=== PATIENT | male | born 1940 | race Caucasian/White ===

== ENCOUNTER 2017-06-03 09:38 | Inpatient (IN) | payer MEDICARE, OTHER ==
--- NOTE | 2017-06-03 09:49 | ER Document Report ---
ED Medical Screen (RME) - General Chief Complaint: Altered Mental Status Stated Complaint: POSSIBLE STROKE Time Seen by Provider: 06/03/17 09:44 Notes: According to the , patient acts as if he may be having another stroke this morning. He was fine when he went to bed. However, after awakening this morning, about 7 or 7:30 AM, noted that the patient was confused, shaking, and had trouble controlling his bowel movement. He is able to walk without difficulty and his speech is not slurred. Patient had a stroke about 5 or 6 years ago with very similar symptoms. Also, patient had a left carotid endarterectomy about 3 or 4 months ago. Patient has not been sick in any way recently. No vomiting or diarrhea. No chest pains. No shortness of breath. No fever or chills. Patient has a history of CABG X5, previous stroke, NIDDM, hypertension. Cholecystectomy. Left carotid endarterectomy. TRAVEL OUTSIDE OF THE [place] IN LAST 30 DAYS: No - Related Data Allergies/Adverse Reactions: No Known Allergies Allergy (Unverified 10/28/11 08:43) Past Medical History - Past Medical History Cardiac Medical History: Reports: Hx Heart Attack, Hx Hypercholesterolemia, Hx Hypertension Pulmonary Medical History: Denies: Hx Tuberculosis Endocrine Medical History: Reports: Hx Diabetes Mellitus Type 2, Hx Hypothyroidism Renal/ Medical History: Denies: Hx Peritoneal Dialysis Past Surgical History: Reports: Hx Cardiac Catheterization, Hx Cardiac Surgery, Hx Cholecystectomy, Hx Gastric Bypass Surgery. Denies: Hx Pacemaker - Immunizations Hx Diphtheria, Pertussis, Tetanus Vaccination: Yes Physical Exam - Vital signs Vitals: Temp Pulse Resp BP Pulse Ox 97.7 F 65 16 129/59 H 94 06/03/17 09:41 06/03/17 09:41 06/03/17 09:41 06/03/17 09:41 06/03/17 09:41 Course - Vital Signs Vital signs: Temp Pulse Resp BP Pulse Ox 97.7 F 65 16 129/59 H 94 06/03/17 09:41 06/03/17 09:41 06/03/17 09:41 06/03/17 09:41 06/03/17 09:41
[2017-06-03 10:32] LABS: ABSOLUTE EOSINOPHILS # (AUTO) 0.2 10^3/uL (0.0-0.6); ABSOLUTE LYMPHOCYTES (AUTO) 0.3 10^3/uL (0.5-4.7); ABSOLUTE MONOCYTES (AUTO) 0.3 10^3/uL (0.1-1.4); ABSOLUTE NEUT (AUTO) 2.5 10^3/uL (1.7-8.2); BASOPHILS % (AUTO) 0.7 % (0-2); EOSINOPHILS % (AUTO) 5.5 % (0-6); HEMATOCRIT 29.2 % (37.9-51.0); HEMOGLOBIN 9.6 g/dL (13.5-17.0); HGB HCT DIFFERENCE -0.4; LYMPHOCYTES % (AUTO) 9.7 % (13-45); MEAN CORPUSCULAR HEMOGLOBIN 31.6 pg (27.0-33.4); MEAN CORPUSCULAR HGB CONC 32.9 g/dL (32.0-36.0); MEAN CORPUSCULAR VOLUME 96 fl (80-97); MONOCYTES % (AUTO) 8.3 % (3-13); RED BLOOD COUNT 3.04 10^6/uL (4.35-5.55); RED CELL DISTRIBUTION WIDTH 15.7 % (11.5-14.0); SEGMENTED NEUTROPHILS % (AUTO) 75.8 % (42-78); WHITE BLOOD COUNT 3.2 10^3/uL (4.0-10.5)
--- NOTE | 2017-06-03 10:43 | RADIOLOGY REPORT (SQ) ---
EXAM DESCRIPTION: CT HEAD WITHOUT COMPLETED DATE/TIME: 06/03/2017 10:34 am REASON FOR STUDY: Confused, Hx same symptoms with previous stroke COMPARISON: 12/15/2011 TECHNIQUE: Axial images acquired through the brain without intravenous contrast. Images reviewed wi th bone, brain and subdural windows. Images stored on PACS. All CT scanners at this facility use dose modulation, iterative reconstruction, and/or weight based d osing when appropriate to reduce radiation dose to as low as reasonably achievable (ALARA). [facility]: Dose Right [facility]: CareDose [facility]: Dose Right [facility]: Teradose 4D [facility]: [employer] RADIATION DOSE: Up-to-date CT equipment and radiation dose reduction techniques were employed. CTDIv ol: 64.6 mGy. DLP: 1163 mGy-cm. mGy. LIMITATIONS: None. FINDINGS: VENTRICLES: Prominent. CEREBRUM: No masses. No hemorrhage. No midline shift. Old watershed infarcts left MCA distribution . Areas of low density in the white matter most likely due to chronic micro-vascular ischemic change . No evidence for acute infarction. CEREBELLUM: No masses. No hemorrhage. No alteration of density. No evidence for acute infarction. EXTRAAXIAL SPACES: Mild age-related involutional change. No fluid collections. No masses. ORBITS AND GLOBE: No intra- or extraconal masses. Normal contour of globe without masses. CALVARIUM: No fracture. PARANASAL SINUSES: No fluid or mucosal thickening. SOFT TISSUES: No mass or hematoma. OTHER: No other significant finding. IMPRESSION: Chronic ischemic changes. TECHNICAL DOCUMENTATION: JOB ID: [id number] Quality ID # [id number]: Final reports with documentation of one or more dose reduction techniques (e.g., Au tomated exposure control, adjustment of the mA and/or kV according to patient size, use of iterative reconstruction technique) 2010 [employer]- All Rights Reserved
[2017-06-03 10:46] LABS: ALANINE AMINOTRANSFERASE 30 U/L (21-72); ALKALINE PHOSPHATASE 107 U/L (38-126); ANION GAP 6 (5-19); ASPARTATE AMINO TRANSFERASE 25 U/L (17-59); BILIRUBIN,DIRECT 0.3 mg/dL (0.0-0.4); BILIRUBIN,TOTAL 0.7 mg/dL (0.2-1.3); BLOOD UREA NITROGEN 33 mg/dL (7-20); CALCIUM 8.6 mg/dL (8.4-10.2); CARBON DIOXIDE 21 mmol/L (22-30); CHLORIDE 112 mmol/L (98-107); CREATININE RESULT 1.49 mg/dL (0.52-1.25); GLUCOSE 114 mg/dL (75-110); POTASSIUM 5.9 mmol/L (3.6-5.0); SODIUM 139.4 mmol/L (137-145); TOTAL PROTEIN 6.2 g/dL (6.3-8.2)
--- NOTE | 2017-06-03 10:46 | ER Document Report ---
ED Neuro Symptoms/Deficit - General Mode of Arrival: Ambulatory Information source: Patient, Relative - TRAVEL OUTSIDE OF THE [place] IN LAST 30 DAYS: No - HPI Patient complains to provider of: Other - Confusion Associated symptoms: Other - See above <MARIN GILL - Last Filed: 06/03/17 19:35> <CLAIRE PARHAM - Last Filed: 06/03/17 19:36> - General Chief Complaint: Altered Mental Status Stated Complaint: confusion Time Seen by Provider: 06/03/17 09:44 Notes: Patient is a 76 year old male, with a past medical history including CVA, CABG, and cirrhosis, who presents to the emergency department with his for confusion onset this morning. Patient states that he feels fine and is not sure why he is here. Patient's reports that the patient woke up confused, did not know what time of day it was and had difficulty getting dressed. also states that patient had an uncontrolled bowel movement all over the bathroom which the patient does not remember, describes the stool as dark and tarry and the patient had a black bowel movement about 2 weeks ago as well. Per patient also developed a shake in his right arm and has been shuffling his feet for the past 3 days. denies patient vomiting, having a fever, or developing slurred speech. Patient is currently taking Naproxen, Ranexa, Aggrenox, and Fe. PCP: Dr. Epstein (MARIN GILL) - Related Data Allergies/Adverse Reactions: No Known Allergies Allergy (Unverified 10/28/11 08:43) Home Medications: Current Home Medications Aspirin/Dipyridamole [Aggrenox 25 mg-200 mg Capsule] 1 cap PO BID 06/03/17 [ History] Isosorbide Mononitrate [Isosorbide Mononitrate ER] 30 mg PO DAILY 06/03/17 [ History] Metformin HCl [Glucophage] 500 mg PO DAILY 06/03/17 [History] Naproxen 500 mg PO DAILY 06/03/17 [History] Pravastatin Sodium 40 mg PO QHS 06/03/17 [History] Ramipril [Altace 5 mg Capsule] 5 mg PO DAILY 06/03/17 [History] Ranolazine [Ranexa] 1,000 mg PO BID 06/03/17 [History] Spironolactone [Aldactone] 50 mg PO BID 06/03/17 [History] Past Medical History - General Information source: Patient, Relative - - Social History Smoking Status: Never Smoker Chew tobacco use (# tins/day): No Frequency of alcohol use: None Drug Abuse: None Family History: Reviewed & Not Pertinent Patient has suicidal ideation: No Patient has homicidal ideation: No - Past Medical History Cardiac Medical History: Reports: Hx Heart Attack, Hx Hypercholesterolemia, Hx Hypertension Endocrine Medical History: Reports: Hx Diabetes Mellitus Type 2, Hx Hypothyroidism GI Medical History: Reports: Hx Cirrhosis Past Surgical History: Reports: Hx Cardiac Catheterization, Hx Cardiac Surgery, Hx Cholecystectomy, Hx Gastric Bypass Surgery - Immunizations Hx Diphtheria, Pertussis, Tetanus Vaccination: Yes <MARIN GILL - Last Filed: 06/03/17 19:35> Review of Systems - Review of Systems Constitutional: denies: Fever EENT: No symptoms reported Cardiovascular: No symptoms reported Respiratory: No symptoms reported Gastrointestinal: See HPI, Black stools, Fecal incontinence. denies: Vomiting Genitourinary: No symptoms reported Male Genitourinary: No symptoms reported Musculoskeletal: No symptoms reported Skin: No symptoms reported Hematologic/Lymphatic: No symptoms reported Neurological/Psychological: See HPI, Confusion, Gait changes - shuffling, Tremor. denies: Speech impairment -: Yes All other systems reviewed and negative <MARIN GILL - Last Filed: 06/03/17 19:35> Physical Exam <MARIN GILL - Last Filed: 06/03/17 19:35> <CLAIRE PARHAM - Last Filed: 06/03/17 19:36> - Vital signs Vitals: Temp Pulse Resp BP Pulse Ox 97.7 F 65 16 129/59 H 94 06/03/17 09:41 06/03/17 09:41 06/03/17 09:41 06/03/17 09:41 06/03/17 09:41 - Notes Notes: GENERAL: Alert. No acute distress. HEAD: Normocephalic, atraumatic. EYES: Pupils equal, round, and reactive to light. Extraocular movements intact. Pterygium to lateral aspect of right eye that crosses into iris. ENT: Oral mucosa moist, tongue midline. NECK: Full range of motion. Supple. Trachea midline. LUNGS: Clear to auscultation bilaterally, no wheezes, rales, or rhonchi. No respiratory distress. HEART: 2 out of 6 holosystolic murmur. Regular rate and rhythm. No gallops, or rubs. ABDOMEN: Soft, non-tender. Non-distended. Bowel sounds present in all 4 quadrants. RECTAL: 1 external non thrombosed hemorrhoid. Minimal stool, melanotic, not grossly bloody. Good sphincter tone. EXTREMITIES: Moves all 4 extremities spontaneously. No edema, radial and dorsalis pedis pulses 2/4 bilaterally. No cyanosis. Enlarged bursa on right elbow, non tender, no erythema. NEUROLOGICAL: Initially answered month wrong but corrected response. Confused by simple requests but will obey other requests normally. Normal speech. Slight left upper eye lid droop that corrects with effort. Cranial nerves II through XII grossly intact. Biceps and patellar DTRs 2+ bilaterally. PSYCH: Normal affect, normal mood. No evidence of hallucinations. SKIN: Warm, dry, normal turgor. No rashes or lesions noted. (MARIN GILL) Course - Laboratory Result Diagrams: 06/03/17 17:18 06/03/17 17:18 - Consults Dr. Ramirez Time consulted: 11:50 - Agrees on plan to admit patient, told to call Dr. Gross Dr. Cooper Time consulted: 12:00 - Agrees to admit patient, requests I call Dr. Barajas for consult Dr. Barajas Time consulted: 12:08 - Paged Dr. Barajas for consult, did not anwer and left voicemail. <MARIN GILL - Last Filed: 06/03/17 19:35> - Laboratory Result Diagrams: 06/03/17 17:18 06/03/17 17:18 <CLAIRE PARHAM - Last Filed: 06/03/17 19:36> - Re-evaluation Re-evalutation: 06/03/17 12:23 CBC shows pancytopenia with white count of 3.2, hemoglobin 9.6, platelets of 38 , venous blood gas grossly unremarkable, chemistries show elevated potassium 5.9 which does not show any EKG changes from this. Treated with insulin, glucose, calcium gluconate, Lasix, hydration. There is acute renal failure with a BUN of 33 and a creatinine of 1.49, cardiac enzymes negative, lactic acid normal, ammonia only slightly elevated at 33.3, urinalysis shows no acute process, occult blood is positive, head CT does not show any acute process. 06/03/17 12:24 Protonix drip was started for acute GI bleed. Stool was melanotic and heme positive. Discussed with Dr. Ramirez who stated the admission will go to Dr. Gross, Dr. Gross accepts the admission to her service. Request that I consult Dr. Barajas, phone call was placed for Dr. Barajas. Awaiting a phone call back. 06/03/17 19:35 Dr. Gross aware that I did not yet hear back from Dr. Barajas. (CLAIRE PARHAM ) - Vital Signs Vital signs: Temp Pulse Resp BP Pulse Ox 97.6 F 57 L 16 167/52 H 100 06/03/17 15:48 06/03/17 15:48 06/03/17 15:48 06/03/17 15:48 06/03/17 15:48 - Laboratory Laboratory results interpreted by me: 06/03/17 06/03/17 06/03/17 10:15 10:15 10:15 WBC 3.2 L RBC 3.04 L Hgb 9.6 L Hct 29.2 L RDW 15.7 H Plt Count 38 L Lymphocytes % 9.7 L Absolute Lymphocytes 0.3 L PT 17.0 H APTT 41.4 H Potassium 5.9 H Chloride 112 H Carbon Dioxide 21 L BUN 33 H Creatinine 1.49 H Est GFR ( Amer) 55 L Est GFR (Non-Af Amer) 46 L Glucose 114 H Ammonia Total Protein 6.2 L Albumin 3.0 L Urine Protein 06/03/17 06/03/17 10:40 11:00 WBC RBC Hgb Hct RDW Plt Count Lymphocytes % Absolute Lymphocytes PT APTT Potassium Chloride Carbon Dioxide BUN Creatinine Est GFR ( Amer) Est GFR (Non-Af Amer) Glucose Ammonia 33.3 H Total Protein Albumin Urine Protein 30 H - EKG Interpretation by Me Additional EKG results interpreted by me: 06/03/17 12:23 EKG shows sinus rhythm at a rate of 63, normal axis, normal intervals, no ST segment elevations or depressions, there is T-wave flattening in aVL and lead II per my interpretation. (CLAIRE PARHAM) Discharge <MARIN GILL - Last Filed: 06/03/17 19:35> - Discharge Admitting Provider: Hospitalist - [facility] Admitted: [facility] <CLAIRE PARHAM - Last Filed: 06/03/17 19:36> - Discharge Clinical Impression: Acute upper GI bleed, Pancytopenia, Delirium, Cirrhosis of liver not due to alcohol Acute renal failure Qualifiers: Acute renal failure type: unspecified Qualified Code(s): N17.9 - Acute kidney failure, unspecified Scribe Attestation: 06/03/17 19:36 I personally performed the services described in the documentation, reviewed and edited the documentation which was dictated to the scribe in my presence, and it accurately records my words and actions. (CLAIRE PARHAM) Scribe Documentation - Scribe Written by Jourdan:: jourdan Read, 06/03/17, 1109 acting as scribe for :: Darcie <MARIN GILL - Last Filed: 06/03/17 19:35>
[2017-06-03 10:58] LABS: APPEARANCE,URINE CLEAR; BILIRUBIN,URINE NEGATIVE (NEGATIVE); GLUCOSE, URINE NEGATIVE (NEGATIVE); KETONES,URINE NEGATIVE (NEGATIVE); LEUKOCYTE ESTERASE,URINE NEGATIVE (NEGATIVE); NITRITE,URINE NEGATIVE (NEGATIVE); PROTEIN,URINE 30 mg/dL (NEGATIVE); UROBILINOGEN,URINE NEGATIVE mg/dL (<2.0)
[2017-06-03 11:18] LABS: VENOUS BLOOD BASE EXCESS -1.7 mmol/L; VENOUS BLOOD HCO3 24.3 mmol/L (20-32); VENOUS BLOOD PCO2 46.1 mmHg (35-63); VENOUS BLOOD PH 7.34 (7.30-7.42)
[2017-06-03 11:19] LABS: CREATINE KINASE MB 1.63 ng/mL (<4.55); TROPONIN I 0.014 ng/mL
[2017-06-03] MEDS ORDERED: CALCIUM GLUCONATE 1000 MG/10 ML INJ IV ONE (11:19)
[2017-06-03] MEDS ORDERED: DEXTROSE 50%-WATER 25 GM/50 ML DISP.SYRIN IV ONE (11:19)
[2017-06-03] MEDS ORDERED: INSULIN REG, HUMAN 100 UNIT/ML 3 ML VIAL (PYX) SUBCUT ONE ×2 (11:19→11:20)
[2017-06-03] MEDS ORDERED: NORMAL SALINE 1000 ML 1,000 ML IV ONE (11:19)
[2017-06-03] MEDS ORDERED: FUROSEMIDE INJ/PF 40 MG/4 ML SDV IV ONE (11:20)
[2017-06-03] MEDS ORDERED: PANTOPRAZOLE SODIUM 40 MG VIAL IV PRN ×2 (12:05→13:35)
[2017-06-03] MEDS ORDERED: PANTOPRAZOLE SODIUM 40 MG VIAL IV ONE (12:05)
--- NOTE | 2017-06-03 12:58 | EKG REPORT ---
SEVERITY:- ABNORMAL ECG - SINUS RHYTHM FIRST DEGREE AVB. : Confirmed by: Gal Vásquez MD 03-Jun-2017 12:57:24
[2017-06-03] MEDS ORDERED: 1/2 NORMAL SALINE 1,000 ML IV PRN (13:22)
[2017-06-03] MEDS ORDERED: ONDANSETRON HCL INJ/PF 4 MG/2 ML SDV IV PRN (13:22)
[2017-06-03] MEDS ORDERED: DEXTROSE 40% GEL 15 GM TUBE PO PRN ×4 (13:22→13:34)
[2017-06-03] MEDS ORDERED: GLUCAGON,HUMAN RECOMB 1 MG INJ SUBCUT PRN (13:22)
[2017-06-03] MEDS ORDERED: DEXTROSE 50%-WATER 25 GM/50 ML DISP.SYRIN IV PRN ×4 (13:22→13:34)
[2017-06-03] MEDS ORDERED: TEMAZEPAM 7.5 MG CAPSULE PO PRN (13:22)
[2017-06-03] MEDS ORDERED: GLUCAGON,HUMAN RECOMB 1 MG INJ IM PRN (13:34)
[2017-06-03] MEDS ORDERED: INSULIN REG, HUMAN 100 UNIT/ML 3 ML VIAL (PYX) SUBCUT PRN (13:34)
[2017-06-03 13:50] LABS: PARTIAL THROMBOPLASTIN TIME 41.4 SEC (23.5-35.8)
[2017-06-03] MEDS ORDERED: NORMAL SALINE 100 ML with PANTOPRAZOLE SODIUM 80 MG IV PRN ×2 (14:13)
--- NOTE | 2017-06-03 14:16 | RADIOLOGY REPORT (SQ) ---
EXAM DESCRIPTION: CHEST SINGLE VIEW COMPLETED DATE/TIME: 06/03/2017 1:59 pm REASON FOR STUDY: GI bleed COMPARISON: 10/28/2011 EXAM PARAMETERS: NUMBER OF VIEWS: One view. TECHNIQUE: Single frontal radiographic view of the chest acquired. RADIATION DOSE: NA LIMITATIONS: None. FINDINGS: LUNGS AND PLEURA: No opacities, masses or pneumothorax. No pleural effusion. MEDIASTINUM AND HILAR STRUCTURES: No masses. Contour normal. HEART AND VASCULAR STRUCTURES: No cardiomegaly. Old sternotomy. BONES: No acute findings. HARDWARE: None in the chest. OTHER: No other significant finding. IMPRESSION: NO ACUTE RADIOGRAPHIC FINDING IN THE CHEST. TECHNICAL DOCUMENTATION: JOB ID: [id number]
--- NOTE | 2017-06-03 14:36 | PDOC H&P ---
History of Present Illness Admission Date/PCP: 06/03/17 13:22 KHLOE COLE MD Patient complains of: The Brought her to ER secondary to confusion. She was concerned that he may have suffered a stroke. History of Present Illness: GABI GONG is a 76 year old male who has multiple comorbidities to include diabetes, a recent diagnosis of cirrhosis, pancytopenia, coronary artery disease and cerebrovascular disease. The patient was in his usual state of health until this morning. At approximately 03 100 the patient's woke up because she thought the light on in the bathroom. She got up to turn off the light. At approximately 730 this morning the patient's noted a bad smell. She went to the bathroom to check on her . He had defecated all over the floor. She said that the color of the stool was black and tarry. At that time her was very confused. He did not realize what had happened. He was lying in stool but when he was asked to take a shower he did not understand why. The then brought her to the emergency department because she was worried that he had a stroke. Apparently, the patient did have a stroke about 5-6 years ago and presented in a similar fashion. Patient was also having cold the buttoning his pants. Of note, the patient has been slightly ataxic. This started about 2 days ago. The also noted that her has had some shaking of his right forearm. Review of systems: The patient feels well. He states that he feels better than he has in quite some time. He has no shortness of breath. He has no chest pain. He has no abdominal pain. He reports no nausea or vomiting. He reports no recent constipation. He has not had any subjective fevers, chills or sweats. He has not had any skin rashes. He reports no new medications. He has not had any recent travel. Past Medical History Cardiac Medical History: Reports: Coronary Artery Disease, Myocardial Infarction , Hyperlipidema, Hypertension Pulmonary Medical History: Denies: Tuberculosis Neurological Medical History: Reports: Ischemic CVA Endocrine Medical History: Reports: Diabetes Mellitus Type 2, Hypothyroidism GI Medical History: Reports: Cirrhosis Hematology: Reports: Anemia Hematology History Note: Patient has a history of calvillo cytopenia and is followed by a local paper supervisor in [place]. Past Surgical History Past Surgical History: Reports: Cardiac Catheterization, Cholecystectomy, Gastric Bypass Surgery Denies: Pacemaker Social History Smoking Status: Never Smoker Frequency of Alcohol Use: None Hx Recreational Drug Use: No Hx Prescription Drug Abuse: No - Advance Directive Resuscitation Status: Do Not Resuscitate Family History Family History: Reviewed & Not Pertinent Parental Family History Reviewed: Yes - Mother: brain cancer; dementia in mother 's brother Children Family History Reviewed: NA Sibling(s) Family History Reviewed.: NA Medication/Allergy Home Medications: Ferrous Sulfate [Iron] 325 mg PO TID 10/28/11 Fluoxetine HCl [Prozac 20 Mg Capsule] 20 mg PO BID 10/28/11 Levothyroxine Sodium [Levoxyl] 125 mcg PO DAILY 10/28/11 Metformin HCl [Glucophage] 1,000 mg PO BID 10/28/11 Aspirin/Dipyridamole [Aggrenox 25 mg-200 mg Capsule] 1 each PO BID 06/03/17 Isosorbide Mononitrate [Isosorbide Mononitrate ER] 30 mg PO DAILY 06/03/17 Naproxen 500 mg PO DAILY 06/03/17 Pravastatin Sodium 40 mg PO DAILY 06/03/17 Ramipril [Altace 5 mg Capsule] 5 mg PO DAILY 06/03/17 Ranolazine [Ranexa] 1,000 mg PO BID 06/03/17 Spironolactone [Aldactone] 50 mg PO BID 06/03/17 Allergies/Adverse Reactions: No Known Allergies Allergy (Unverified 10/28/11 08:43) Physical Exam Vital Signs: Temp Pulse Resp BP Pulse Ox 97.7 F 65 19 161/84 H 100 06/03/17 09:41 06/03/17 09:41 06/03/17 13:01 06/03/17 13:00 06/03/17 13:00 Additional comments: Appears to be his stated age. In fact, patient appears to be fairly healthy for the age of 76. He has normal body habitus. His facial appearance is normal. His dentition is good. Cranial nerves II through XII are intact. The oropharynx demonstrates moist mucous membranes. Lips and gums are normal. The patient neck is supple. The trachea is midline. Thyroid is not palpable. There is no JVD. There is no cervical lymphadenopathy. The patient's lungs are clear to auscultation both anteriorly and posteriorly. No adventitious sounds are heard. Air excursion is good and symmetrical. The cardiac exam is regular. He does not have any murmurs, gallops or rubs. The apical impulse is not displaced. The abdomen is nondistended. The abdomen is nontender. Bowel sounds are present in the lower quadrants. There is no guarding or rebound noted. There are no hernias or masses noted. I did not appreciate hepatosplenomegaly although the abdomen is mildly obese. The patient lower extremities are warm to touch. The patient does not have any pitting edema. The patient does not have any acute skin lesions or rashes. The patient's neurological exam is as follows. He is slightly confused and unable to follow all commands without specific prompting. The patient's cranial nerves II through XII are intact. The patient's gait was not tested. Patient's strength is 4+/5 in the right upper and lower extremity and otherwise normal. Patient's lower extremity reflexes are 2+. The patient's sensory exam appears to be normal. The patient's affect is somewhat unusual. He appears to laugh inappropriately. Results Impressions: Head CT 06/03/17 09:46 IMPRESSION: Chronic ischemic changes. Assessment & Plan - Diagnosis (1) Hyperkalemia Is this a current diagnosis for this admission?: YesPlan: Patient received insulin with glucose in the emergency department. I will order a repeat potassium. (2) Hyperammonemia Is this a current diagnosis for this admission?: YesPlan: begin lactulose (3) Right sided weakness Is this a current diagnosis for this admission?: YesPlan: Certainly, the patient may have had a subtle stroke. I am going to order an MRI. I am going to order speech, occupational and physical therapy. The patient is not a candidate for antiplatelet or anticoagulation at this time. We will monitor his symptoms. His symptoms actually began 2-3 days prior to presentation. With his GI bleed he certainly would not be a candidate for thrombolytic therapy. And, the patient could have a subtle bleed secondary to his thrombocytopenia with current use of aggrenox. (4) Acute renal failure Qualifiers: Acute renal failure type: unspecified Qualified Code(s): N17.9 - Acute kidney failure, unspecified Is this a current diagnosis for this admission?: YesPlan: He will be receiving intravenous fluids. We will monitor electrolytes closely. Holding the patient's AGNIESZKA inhibitor and metformin. (5) Acute upper GI bleed Is this a current diagnosis for this admission?: YesPlan: Place a consultation with Dr. Barajas. We will continue Protonix drip. We will cycle hemoglobins every [address] the patient in a monitored bed. We will make sure the patient has 2 IV sites. (6) Cirrhosis of liver not due to alcohol Is this a current diagnosis for this admission?: YesPlan: Presumably, AMBROSIO. GI is following this patient. (7) Delirium Is this a current diagnosis for this admission?: YesPlan: Is likely multifactorial. I suspect this is due to the elevated ammonia from the patient's cirrhosis. Acute renal failure could be playing a role. In addition, the patient may have acute mental status changes from an acute CVA with pseudo-bulbar features. (8) Pancytopenia Is this a current diagnosis for this admission?: YesPlan: Patient is not a candidate for antiplatelet therapy at this time. He will be monitored for the need for packed red blood cell and platelet transfusion. (9) Cerebrovascular disease Is this a current diagnosis for this admission?: YesPlan: The above under right sided weakness. The patient recently had a left carotid endarterectomy by Dr. Stefan Babin in [place] - approximately 4 months ago. (10) Diabetes Is this a current diagnosis for this admission?: YesPlan: Patient's metformin is being held. He will be treated with sliding scale insulin. He is currently n.p.o. - Time Time Spent: 50 to 70 Minutes - Inpatient Certification Medical Necessity: Need For IV Fluids, Risk of Complication if Not Cared For in Hospital
--- NOTE | 2017-06-03 14:50 | Progress Note ---
Provider Note Provider Note: I did Confirm that the patient is a DNR. Should the patient be unable to make decisions for himself then his Giovanna Mayen will make his decisions. Her phone number is [phone].
[2017-06-03] MEDS ORDERED: ISOSORBIDE MONONITRATE 30 MG TAB.ER.24H PO ONE (15:30)
--- NOTE | 2017-06-03 16:19 | RADIOLOGY REPORT (SQ) ---
EXAM DESCRIPTION: CAROTID DOPPLER COMPLETED DATE/TIME: 06/03/2017 3:57 pm REASON FOR STUDY: R/O CVA COMPARISON: 11/24/2011 TECHNIQUE: Grayscale ultrasound, Doppler velocity and spectra, and color Doppler images acquired of the extra-cranial carotid and vertebral arteries. Images stored on PACS. LIMITATIONS: None. FINDINGS: RIGHT CAROTID CCA Velocities: Within normal limits. ICA Velocities Peak systolic 2.05 m/s. End diastolic 0.28 m/s. Proximal ICA/CCA peak systolic ratio 1.8. Heterogeneous plaque in the bulb and proximal ICA. LEFT CAROTID CCA Velocities: Within normal limits. ICA Velocities Peak systolic 1.07 m/s. End diastolic 0.17 m/s. Proximal ICA/CCA peak systolic ratio 1.6. Spectra normal. No significant plaque. VERTEBRAL ARTERIES: Antegrade flow. Elevated velocity with spectral broadening in the right vertebra l artery. SUBCLAVIAN ARTERIES: Not imaged. OTHER: No other significant finding. 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 No significant stenosis left ICA. Stenosis right vertebral artery. COMMENT: Quality ID #[id number]: Velocity criteria are extrapolated from the diameter data as defined by t he Society of Radiologists in Ultrasound Consensus Conference. Radiology 2003: 229; 340-346. TECHNICAL DOCUMENTATION: JOB ID: [id number] [employer]- All Rights Reserved
[2017-06-03 17:52] LABS: HEMOGLOBIN 10.1 g/dL (13.5-17.0); HGB HCT DIFFERENCE -0.7; MEAN CORPUSCULAR HEMOGLOBIN 31.3 pg (27.0-33.4); MEAN CORPUSCULAR HGB CONC 32.4 g/dL (32.0-36.0); MEAN CORPUSCULAR VOLUME 97 fl (80-97); RED BLOOD COUNT 3.21 10^6/uL (4.35-5.55); WHITE BLOOD COUNT 3.2 10^3/uL (4.0-10.5)
[2017-06-03] MEDS ORDERED: (PENDING PHARMACY ID) (Spironolactone [Aldactone] 50 MG) PO SCH (18:00)
[2017-06-03] MEDS ORDERED: (PENDING PHARMACY ID) (Ranolazine [Ranexa] 1,000 MG) PO SCH (18:00)
[2017-06-03 18:21] LABS: ANION GAP 8 (5-19); BLOOD UREA NITROGEN 33 mg/dL (7-20); CARBON DIOXIDE 20 mmol/L (22-30); CHLORIDE 114 mmol/L (98-107); CREATININE RESULT 1.54 mg/dL (0.52-1.25); GLUCOSE 83 mg/dL (75-110); POTASSIUM 5.6 mmol/L (3.6-5.0); SODIUM 141.5 mmol/L (137-145)
[2017-06-03] MEDS: RANOLAZINE 500 MG TAB.SR.12H PO SCH (18:21)
--- NOTE | 2017-06-03 20:11 | PDOC CONSULTATION ---
Consultation Consult Date: 06/03/17 History of Present Illness Admission Date/PCP: 06/03/17 13:22 KHLOE COLE MD History of Present Illness: This is a 76-year-old patient who was brought admitted to the emergency room with change in mental status. According to the he went to bed last night with no problems but he was seen in the bathroom during the night with stool all over the floor. He also appeared confused and did not realize what had happened. The brought him in thinking he may have had a stroke. According to his family his mental status has improved significantly while in the hospital. He has no previous history of confusion or encephalopathy. He was diagnosed with cirrhosis a few years ago. The also noticed his stool to be very dark and almost black during the night but according to the nurses the stool was dark brown in the hospital. His hemoglobin on admission was 9.6 and a repeat was 10.1. He has a chronic history of anemia with a hemoglobin of 9.2 in July 2016 and 9.8 in September 2016. He has chronic renal failure. He had an EGD and colonoscopy in August of last year that showed gastric erosions, sigmoid diverticulosis, and a few angiodysplasia in the right colon that were cauterized. He does not have esophageal varices Past Medical History Cardiac Medical History: Reports: Coronary Artery Disease, Myocardial Infarction , Hyperlipidema, Hypertension Pulmonary Medical History: Denies: Tuberculosis Neurological Medical History: Reports: Ischemic CVA Endocrine Medical History: Reports: Diabetes Mellitus Type 2, Hypothyroidism GI Medical History: Reports: Cirrhosis Psychiatric Medical History: Reports: Depression Hematology: Reports: Anemia Past Surgical History Past Surgical History: Reports: Cardiac Catheterization, Cholecystectomy, Gastric Bypass Surgery Denies: Pacemaker Social History Smoking Status: Never Smoker Last Time Smoked: 60 years ago Frequency of Alcohol Use: None Hx Recreational Drug Use: No Hx Prescription Drug Abuse: No - Advance Directive Resuscitation Status: Do Not Resuscitate Family History Family History: Reviewed & Not Pertinent Parental Family History Reviewed: No Children Family History Reviewed: NA Sibling(s) Family History Reviewed.: NA Medication/Allergy Home Medications: Ferrous Sulfate [Iron] 325 mg PO TID 10/28/11 Fluoxetine HCl [Prozac 20 Mg Capsule] 20 mg PO BID 10/28/11 Levothyroxine Sodium [Levoxyl] 125 mcg PO DAILY 10/28/11 Aspirin/Dipyridamole [Aggrenox 25 mg-200 mg Capsule] 1 cap PO BID 06/03/17 Isosorbide Mononitrate [Isosorbide Mononitrate ER] 30 mg PO DAILY 06/03/17 Metformin HCl [Glucophage] 500 mg PO DAILY 06/03/17 Naproxen 500 mg PO DAILY 06/03/17 Pravastatin Sodium 40 mg PO QHS 06/03/17 Ramipril [Altace 5 mg Capsule] 5 mg PO DAILY 06/03/17 Ranolazine [Ranexa] 1,000 mg PO BID 06/03/17 Spironolactone [Aldactone] 50 mg PO BID 06/03/17 Allergies/Adverse Reactions: No Known Allergies Allergy (Unverified 10/28/11 08:43) Review of Systems All systems: reviewed and no additional remarkable complaints except as stated Physical Exam Vital Signs: Temp Pulse Resp BP Pulse Ox 97.6 F 57 L 16 167/52 H 100 06/03/17 15:48 06/03/17 15:48 06/03/17 15:48 06/03/17 15:48 06/03/17 15:48 Intake & Output 06/02/17 06/03/17 06/04/17 06:59 06:59 06:59 Intake Total 481 Output Total 600 Balance -119 Weight 93.7 kg Exam: General: Patient is alert and looks well. He does not appear confused at the moment HEENT: There is no pallor or jaundice. PERRLA. Oropharynx normal Respiratory: No chest deformity. No respiratory distress. Chest wall palpitation was unremarkable. Breath sounds were normal Cardiovascular: Heart sounds 1 and 2 normal with no murmurs. Abdominal: Not distended. Soft and nontender. Liver and spleen not palpable. No ascites demonstrated. Bowel sounds active. Rectal examination was deferred. Extremities: No edema Neurological: Alert and oriented x4. Grossly nonfocal. Normal speech Skin: No significant rash Psychological: Normal affect Results Laboratory Results: 06/03/17 17:18 06/03/17 17:18 06/03/17 06/03/17 17:18 17:18 WBC 3.2 L RBC 3.21 L Hgb 10.1 L Hct 31.0 L MCV 97 MCH 31.3 MCHC 32.4 RDW 16.0 H Plt Count 37 L Sodium 141.5 Potassium 5.6 H Chloride 114 H Carbon Dioxide 20 L Anion Gap 8 BUN 33 H Creatinine 1.54 H Est GFR ( Amer) 53 L Est GFR (Non-Af Amer) 44 L Glucose 83 Calcium 9.0 Impressions: Carotid Doppler Study 06/03/17 00:00 IMPRESSION: Right: 50- 69% stenosis proximal ICA, closer to 69%. No significant stenosis left ICA. Stenosis right vertebral artery. Head CT 06/03/17 09:46 IMPRESSION: Chronic ischemic changes. Chest X-Ray 06/03/17 13:26 IMPRESSION: NO ACUTE RADIOGRAPHIC FINDING IN THE CHEST. Assessment & Plan - Diagnosis (1) Encephalopathy, hepatic Is this a current diagnosis for this admission?: YesPlan: He was admitted with a short episode of encephalopathy which is most likely related to his cirrhosis. He also had hyperkalemia on admission. I will start him on lactulose every 2 hours until he has diarrhea and then continue with enough lactulose to provide 2-3 loose bowel movements a day. (2) Splenomegaly Is this a current diagnosis for this admission?: Yes (3) Anemia in chronic renal disease Is this a current diagnosis for this admission?: YesPlan: He has chronic anemia but does not appear was done usual. His current hemoglobin is actually more than it was in July of last year. I do not believe he had any significant GI bleeding (4) Cirrhosis of liver not due to alcohol Is this a current diagnosis for this admission?: Yes (5) Pancytopenia Is this a current diagnosis for this admission?: YesPlan: This is likely sequestration from his splenomegaly (6) Melena Plan: According to his his stool was black at home but it was dark brown in the hospital. His hemoglobin is stable. He should continue with a PPI especially with his use of naproxen and Aggrenox. I will follow him in the office
[2017-06-03] MEDS ORDERED: LACTULOSE SYRUP 20 GM/30 ML UDCUP PR SCH (22:00)
--- NOTE | 2017-06-03 22:52 | RADIOLOGY REPORT (SQ) ---
EXAM DESCRIPTION: MRI HEAD WITHOUT COMPLETED DATE/TIME: 06/03/2017 10:31 pm REASON FOR STUDY: R/O CVA COMPARISON: CT done earlier the same day. , prior MRI dated 10/28/2011 TECHNIQUE: Multiplanar imaging includes non-contrasted T1, T2, FLAIR, and diffusion with ADC map seq uences. Images stored on PACS. LIMITATIONS: None. FINDINGS: ANATOMY: No anomalies. Normal vascular flow voids. Pituitary fossa normal. CSF SPACES: Atrophy induced prominence of ventricles and CSF spaces. CEREBRUM: High signal intensity lesions scattered throughout the white matter on FLAIR imaging with d istribution suggesting micro-vascular ischemic changes. No evidence of hemorrhage, mass, or extraaxi al fluid collection. There are old left-sided MCA distribution infarcts. POSTERIOR FOSSA: No signal alteration. No hemorrhage. No edema, masses or mass effect. Internal rojas tory canals, cerebello-pontine angles, mastoids normal. DIFFUSION IMAGING: Negative for acute or sub-acute infarction. ORBITS: No masses. Globes normal. PARANASAL SINUSES: No fluid levels. Mucosa normal. OTHER: No other significant finding. IMPRESSION: ATROPHY AND CHRONIC MICRO-VASCULAR ISCHEMIC CHANGES. OTHERWISE NORMAL MRI OF THE BRAIN W ITHOUT INTRAVENOUS GADOLINIUM CONTRAST. TECHNICAL DOCUMENTATION: JOB ID: [id number]- All Rights Reserved
[2017-06-03] MEDS: FLUOXETINE HCL 20 MG CAPSULE PO SCH (23:01)
[2017-06-03] MEDS: ATORVASTATIN CALCIUM 10 MG TABLET PO SCH (23:02)
[2017-06-03] MEDS: LACTULOSE SYRUP 20 GM/30 ML UDCUP PO SCH (23:02)
[2017-06-04] MEDS: LACTULOSE SYRUP 20 GM/30 ML UDCUP PO SCH ×12 (01:04→23:53)
[2017-06-04] MEDS: LEVOTHYROXINE SODIUM 0.1 MG TABLET PO SCH (08:45)
[2017-06-04] MEDS: LEVOTHYROXINE SODIUM 0.025 MG TABLET PO SCH (08:45)
[2017-06-04] MEDS: CYANOCOBALAMIN/FA/PYRIDOXINE TABLET PO SCH (09:53)
[2017-06-04] MEDS: FLUOXETINE HCL 20 MG CAPSULE PO SCH ×2 (09:55→22:00)
[2017-06-04] MEDS: ISOSORBIDE MONONITRATE 30 MG TAB.ER.24H PO SCH (09:56)
[2017-06-04] MEDS: RANOLAZINE 500 MG TAB.SR.12H PO SCH ×2 (09:56→17:42)
[2017-06-04] MEDS ORDERED: (PENDING PHARMACY ID) (Pravastatin Sodium [Pravastatin Sodium] 40 MG) PO SCH (10:00)
[2017-06-04] MEDS ORDERED: SPIRONOLACTONE 25 MG TABLET PO SCH (10:00)
[2017-06-04] MEDS ORDERED: LEVOTHYROXINE SODIUM 125 MCG PO SCH (10:00)
[2017-06-04 10:02] LABS: ANION GAP 8 (5-19); BLOOD UREA NITROGEN 31 mg/dL (7-20); CARBON DIOXIDE 20 mmol/L (22-30); CHLORIDE 112 mmol/L (98-107); GLUCOSE 150 mg/dL (75-110); POTASSIUM 5.2 mmol/L (3.6-5.0)
--- NOTE | 2017-06-04 16:25 | PDOC PROGRESS REPORT ---
Subjective Progress Note for:: 06/04/17 Subjective:: Patient was seen on morning rounds. He is resting on the side of the bed eating breakfast. He does not recall why he came to the hospital. He thought it was because he brought his here as a patient. He is aware of person and place , admits to not knowing the date or the time. He denies any shortness of breath , chest pain or dizziness. He denies any nausea, vomiting or abdominal pain. He denies any other complaints at present time. Physical Exam Vital Signs: Temp Pulse Resp BP Pulse Ox 98.6 F 66 16 144/48 H 100 06/04/17 11:58 06/04/17 11:58 06/04/17 11:58 06/04/17 11:58 06/04/17 11:58 Intake & Output 06/03/17 06/04/17 06/05/17 06:59 06:59 06:59 Intake Total 1575 360 Output Total 1875 300 Balance -300 60 Weight 93.7 kg General appearance: PRESENT: no acute distress, well-developed, well-nourished Head exam: PRESENT: atraumatic, normocephalic Eye exam: PRESENT: conjunctiva pink, EOMI, PERRLA. ABSENT: scleral icterus Ear exam: PRESENT: normal external ear exam Mouth exam: PRESENT: moist, tongue midline Neck exam: ABSENT: carotid bruit, JVD, lymphadenopathy, thyromegaly Respiratory exam: PRESENT: clear to auscultation isabel. ABSENT: rales, rhonchi, wheezes Cardiovascular exam: PRESENT: RRR. ABSENT: diastolic murmur, rubs, systolic murmur GI/Abdominal exam: PRESENT: normal bowel sounds, soft Rectal exam: PRESENT: deferred Extremities exam: PRESENT: full ROM. ABSENT: calf tenderness, clubbing, pedal edema Musculoskeletal exam: PRESENT: ambulatory, full ROM Neurological exam: PRESENT: alert, altered, awake, oriented to person, oriented to place, CN II-XII grossly intact. ABSENT: motor sensory deficit Psychiatric exam: PRESENT: appropriate affect, normal mood. ABSENT: homicidal ideation, suicidal ideation Skin exam: PRESENT: dry, intact, warm. ABSENT: cyanosis, rash Results Laboratory Results: 06/03/17 17:18 06/04/17 09:30 06/03/17 06/03/17 06/04/17 17:18 17:18 09:30 WBC 3.2 L RBC 3.21 L Hgb 10.1 L Hct 31.0 L MCV 97 MCH 31.3 MCHC 32.4 RDW 16.0 H Plt Count 37 L Sodium 141.5 140.0 Potassium 5.6 H 5.2 H Chloride 114 H 112 H Carbon Dioxide 20 L 20 L Anion Gap 8 8 BUN 33 H 31 H Creatinine 1.54 H 1.70 H Est GFR ( Amer) 53 L 48 L Est GFR (Non-Af Amer) 44 L 39 L Glucose 83 150 H Calcium 9.0 9.0 Impressions: Carotid Doppler Study 06/03/17 00:00 IMPRESSION: Right: 50- 69% stenosis proximal ICA, closer to 69%. No significant stenosis left ICA. Stenosis right vertebral artery. Head MRI 06/03/17 00:00 IMPRESSION: ATROPHY AND CHRONIC MICRO-VASCULAR ISCHEMIC CHANGES. OTHERWISE NORMAL MRI OF THE BRAIN WITHOUT INTRAVENOUS GADOLINIUM CONTRAST. Head CT 06/03/17 09:46 IMPRESSION: Chronic ischemic changes. Chest X-Ray 06/03/17 13:26 IMPRESSION: NO ACUTE RADIOGRAPHIC FINDING IN THE CHEST. Assessment & Plan - Diagnosis (1) Cirrhosis of liver not due to alcohol Is this a current diagnosis for this admission?: YesPlan: Patient started on lactulose. GI consult was done. No active bleeding has been noted (2) Encephalopathy, hepatic Is this a current diagnosis for this admission?: YesPlan: Improving with hydration and lactulose (3) Hyperammonemia Is this a current diagnosis for this admission?: YesPlan: Ammonia level found to be 33. He has been started on lactulose will monitor - Time Time Spent with patient: 25-34 minutes Critical Time spent with patient: 15-24 minutes Medications reviewed and adjusted accordingly: Yes
[2017-06-04] MEDS: LANSOPRAZOLE 30 MG TAB.RAP.DR PO SCH (17:41)
[2017-06-04] MEDS: ATORVASTATIN CALCIUM 10 MG TABLET PO SCH (22:00)
[2017-06-05] MEDS: LACTULOSE SYRUP 20 GM/30 ML UDCUP PO SCH ×3 (03:08→11:11)
[2017-06-05] MEDS: LANSOPRAZOLE 30 MG TAB.RAP.DR PO SCH (05:14)
[2017-06-05 05:36] LABS: ANION GAP 6 (5-19); BLOOD UREA NITROGEN 33 mg/dL (7-20); CALCIUM 8.9 mg/dL (8.4-10.2); CARBON DIOXIDE 22 mmol/L (22-30); CHLORIDE 111 mmol/L (98-107); GLUCOSE 89 mg/dL (75-110); POTASSIUM 5.6 mmol/L (3.6-5.0); SODIUM 138.5 mmol/L (137-145)
[2017-06-05] MEDS ORDERED: INSULIN REG, HUMAN 100 UNIT/ML 3 ML VIAL (PYX) IV ONE (08:12)
[2017-06-05] MEDS ORDERED: DEXTROSE 50%-WATER 25 GM/50 ML DISP.SYRIN IV ONE (08:13)
[2017-06-05] MEDS: LEVOTHYROXINE SODIUM 0.025 MG TABLET PO SCH (08:47)
[2017-06-05] MEDS: LEVOTHYROXINE SODIUM 0.1 MG TABLET PO SCH (08:47)
[2017-06-05] MEDS: CYANOCOBALAMIN/FA/PYRIDOXINE TABLET PO SCH (10:08)
[2017-06-05] MEDS: RANOLAZINE 500 MG TAB.SR.12H PO SCH (10:08)
[2017-06-05] MEDS: FLUOXETINE HCL 20 MG CAPSULE PO SCH (10:08)
[2017-06-05] MEDS: ISOSORBIDE MONONITRATE 30 MG TAB.ER.24H PO SCH (10:08)
[2017-06-05 11:41] VITALS: BP 147/51
--- NOTE | 2017-06-05 15:56 | PDOC DISCHARGE SUMMARY ---
General - Admit/Disc Date/PCP Admission Date/Primary Care Provider: 06/03/17 13:22 KHLOE COLE MD Discharge Date: 06/05/17 - Discharge Diagnosis (1) Encephalopathy, hepatic Is this a current diagnosis for this admission?: YesSummary: Resolved with lactulose po. Initial ammonia 35 today down to 23. Will continue lactulose at home q6h until 2-3 stools per day. Patient with history of AMBROSIO (2) Cirrhosis of liver not due to alcohol Is this a current diagnosis for this admission?: YesSummary: Continue aldactone and lactulose. Follow up with Dr Barajas (3) Hyperammonemia Is this a current diagnosis for this admission?: YesSummary: Improved with lactulose will continue (4) Acute renal failure Is this a current diagnosis for this admission?: YesSummary: Resolving towards baseline. Will hold AGNIESZKA for now (5) Diabetes Is this a current diagnosis for this admission?: YesSummary: Continue metfomin not acidotic any longer (6) Pancytopenia Is this a current diagnosis for this admission?: Yes (7) Hyperkalemia Is this a current diagnosis for this admission?: YesSummary: He was treated for one potassium of 5.6, repeat was 5.0. discussed dietary modifications - Additional Information Resuscitation Status: Do Not Resuscitate Discharge Diet: Regular Discharge Activity: Activity As Tolerated, Balance Activity w/Rest Home Medications: Ferrous Sulfate [Iron] 325 mg PO TID 10/28/11 Fluoxetine HCl [Prozac 20 mg Capsule] 20 mg PO BID 10/28/11 Levothyroxine Sodium [Levoxyl] 125 mcg PO DAILY 10/28/11 Aspirin/Dipyridamole [Aggrenox 25 mg-200 mg Capsule] 1 cap PO BID 06/03/17 Isosorbide Mononitrate [Isosorbide Mononitrate ER] 30 mg PO DAILY 06/03/17 Metformin HCl [Glucophage] 500 mg PO DAILY 06/03/17 Pravastatin Sodium 40 mg PO QHS 06/03/17 Ranolazine [Ranexa] 1,000 mg PO BID 06/03/17 Spironolactone [Aldactone] 50 mg PO BID 06/03/17 Cyanocobalamin/FA/Pyridoxine [Folbee Tablet] 1 tab PO DAILY #30 tablet 06/05/17 Lactulose [Cephulac Syrup 20 gm/30 ml Udcup] 20 gm PO Q6HP PRN #480 ml 06/05/17 Pantoprazole Sodium [Protonix] 40 mg PO DAILY #30 tablet. 06/05/17 History of Present Illness Patient complains of: Altered mental status History of Present Illness: GABI GONG is a 76 year old male who has multiple comorbidities to include diabetes, a recent diagnosis of cirrhosis, pancytopenia, coronary artery disease and cerebrovascular disease. The patient was in his usual state of health until this morning. At approximately 03 100 the patient's woke up because she thought the light on in the bathroom. She got up to turn off the light. At approximately 730 this morning the patient's noted a bad smell. She went to the bathroom to check on her . He had defecated all over the floor. She said that the color of the stool was black and tarry. At that time her was very confused. He did not realize what had happened. He was lying in stool but when he was asked to take a shower he did not understand why. The then brought her to the emergency department because she was worried that he had a stroke. Apparently, the patient did have a stroke about 5-6 years ago and presented in a similar fashion. Patient was also having cold the buttoning his pants. Of note, the patient has been slightly ataxic. This started about 2 days ago. The also noted that her has had some shaking of his right forearm. Hospital Course Hospital Course: Patient was admitted to [facility] on telemetry. His mental status continued to improve after admission. Dr. Barajas saw the patient in consult for gastroenterology due to possible melena. The patient has been scoped by Dr. Barajas a year ago. His hemoglobin during this admission was actually higher than at that time. Guaiac stools were negative. Patient was known to have nonalcoholic cirrhosis his ammonia level was found to be elevated at 33. He was started on oral lactulose therapy. He was also noted to have acute kidney injury with a creatinine of 1.8. His baseline appears to be less than 1.5. Nephrotoxic medications were held. Mentation continued to improve. Did have issues with hyperkalemia with a potassium of 5.6 as well. This required treatment with insulin and D50. Last potassium today is 5.0. Patient has been counseled he and his have also been counseled on lactulose therapy and Dietary modifications. They will follow up with Dr Barajas as an outpatient. Physical Exam Vital Signs: Temp Pulse Resp BP Pulse Ox 98.4 F 65 18 147/51 H 100 06/05/17 14:27 06/05/17 14:27 06/05/17 14:27 06/05/17 14:27 06/05/17 14:27 Intake & Output 06/04/17 06/05/17 06/06/17 06:59 06:59 06:59 Intake Total 1575 1370 360 Output Total 1875 300 Balance -300 1070 360 Weight 93.7 kg 93 kg General appearance: PRESENT: no acute distress, well-developed, well-nourished Head exam: PRESENT: atraumatic, normocephalic Eye exam: PRESENT: conjunctiva pink, EOMI, PERRLA. ABSENT: scleral icterus Ear exam: PRESENT: normal external ear exam Mouth exam: PRESENT: moist, tongue midline Neck exam: ABSENT: carotid bruit, JVD, lymphadenopathy, thyromegaly Respiratory exam: PRESENT: clear to auscultation isabel. ABSENT: rales, rhonchi, wheezes Cardiovascular exam: PRESENT: RRR. ABSENT: diastolic murmur, rubs, systolic murmur Pulses: PRESENT: normal dorsalis pedis pul Vascular exam: PRESENT: normal capillary refill GI/Abdominal exam: PRESENT: normal bowel sounds, soft. ABSENT: distended, guarding, mass, organolmegaly, rebound, tenderness Rectal exam: PRESENT: deferred Extremities exam: PRESENT: full ROM. ABSENT: calf tenderness, clubbing, pedal edema Neurological exam: PRESENT: alert, awake, oriented to person, oriented to place , oriented to time, oriented to situation, CN II-XII grossly intact. ABSENT: motor sensory deficit Skin exam: PRESENT: dry, intact, warm. ABSENT: cyanosis, rash Results Laboratory Results: 06/03/17 17:18 06/05/17 12:05 06/05/17 06/05/17 06/05/17 05:04 05:04 12:05 Sodium 138.5 Potassium 5.6 H 5.0 Chloride 111 H Carbon Dioxide 22 Anion Gap 6 BUN 33 H Creatinine 1.60 H Est GFR ( Amer) 51 L Est GFR (Non-Af Amer) 42 L Glucose 89 Calcium 8.9 Ammonia 23.0 Impressions: Carotid Doppler Study 06/03/17 00:00 IMPRESSION: Right: 50- 69% stenosis proximal ICA, closer to 69%. No significant stenosis left ICA. Stenosis right vertebral artery. Head MRI 06/03/17 00:00 IMPRESSION: ATROPHY AND CHRONIC MICRO-VASCULAR ISCHEMIC CHANGES. OTHERWISE NORMAL MRI OF THE BRAIN WITHOUT INTRAVENOUS GADOLINIUM CONTRAST. Head CT 06/03/17 09:46 IMPRESSION: Chronic ischemic changes. Chest X-Ray 06/03/17 13:26 IMPRESSION: NO ACUTE RADIOGRAPHIC FINDING IN THE CHEST. Qualifiers PATEINT BEING DISCHARGED WITH ANY OF THE FOLLOWING DIAGNOSIS?: No Plan Discharge Plan: Home with
== END 2017-06-05 15:09 | disposition home or self-care (01) | DRG 442 ==
LOC: ER 09:38 → UNDOADMIN 12:39 → EH 12:39 → 3W 14:27
PROVIDERS: ADMIT Internal Medicine Pulmonary Disease; ATTEND Internal Medicine Pulmonary Disease
DX: K72.90 Hepatic failure, unspecified without coma (principal); D61.818 Other pancytopenia; N17.9 Acute kidney failure, unspecified; E72.20 Disorder of urea cycle metabolism, unspecified; K92.2 Gastrointestinal hemorrhage, unspecified; K74.60 Unspecified cirrhosis of liver; Z66 Do not resuscitate; E11.22 Type 2 diabetes mellitus with diabetic chronic kidney disease; I12.9 Hypertensive chronic kidney disease with stage 1 through stage 4 chronic kidney disease, or unspecified chronic kidney disease; N18.9 Chronic kidney disease, unspecified; D63.1 Anemia in chronic kidney disease; E78.5 Hyperlipidemia, unspecified; E03.9 Hypothyroidism, unspecified; E87.5 Hyperkalemia; R41.0 Disorientation, unspecified; R16.1 Splenomegaly, not elsewhere classified; I25.2 Old myocardial infarction; Z79.84 Long term (current) use of oral hypoglycemic drugs; Z79.82 Long term (current) use of aspirin; Z79.51 Long term (current) use of inhaled steroids; Z79.899 Other long term (current) drug therapy; Z95.1 Presence of aortocoronary bypass graft; Z86.73 Personal history of transient ischemic attack (TIA), and cerebral infarction without residual deficits; Z98.84 Bariatric surgery status
CPT/HCPCS: 36415; 70450; 70551; 71010; 80048; 80053; 81001; 82140; 82272; 82550; 82553; 82803; 82962; 83605; 84132; 84484; 85025; 85027; 85610; 85730; 86850; 86900; 86901; 93005; 93010; 93880; 96361; 96374; 96375; 99285; G8978-GP; G8979-GP; G8987-GO; G8988-GO; J0610; J1815; J1940; J3490; J7030; S0164

== ENCOUNTER → 2017-07-21 | Outpatient (CLI) | payer MEDICARE, OTHER ==
--- NOTE | 2017-07-21 11:23 | RADIOLOGY REPORT (SQ) ---
EXAM DESCRIPTION: U/S ABDOMEN COMPLETE W/O DOP COMPLETED DATE/TIME: 07/21/2017 9:43 am REASON FOR STUDY: CIRRHOSIS, NON ALCOHOL/SPLENOMEGALY, NOT ELSEHWERE CLASSIFIED K74.69 OTHER CIRRHO SIS OF LIVER R16.1 SPLENOMEGALY, NOT ELSEWHERE CLASSIFIED COMPARISON: MRI abdomen 10/27/2016 Abdominal ultrasound 12/21/2008 CT abdomen pelvis 12/21/2008 TECHNIQUE: Dynamic and static grayscale images acquired of the abdomen and recorded on PACS. Additio nal selected color Doppler and spectral images recorded. LIMITATIONS: Upper abdominal bowel gas FINDINGS: PANCREAS: Midline pancreas unremarkable LIVER: Liver is small, with a nodular surface and diffuse increased echogenicity from cirrhosis. Thi s is similar compared to studies dating back to 2008. LIVER VASCULATURE: Antegrade flow. There is some echogenic material along the wall of the portal vei n near the portal vein -splenic vein confluence worrisome for partial thrombosis of the portal vein. GALLBLADDER: Post cholecystectomy ULTRASOUND-DETECTED GRAY'S SIGN: Not applicable INTRAHEPATIC DUCTS AND COMMON DUCT: CBD and intrahepatic ducts normal caliber. No filling defects. INFERIOR VENA CAVA: Normal flow. AORTA: No aneurysm. RIGHT KIDNEY: Normal size, 10.3 cm in length Normal echogenicity. No solid or suspicious masses. No hydronephrosis. No calcifications. LEFT KIDNEY: Normal size, 12 cm in length Normal echogenicity. No solid or suspicious masses. No hydronephrosis. No calcifications. SPLEEN: There is splenomegaly, spleen is 20 cm in craniocaudad length which is similar compared to MR I 10/27/2016 PERITONEAL AND PLEURAL SPACES: Moderate ascites is now present. This is increased compared to 2015 OTHER: No other significant finding. IMPRESSION: Cirrhosis with portal hypertension and splenomegaly Increasing intra-abdominal and pelvic ascites Echogenic material along the wall of the main portal vein near the confluence of the superior mesente guadalupe vein and portal vein. This is worrisome for partial thrombosis. TECHNICAL DOCUMENTATION: JOB ID: [id number]- All Rights Reserved
== END ==
LOC: RAD 08:45
PROVIDERS: ATTEND Internal Medicine Gastroenterology
DX: K74.69 Other cirrhosis of liver (principal); I85.00 Esophageal varices without bleeding; R16.1 Splenomegaly, not elsewhere classified
CPT/HCPCS: 76700

== ENCOUNTER → 2017-07-22 | Outpatient (CLI) | payer MEDICARE, OTHER ==
[2017-07-22 11:16] LABS: PROTHROMBIN TIME 16.8 SEC (11.4-15.4)
== END ==
LOC: OD 10:17
PROVIDERS: ATTEND Internal Medicine Gastroenterology
DX: K74.69 Other cirrhosis of liver (principal)
CPT/HCPCS: 36415; 85610

== ENCOUNTER → 2017-08-05 | Outpatient (CLI) | payer MEDICARE, OTHER ==
[2017-08-05 10:40] LABS: ANION GAP 9 (5-19); BLOOD UREA NITROGEN 35 mg/dL (7-20); CALCIUM 8.3 mg/dL (8.4-10.2); CARBON DIOXIDE 25 mmol/L (22-30); CHLORIDE 106 mmol/L (98-107); CREATININE RESULT 1.51 mg/dL (0.52-1.25); GLUCOSE 134 mg/dL (75-110); POTASSIUM 3.6 mmol/L (3.6-5.0); SODIUM 139.6 mmol/L (137-145)
== END ==
LOC: OD 09:02
PROVIDERS: ATTEND Internal Medicine Cardiovascular Disease
DX: I10 Essential (primary) hypertension (principal)
CPT/HCPCS: 36415; 80048

== ENCOUNTER → 2017-08-16 | Outpatient (CLI) | payer MEDICARE, OTHER ==
[2017-08-16 10:46] LABS: ABSOLUTE EOSINOPHILS # (AUTO) 0.2 10^3/uL (0.0-0.6); ABSOLUTE LYMPHOCYTES (AUTO) 0.4 10^3/uL (0.5-4.7); ABSOLUTE MONOCYTES (AUTO) 0.3 10^3/uL (0.1-1.4); ABSOLUTE NEUT (AUTO) 3.1 10^3/uL (1.7-8.2); BASOPHILS % (AUTO) 0.5 % (0-2); EOSINOPHILS % (AUTO) 4.6 % (0-6); HEMATOCRIT 29.1 % (37.9-51.0); HEMOGLOBIN 10.2 g/dL (13.5-17.0); HGB HCT DIFFERENCE 1.5; LYMPHOCYTES % (AUTO) 9.9 % (13-45); MEAN CORPUSCULAR HGB CONC 35.2 g/dL (32.0-36.0); MEAN CORPUSCULAR VOLUME 97 fl (80-97); MONOCYTES % (AUTO) 6.4 % (3-13); RED CELL DISTRIBUTION WIDTH 15.1 % (11.5-14.0); SEGMENTED NEUTROPHILS % (AUTO) 78.6 % (42-78)
[2017-08-16 10:54] LABS: APPEARANCE,URINE CLEAR; BILIRUBIN,URINE NEGATIVE (NEGATIVE); GLUCOSE, URINE NEGATIVE (NEGATIVE); KETONES,URINE NEGATIVE (NEGATIVE); LEUKOCYTE ESTERASE,URINE NEGATIVE (NEGATIVE); NITRITE,URINE NEGATIVE (NEGATIVE); PROTEIN,URINE 30 mg/dL (NEGATIVE); URINE SPECIFIC GRAVITY 1.017
[2017-08-16 11:15] LABS: ALANINE AMINOTRANSFERASE 31 U/L (21-72); ALKALINE PHOSPHATASE 137 U/L (38-126); ANION GAP 5 (5-19); ASPARTATE AMINO TRANSFERASE 28 U/L (17-59); BILIRUBIN,DIRECT 0.5 mg/dL (0.0-0.4); BILIRUBIN,TOTAL 1.1 mg/dL (0.2-1.3); BLOOD UREA NITROGEN 29 mg/dL (7-20); CALCIUM 8.9 mg/dL (8.4-10.2); CARBON DIOXIDE 27 mmol/L (22-30); CHLORIDE 108 mmol/L (98-107); CREATININE RESULT 1.71 mg/dL (0.52-1.25); GLUCOSE 83 mg/dL (75-110); MAGNESIUM 1.8 mg/dL (1.6-2.3); PHOSPHORUS 2.6 mg/dL (2.5-4.5); POTASSIUM 4.6 mmol/L (3.6-5.0); SODIUM 140.1 mmol/L (137-145); TOTAL PROTEIN 6.1 g/dL (6.3-8.2)
== END ==
LOC: OD 09:12
PROVIDERS: ATTEND Internal Medicine Nephrology
DX: E11.22 Type 2 diabetes mellitus with diabetic chronic kidney disease (principal); N18.3 Chronic kidney disease, stage 3 (moderate); R60.9 Edema, unspecified; E87.5 Hyperkalemia
CPT/HCPCS: 36415; 80053; 81001; 83735; 84100; 85025

== ENCOUNTER → 2017-08-20 | Outpatient (CLI) | payer MEDICARE, OTHER ==
[2017-08-20 09:12] LABS: ANION GAP 7 (5-19); BLOOD UREA NITROGEN 27 mg/dL (7-20); CALCIUM 8.9 mg/dL (8.4-10.2); CARBON DIOXIDE 27 mmol/L (22-30); CHLORIDE 108 mmol/L (98-107); GLUCOSE 96 mg/dL (75-110); POTASSIUM 4.1 mmol/L (3.6-5.0); SODIUM 142.3 mmol/L (137-145)
== END ==
LOC: OD 08:09
PROVIDERS: ATTEND Physician Assistant Surgical
DX: K74.69 Other cirrhosis of liver (principal)
CPT/HCPCS: 36415; 80048

== ENCOUNTER → 2017-09-17 | Outpatient (CLI) | payer MEDICARE, OTHER ==
[2017-09-17 11:59] LABS: HEMATOCRIT 28.9 % (37.9-51.0); HEMOGLOBIN 10.1 g/dL (13.5-17.0); HGB HCT DIFFERENCE 1.4; MEAN CORPUSCULAR HEMOGLOBIN 32.9 pg (27.0-33.4); MEAN CORPUSCULAR VOLUME 94 fl (80-97); RED BLOOD COUNT 3.08 10^6/uL (4.35-5.55); RED CELL DISTRIBUTION WIDTH 14.4 % (11.5-14.0); WHITE BLOOD COUNT 2.5 10^3/uL (4.0-10.5)
[2017-09-17 12:16] LABS: ALANINE AMINOTRANSFERASE 27 U/L (21-72); ALBUMIN 2.9 g/dL (3.5-5.0); ALKALINE PHOSPHATASE 106 U/L (38-126); ANION GAP 8 (5-19); ASPARTATE AMINO TRANSFERASE 24 U/L (17-59); BILIRUBIN,DIRECT 0.4 mg/dL (0.0-0.4); BLOOD UREA NITROGEN 28 mg/dL (7-20); CALCIUM 8.6 mg/dL (8.4-10.2); CARBON DIOXIDE 27 mmol/L (22-30); CHLORIDE 107 mmol/L (98-107); CREATININE RESULT 1.66 mg/dL (0.52-1.25); GLUCOSE 183 mg/dL (75-110); POTASSIUM 4.4 mmol/L (3.6-5.0); SODIUM 141.5 mmol/L (137-145); TOTAL PROTEIN 5.9 g/dL (6.3-8.2)
== END ==
LOC: OD 10:22
PROVIDERS: ATTEND Internal Medicine Nephrology
DX: E11.22 Type 2 diabetes mellitus with diabetic chronic kidney disease (principal); N18.3 Chronic kidney disease, stage 3 (moderate); R80.9 Proteinuria, unspecified; D64.9 Anemia, unspecified
CPT/HCPCS: 36415; 80053; 85027

== ENCOUNTER → 2017-11-05 | Outpatient (CLI) | payer MEDICARE, OTHER ==
[2017-11-05 08:28] LABS: ABSOLUTE EOSINOPHILS # (AUTO) 0.2 10^3/uL (0.0-0.6); ABSOLUTE LYMPHOCYTES (AUTO) 0.5 10^3/uL (0.5-4.7); ABSOLUTE MONOCYTES (AUTO) 0.3 10^3/uL (0.1-1.4); ABSOLUTE NEUT (AUTO) 2.3 10^3/uL (1.7-8.2); BASOPHILS % (AUTO) 0.9 % (0-2); EOSINOPHILS % (AUTO) 6.8 % (0-6); HEMATOCRIT 28.1 % (37.9-51.0); HEMOGLOBIN 9.6 g/dL (13.5-17.0); HGB HCT DIFFERENCE 0.7; LYMPHOCYTES % (AUTO) 14.5 % (13-45); MEAN CORPUSCULAR HEMOGLOBIN 32.6 pg (27.0-33.4); MEAN CORPUSCULAR HGB CONC 34.2 g/dL (32.0-36.0); MEAN CORPUSCULAR VOLUME 95 fl (80-97); MONOCYTES % (AUTO) 8.2 % (3-13); RED BLOOD COUNT 2.95 10^6/uL (4.35-5.55); RED CELL DISTRIBUTION WIDTH 16.1 % (11.5-14.0); SEGMENTED NEUTROPHILS % (AUTO) 69.6 % (42-78); WHITE BLOOD COUNT 3.3 10^3/uL (4.0-10.5)
[2017-11-05 08:49] LABS: ALANINE AMINOTRANSFERASE 26 U/L (21-72); ALKALINE PHOSPHATASE 100 U/L (38-126); ANION GAP 6 (5-19); ASPARTATE AMINO TRANSFERASE 23 U/L (17-59); BILIRUBIN,DIRECT 0.3 mg/dL (0.0-0.4); BILIRUBIN,TOTAL 1.1 mg/dL (0.2-1.3); BLOOD UREA NITROGEN 28 mg/dL (7-20); CALCIUM 8.8 mg/dL (8.4-10.2); CARBON DIOXIDE 27 mmol/L (22-30); CHLORIDE 109 mmol/L (98-107); CREATININE RESULT 1.66 mg/dL (0.52-1.25); GLUCOSE 87 mg/dL (75-110); MAGNESIUM 1.9 mg/dL (1.6-2.3); PHOSPHORUS 3.5 mg/dL (2.5-4.5); POTASSIUM 4.2 mmol/L (3.6-5.0); SODIUM 142.4 mmol/L (137-145); TOTAL PROTEIN 5.9 g/dL (6.3-8.2)
== END ==
LOC: OD 07:45
PROVIDERS: ATTEND Internal Medicine Nephrology
DX: N18.3 Chronic kidney disease, stage 3 (moderate) (principal); E11.9 Type 2 diabetes mellitus without complications; D64.9 Anemia, unspecified; E87.5 Hyperkalemia
CPT/HCPCS: 36415; 80053; 83735; 84100; 85025

== ENCOUNTER 2017-12-15 12:36 | Inpatient (IN) | payer MEDICARE, OTHER ==
--- NOTE | 2017-12-15 14:01 | ER Document Report ---
ED Medical Screen (RME) - General Chief Complaint: Altered Mental Status Stated Complaint: CONFUSION Time Seen by Provider: 12/15/17 13:50 Notes: This 76-year-old male patient with past history of probably mild hepatic encephalopathy. Yesterday was quite lethargic and confused. His symptoms did suggest elevated ammonia levels. Today he is wide awake, confused, and seems to be borderline manic psychotic today. No history given of previous bipolar or psychotic disorders. No recent injuries. Reports that his mental status has been going downhill for a while suggesting he is developing dementia, however his presentation today is a sudden dramatic change in mental status from his baseline. I have greeted and performed a rapid initial assessment of this patient. A comprehensive ED assessment and evaluation of the patient, analysis of test results and completion of the medical decision making process will be conducted by additional ED providers. TRAVEL OUTSIDE OF THE [place] IN LAST 30 DAYS: No - Related Data Allergies/Adverse Reactions: No Known Allergies Allergy (Verified 12/15/17 13:27) Past Medical History - Social History Chew tobacco use (# tins/day): No Frequency of alcohol use: None Drug Abuse: None - Past Medical History Cardiac Medical History: Reports: Hx Coronary Artery Disease, Hx Heart Attack, Hx Hypercholesterolemia, Hx Hypertension Pulmonary Medical History: Denies: Hx Tuberculosis Endocrine Medical History: Reports: Hx Diabetes Mellitus Type 2, Hx Hypothyroidism Renal/ Medical History: Denies: Hx Peritoneal Dialysis GI Medical History: Reports: Hx Cirrhosis Psychiatric Medical History: Reports: Hx Depression Past Surgical History: Reports: Hx Cardiac Catheterization, Hx Cardiac Surgery, Hx Cholecystectomy, Hx Gastric Bypass Surgery. Denies: Hx Pacemaker - Immunizations Hx Diphtheria, Pertussis, Tetanus Vaccination: Yes Physical Exam - Vital signs Vitals: Temp Pulse Resp BP Pulse Ox 98.2 F 65 17 118/60 100 12/15/17 12:41 12/15/17 12:41 12/15/17 12:41 12/15/17 12:41 12/15/17 12:41 Course - Vital Signs Vital signs: Temp Pulse Resp BP Pulse Ox 98.2 F 66 17 118/60 100 12/15/17 12:41 12/15/17 13:43 12/15/17 13:43 12/15/17 13:43 12/15/17 13:43
[2017-12-15 14:45] LABS: APPEARANCE,URINE CLEAR; BILIRUBIN,URINE NEGATIVE (NEGATIVE); COLOR,URINE YELLOW; GLUCOSE, URINE NEGATIVE (NEGATIVE); KETONES,URINE NEGATIVE (NEGATIVE); LEUKOCYTE ESTERASE,URINE NEGATIVE (NEGATIVE); NITRITE,URINE NEGATIVE (NEGATIVE); PROTEIN,URINE NEGATIVE (NEGATIVE); URINE SPECIFIC GRAVITY 1.018; UROBILINOGEN,URINE NEGATIVE mg/dL (<2.0)
[2017-12-15 14:48] LABS: ABSOLUTE EOSINOPHILS # (AUTO) 0.2 10^3/uL (0.0-0.6); ABSOLUTE LYMPHOCYTES (AUTO) 0.5 10^3/uL (0.5-4.7); ABSOLUTE MONOCYTES (AUTO) 0.3 10^3/uL (0.1-1.4); ABSOLUTE NEUT (AUTO) 3.4 10^3/uL (1.7-8.2); BASOPHILS % (AUTO) 0.9 % (0-2); EOSINOPHILS % (AUTO) 3.7 % (0-6); HEMATOCRIT 22.8 % (37.9-51.0); LYMPHOCYTES % (AUTO) 11.5 % (13-45); MEAN CORPUSCULAR HEMOGLOBIN 33.8 pg (27.0-33.4); MEAN CORPUSCULAR HGB CONC 33.8 g/dL (32.0-36.0); MEAN CORPUSCULAR VOLUME 100 fl (80-97); MONOCYTES % (AUTO) 7.3 % (3-13); RED BLOOD COUNT 2.28 10^6/uL (4.35-5.55); RED CELL DISTRIBUTION WIDTH 16.9 % (11.5-14.0); SEGMENTED NEUTROPHILS % (AUTO) 76.6 % (42-78); TOTAL CELLS COUNTED % (AUTO) 100 %; WHITE BLOOD COUNT 4.5 10^3/uL (4.0-10.5)
--- NOTE | 2017-12-15 14:54 | RADIOLOGY REPORT (SQ) ---
EXAM DESCRIPTION: CT HEAD WITHOUT COMPLETED DATE/TIME: 12/15/2017 2:42 pm REASON FOR STUDY: acute confusion COMPARISON: CT brain 12/15/2011, 06/03/2017 MRI brain 06/03/2017 TECHNIQUE: Axial images acquired through the brain without intravenous contrast. Images reviewed wi th bone, brain and subdural windows. Images stored on PACS. All CT scanners at this facility use dose modulation, iterative reconstruction, and/or weight based d osing when appropriate to reduce radiation dose to as low as reasonably achievable (ALARA). [facility]: Dose Right [facility]: CareDose [facility]: Dose Right [facility]: Teradose 4D [facility]: [employer] RADIATION DOSE: CT Rad equipment meets quality standard of care and radiation dose reduction techniq ues were employed. CTDIvol: 64.6 mGy. DLP: 1163 mGy-cm. mGy. LIMITATIONS: None. FINDINGS: VENTRICLES: Normal size and contour. CEREBRUM: No CT evidence of acute large territory ischemic change, acute intracranial hemorrhage, mas s effect, or midline shift. Old watershed ischemic change in the left anterior frontal cortex and sub cortical white matter, and left frontoparietal cortex and subcortical white matter. CEREBELLUM: No masses. No hemorrhage. No alteration of density. No evidence for acute infarction. EXTRAAXIAL SPACES: No fluid collections. No masses. ORBITS AND GLOBE: No intra- or extraconal masses. Normal contour of globe without masses. CALVARIUM: No fracture. PARANASAL SINUSES: No fluid or mucosal thickening. SOFT TISSUES: No mass or hematoma. OTHER: No other significant finding. IMPRESSION: No acute findings. 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 COMMENT: Quality ID # [id number]: Final reports with documentation of one or more dose reduction techniques (e.g., Automated exposure control, adjustment of the mA and/or kV according to patient size, use of iterative reconstruction technique) TECHNICAL DOCUMENTATION: JOB ID: [id number] [employer]- All Rights Reserved
[2017-12-15 15:04] LABS: URINE AMPHETAMINES SCREEN NEGATIVE; URINE BARBITURATES SCREEN NEGATIVE; URINE BENZODIAZEPINES SCREEN NEGATIVE; URINE COCAINE SCREEN NEGATIVE; URINE MARIJUANA (THC) SCREEN NEGATIVE; URINE METHADONE SCREEN NEGATIVE; URINE PHENCYCLIDINE SCREEN NEGATIVE
[2017-12-15 15:07] LABS: HEMOGLOBIN 7.7 g/dL (13.5-17.0)
[2017-12-15 15:08] LABS: PLATELET COUNT 68 10^3/uL (150-450)
[2017-12-15 15:11] LABS: ALANINE AMINOTRANSFERASE 26 U/L (21-72); ALBUMIN 2.9 g/dL (3.5-5.0); ALKALINE PHOSPHATASE 113 U/L (38-126); ANION GAP 8 (5-19); ASPARTATE AMINO TRANSFERASE 19 U/L (17-59); BILIRUBIN,DIRECT 0.3 mg/dL (0.0-0.4); BILIRUBIN,TOTAL 0.6 mg/dL (0.2-1.3); BLOOD UREA NITROGEN 34 mg/dL (7-20); CARBON DIOXIDE 23 mmol/L (22-30); CHLORIDE 112 mmol/L (98-107); CREATINE KINASE 71 U/L (55-170); GLUCOSE 164 mg/dL (75-110); MAGNESIUM 2.2 mg/dL (1.6-2.3); POTASSIUM 5.5 mmol/L (3.6-5.0); SODIUM 143.2 mmol/L (137-145); TOTAL PROTEIN 6.2 g/dL (6.3-8.2)
[2017-12-15 15:21] LABS: CREATINE KINASE MB 2.31 ng/mL (<4.55)
[2017-12-15 15:23] LABS: TROPONIN I 0.575 ng/mL
[2017-12-15 16:18] LABS: INTERNATIONAL RATION (INR) 1.31; PROTHROMBIN TIME 17.1 SEC (11.4-15.4)
--- NOTE | 2017-12-15 17:28 | ER Document Report ---
ED Dizziness/Weakness - General Chief Complaint: Altered Mental Status Stated Complaint: CONFUSION Time Seen by Provider: 12/15/17 13:50 Notes: 76-year-old male. History of renal failure as well as liver failure. Not on dialysis. Worsening confusion over the last several days. Seems to be a little bit better today. In the past patient has had elevated ammonia levels as well as elevated potassium. Denies any trauma. states that he does have some dementia. Has had this happen on several occasions. Was worse last week. Better today. Waxes and wanes. Nothing seems to make it better or worse. TRAVEL OUTSIDE OF THE [place] IN LAST 30 DAYS: No - HPI Patient complains to provider of: Altered mental status, Dizziness Onset: Last week Onset/Duration: Gradual Quality of pain: No pain Severity: Moderate Associated symptoms: Confused - Related Data Allergies/Adverse Reactions: No Known Allergies Allergy (Verified 12/15/17 13:27) Past Medical History - General Information source: Patient, Relative - Social History Smoking Status: Former Smoker Chew tobacco use (# tins/day): No Frequency of alcohol use: None Drug Abuse: None Lives with: Spouse/Significant other Family History: Reviewed & Not Pertinent Patient has suicidal ideation: No Patient has homicidal ideation: No - Past Medical History Cardiac Medical History: Reports: Hx Coronary Artery Disease, Hx Heart Attack, Hx Hypercholesterolemia, Hx Hypertension Pulmonary Medical History: Denies: Hx Tuberculosis Endocrine Medical History: Reports: Hx Diabetes Mellitus Type 2, Hx Hypothyroidism Renal/ Medical History: Denies: Hx Peritoneal Dialysis GI Medical History: Reports: Hx Cirrhosis Psychiatric Medical History: Reports: Hx Depression Past Surgical History: Reports: Hx Cardiac Catheterization, Hx Cardiac Surgery, Hx Cholecystectomy, Hx Gastric Bypass Surgery. Denies: Hx Pacemaker - Immunizations Hx Diphtheria, Pertussis, Tetanus Vaccination: Yes Review of Systems - Review of Systems Constitutional: Other - confused EENT: No symptoms reported Cardiovascular: No symptoms reported Respiratory: No symptoms reported Gastrointestinal: No symptoms reported Genitourinary: No symptoms reported Male Genitourinary: No symptoms reported Musculoskeletal: No symptoms reported Skin: No symptoms reported Hematologic/Lymphatic: No symptoms reported Neurological/Psychological: Confusion, Dementia Physical Exam - Vital signs Vitals: Temp Pulse Resp BP Pulse Ox 98.2 F 65 17 118/60 100 12/15/17 12:41 12/15/17 12:41 12/15/17 12:41 12/15/17 12:41 12/15/17 12:41 Interpretation: Normal - General General appearance: Appears well, Alert - HEENT Head: Normocephalic, Atraumatic Eyes: Normal Pupils: PERRL - Respiratory Respiratory status: No respiratory distress Chest status: Nontender Breath sounds: Normal Chest palpation: Normal - Cardiovascular Rhythm: Regular Heart sounds: Normal auscultation Murmur: No - Abdominal Inspection: Normal Distension: No distension Bowel sounds: Normal Tenderness: Nontender Organomegaly: No organomegaly - Back Back: Normal, Nontender - Extremities General upper extremity: Normal inspection, Nontender, Normal color, Normal ROM , Normal temperature General lower extremity: Normal inspection, Nontender, Normal color, Normal ROM , Normal temperature, Normal weight bearing. No: Ariadna's sign - Neurological Neuro grossly intact: Yes Cognition: Normal Orientation: Disoriented to place, Disoriented to events [place] Coma Scale Eye Opening: Spontaneous [place] Coma Scale Verbal: Oriented [place] Coma Scale Motor: Obeys Commands [place] Coma Scale Total: 15 Speech: Normal Motor strength normal: LUE, RUE, LLE, RLE Sensory: Normal Notes: No obvious asterixis - Psychological Associated symptoms: Normal affect, Normal mood - Skin Skin Temperature: Warm Skin Moisture: Dry Skin Color: Normal Course - Re-evaluation Re-evalutation: 12/15/17 17:26 Uncertain etiology of patient's confusion more than likely history of ammonia will be elevated. Will recheck that. 12/15/17 19:30 Patient with occult blood positive. Lower H&H. Likely GI bleed. Ammonia level still pending. Will consult with GI as well as hospitalist for admission at this time. Patient is stable. Vital signs stable. Has been type and cross peer 12/15/17 19:54 [place] with patient's GI doctor. Dr. Barajas will admit at this time. Consulted hospitalist. Patient stable at this time . 12/15/17 19:54 - Vital Signs Vital signs: Temp Pulse Resp BP Pulse Ox 98.2 F 66 17 116/40 L 100 12/15/17 12:41 12/15/17 13:43 12/15/17 18:01 12/15/17 18:01 12/15/17 13:43 - Laboratory Result Diagrams: 12/15/17 14:10 12/15/17 14:10 Laboratory results interpreted by me: 12/15/17 12/15/17 12/15/17 14:10 14:10 14:10 RBC 2.28 L Hgb 7.7 L Hct 22.8 L MCV 100 H MCH 33.8 H RDW 16.9 H Plt Count 68 L Lymphocytes % 11.5 L PT Potassium 5.5 H Chloride 112 H BUN 34 H Creatinine 2.12 H Est GFR ( Amer) 37 L Est GFR (Non-Af Amer) 30 L Glucose 164 H Total Protein 6.2 L Albumin 2.9 L TSH 5.15 H 12/15/17 14:10 RBC Hgb Hct MCV MCH RDW Plt Count Lymphocytes % PT 17.1 H Potassium Chloride BUN Creatinine Est GFR ( Amer) Est GFR (Non-Af Amer) Glucose Total Protein Albumin TSH Critical Care Note - Critical Care Note Total time excluding time spent on procedures (mins): 45 Comments: Gastrointestinal bleeding, consultation with medical specialists. Discharge - Discharge Clinical Impression: Intestinal bleeding, Confusion Disposition: ADMITTED INPATIENT Admitting Provider: Hospitalist - Dr. Jay Unit Admitted: IMCU Referrals: KHLOE COLE MD [Primary Care Provider] - Follow up as needed
[2017-12-15] MEDS ORDERED: NORMAL SALINE 1000 ML 1,000 ML IV ONE ×2 (19:30→20:00)
[2017-12-15] MEDS ORDERED: IPRATROPIUM/ALBUTEROL 0.5-2.5 MG/3 ML AMPUL NEB PRN (19:54)
[2017-12-15] MEDS ORDERED: NORMAL SALINE 250 ML IV PRN ×2 (19:54)
[2017-12-15] MEDS ORDERED: PANTOPRAZOLE SODIUM 40 MG VIAL IV PRN (20:01)
[2017-12-15] MEDS ORDERED: PANTOPRAZOLE SODIUM 40 MG VIAL IV ONE (20:01)
[2017-12-15 20:50] LABS: ABSOLUTE RETICS # 0.082 10^6/uL (0.028-0.122)
[2017-12-15] MEDS ORDERED: LACTULOSE SYRUP 20 GM/30 ML UDCUP PO ONE (21:00)
[2017-12-15] MEDS ORDERED: PHYTONADIONE INJ 10 MG/1 ML AMPULE SUBCUT ONE (21:00)
[2017-12-15] MEDS ORDERED: SODIUM POLYSTYRENE SULFONATE 15 GM/60 ML PO ONE (21:00)
[2017-12-15 21:01] LABS: IRON(TIBC) 10.2 ug/dL (49-181)
[2017-12-15] MEDS ORDERED: PANTOPRAZOLE SODIUM 80 MG in NORMAL SALINE 100 ML IV ONE (21:30)
[2017-12-15] MEDS ORDERED: DEXTROSE 50%-WATER 25 GM/50 ML DISP.SYRIN IV PRN ×2 (22:00)
[2017-12-15] MEDS ORDERED: GLUCAGON,HUMAN RECOMB 1 MG INJ SUBCUT PRN (22:00)
[2017-12-15] MEDS ORDERED: DEXTROSE 40% GEL 15 GM TUBE PO PRN ×2 (22:00)
[2017-12-15] MEDS: LACTULOSE SYRUP 20 GM/30 ML UDCUP PO SCH (22:50)
[2017-12-15] MEDS: HEPARIN SOD (PORCINE) 5,000 UNIT/ML 1 ML SYRINGE SUBCUT SCH (22:51)
--- NOTE | 2017-12-15 23:26 | EKG REPORT ---
SEVERITY:- ABNORMAL ECG - SINUS OR ECTOPIC ATRIAL RHYTHM FIRST DEGREE AV BLOCK NONSPECIFIC T ABNORMALITIES, LATERAL LEADS BORDERLINE PROLONGED QT INTERVAL : Confirmed by: Ervin Davis 15-Dec-2017 23:25:48
--- NOTE | 2017-12-16 01:18 | PDOC H&P ---
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 Patient presents with 48 hours of altered mental status brought to the emergency room for evaluation he is awake, alert oriented 1 and socially appropriate with unclear baseline as no historian is available. In the emergency room is found to have hyperkalemia, anemia, Hemoccult stool positive, normal ammonia level but pinpoint pupils. He is referred to the hospitalist for admission. Past Medical History Cardiac Medical History: Reports: Coronary Artery Disease, Myocardial Infarction , Hyperlipidema, Hypertension Pulmonary Medical History: Denies: Tuberculosis Endocrine Medical History: Reports: Diabetes Mellitus Type 2, Hypothyroidism Renal/ Medical History: Reports: Chronic Kidney Disease GI Medical History: Reports: Cirrhosis Psychiatric Medical History: Reports: Dementia, Depression Hematology: Reports: Anemia Past Surgical History Past Surgical History: Reports: Cardiac Catheterization, Cholecystectomy, Gastric Bypass Surgery Denies: Pacemaker Social History Information Source: [facility] Records Lives with: Spouse/Significant other Smoking Status: Former Smoker Frequency of Alcohol Use: None Hx Recreational Drug Use: No Hx Prescription Drug Abuse: No - Advance Directive Resuscitation Status: Do Not Resuscitate Family History Family History: DM, Hypertension Parental Family History Reviewed: Yes Children Family History Reviewed: Yes Sibling(s) Family History Reviewed.: Yes Medication/Allergy Home Medications: Cyanocobalamin (Vitamin B-12) [Vitamin B-12 1000 Mcg Tablet] 1,000 mcg PO DAILY 12/15/17 Epoetin Chris [Procrit] 2,000 unit IJ [id number] 12/15/17 Ferrous Sulfate [Iron] 325 mg PO TID 12/15/17 Fluoxetine HCl [Prozac 20 mg Capsule] 20 mg PO BID 12/15/17 Isosorbide Mononitrate [Isosorbide Mononitrate ER] 60 mg PO DAILY 12/15/17 Lactulose [Cephulac 20 gm/30 ml Syrup UD Cup] 20 gm PO DAILY 12/15/17 Levothyroxine Sodium [Synthroid] 137 mcg PO DAILY 01/17/18 Spironolactone [Aldactone 25 mg Tablet] 75 mg PO DAILY 12/15/17 Allergies/Adverse Reactions: No Known Allergies Allergy (Verified 12/15/17 13:27) Review of Systems ROS unobtainable: Due to mental status Constitutional: ABSENT: chills, fever(s), headache(s), weight gain, weight loss Eyes: ABSENT: visual disturbances Ears: ABSENT: hearing changes Cardiovascular: ABSENT: chest pain, dyspnea on exertion, edema, orthropnea, palpitations Respiratory: ABSENT: cough, hemoptysis Gastrointestinal: ABSENT: abdominal pain, constipation, diarrhea, hematemesis, hematochezia, nausea, vomiting Genitourinary: ABSENT: dysuria, hematuria Musculoskeletal: ABSENT: joint swelling Integumentary: ABSENT: rash, wounds Neurological: ABSENT: abnormal gait, abnormal speech, confusion, dizziness, focal weakness, syncope Psychiatric: ABSENT: anxiety, depression, homidical ideation, suicidal ideation Endocrine: ABSENT: cold intolerance, heat intolerance, polydipsia, polyuria Hematologic/Lymphatic: ABSENT: easy bleeding, easy bruising Physical Exam Vital Signs: Temp Pulse Resp BP Pulse Ox 98.4 F 71 15 123/44 L 100 12/16/17 00:35 12/16/17 00:35 12/16/17 00:35 12/16/17 00:35 12/16/17 00:35 Intake & Output 12/14/17 12/15/17 12/16/17 11:59 11:59 11:59 Intake Total 0 Balance 0 General appearance: PRESENT: no acute distress, well-developed, well-nourished Head exam: PRESENT: atraumatic, normocephalic Eye exam: PRESENT: conjunctiva pink, EOMI, PERRLA. ABSENT: scleral icterus Ear exam: PRESENT: normal external ear exam Mouth exam: PRESENT: moist, tongue midline Neck exam: ABSENT: carotid bruit, JVD, lymphadenopathy, thyromegaly Respiratory exam: PRESENT: clear to auscultation isabel. ABSENT: rales, rhonchi, wheezes Cardiovascular exam: PRESENT: RRR. ABSENT: diastolic murmur, rubs, systolic murmur Pulses: PRESENT: normal dorsalis pedis pul Vascular exam: PRESENT: normal capillary refill GI/Abdominal exam: PRESENT: normal bowel sounds, soft. ABSENT: distended, guarding, mass, organolmegaly, rebound, tenderness Rectal exam: PRESENT: deferred Extremities exam: PRESENT: full ROM. ABSENT: calf tenderness, clubbing, pedal edema Neurological exam: PRESENT: alert, awake, oriented to person, oriented to place , oriented to time, oriented to situation, CN II-XII grossly intact. ABSENT: motor sensory deficit Psychiatric exam: PRESENT: appropriate affect, normal mood. ABSENT: homicidal ideation, suicidal ideation Skin exam: PRESENT: dry, intact, warm. ABSENT: cyanosis, rash Results Laboratory Results: 12/15/17 12/15/17 20:23 20:23 Retic Count (auto) 4.00 H Absolute Retic 0.082 Iron 10.2 L TIBC 305 % Saturation 3 Ferritin 44.90 Vitamin B12 > 1000.0 H Folate 19.50 Impressions: Head CT 12/15/17 13:57 IMPRESSION: No acute findings. 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 Assessment & Plan - Diagnosis (1) Anemia Is this a current diagnosis for this admission?: Yes Plan: IMCU admission, appears microcytic, p.o. iron, serial CBC, transfusion of 2 units packed red blood cells. GI consult (2) Confusion Is this a current diagnosis for this admission?: Yes Plan: Given pinpoint pupils likely polypharmacy obtain UDS. Unremarkable ammonia level supportive care (3) Intestinal bleeding Is this a current diagnosis for this admission?: Yes Plan: No history of varices, IV Protonix and GI consult. Follow-up CBC (4) Acute renal failure Qualifiers: Acute renal failure type: unspecified Qualified Code(s): N17.9 - Acute kidney failure, unspecified Is this a current diagnosis for this admission?: Yes Plan: Avoid nephrotoxic meds and doses reevaluate chemistry (5) Cirrhosis of liver not due to alcohol Is this a current diagnosis for this admission?: Yes Plan: Mild coagulopathy vitamin K ordered (6) Hyperkalemia Is this a current diagnosis for this admission?: Yes Plan: Lactulose and Kayexalate ordered. Follow-up chemistry - Time Time Spent: 30 to 50 Minutes - Inpatient Certification Medical Necessity: Need Close Monitoring Due to Risk of Patient Decompensation
[2017-12-16] MEDS ORDERED: INFLUENZA ADLT QUAD (36MOS+) 2017-18 VAC 0.5 ML SYR IM PRN (02:18)
[2017-12-16] MEDS: LACTULOSE SYRUP 20 GM/30 ML UDCUP PO SCH ×6 (03:57→22:02)
[2017-12-16] MEDS: LEVOTHYROXINE SODIUM 0.112 MG TABLET PO SCH (05:27)
[2017-12-16] MEDS: LEVOTHYROXINE SODIUM 0.025 MG TABLET PO SCH (05:27)
[2017-12-16] MEDS: HEPARIN SOD (PORCINE) 5,000 UNIT/ML 1 ML SYRINGE SUBCUT SCH ×3 (05:28→22:03)
[2017-12-16 08:11] LABS: ABSOLUTE EOSINOPHILS # (AUTO) 0.1 10^3/uL (0.0-0.6); ABSOLUTE LYMPHOCYTES (AUTO) 0.5 10^3/uL (0.5-4.7); ABSOLUTE MONOCYTES (AUTO) 0.3 10^3/uL (0.1-1.4); ABSOLUTE NEUT (AUTO) 2.5 10^3/uL (1.7-8.2); BASOPHILS % (AUTO) 0.8 % (0-2); HEMATOCRIT 24.8 % (37.9-51.0); HEMOGLOBIN 8.4 g/dL (13.5-17.0); MEAN CORPUSCULAR HEMOGLOBIN 32.4 pg (27.0-33.4); MONOCYTES % (AUTO) 9.9 % (3-13); RED CELL DISTRIBUTION WIDTH 17.9 % (11.5-14.0); SEGMENTED NEUTROPHILS % (AUTO) 71.3 % (42-78); TOTAL CELLS COUNTED % (AUTO) 100 %; WHITE BLOOD COUNT 3.5 10^3/uL (4.0-10.5)
[2017-12-16 08:13] LABS: MEAN CORPUSCULAR VOLUME 95 fl (80-97); PLATELET COUNT 45 10^3/uL (150-450)
[2017-12-16 08:37] LABS: ALANINE AMINOTRANSFERASE 28 U/L (21-72); ALBUMIN 2.4 g/dL (3.5-5.0); ALKALINE PHOSPHATASE 94 U/L (38-126); ANION GAP 7 (5-19); ASPARTATE AMINO TRANSFERASE 19 U/L (17-59); BILIRUBIN,DIRECT 0.3 mg/dL (0.0-0.4); BILIRUBIN,TOTAL 1.7 mg/dL (0.2-1.3); BLOOD UREA NITROGEN 30 mg/dL (7-20); CALCIUM 8.2 mg/dL (8.4-10.2); CARBON DIOXIDE 21 mmol/L (22-30); CHLORIDE 116 mmol/L (98-107); GLUCOSE 92 mg/dL (75-110); POTASSIUM 4.6 mmol/L (3.6-5.0); SODIUM 143.5 mmol/L (137-145); TOTAL PROTEIN 5.5 g/dL (6.3-8.2)
[2017-12-16] MEDS: FERROUS SULFATE 325 MG TABLET PO SCH ×3 (09:20→17:12)
[2017-12-16] MEDS: NORMAL SALINE 100 ML with PANTOPRAZOLE SODIUM 80 MG IV PRN ×4 (09:20→19:40)
[2017-12-16] MEDS ORDERED: (PENDING PHARMACY ID) (Levothyroxine Sodium [Synthroid] 137 MCG) PO SCH (10:00)
[2017-12-16 10:46] LABS: ABSOLUTE EOSINOPHILS # (AUTO) 0.1 10^3/uL (0.0-0.6); ABSOLUTE LYMPHOCYTES (AUTO) 0.5 10^3/uL (0.5-4.7); ABSOLUTE MONOCYTES (AUTO) 0.4 10^3/uL (0.1-1.4); ABSOLUTE NEUT (AUTO) 2.8 10^3/uL (1.7-8.2); BASOPHILS % (AUTO) 0.9 % (0-2); EOSINOPHILS % (AUTO) 3.6 % (0-6); HEMATOCRIT 24.8 % (37.9-51.0); HEMOGLOBIN 8.6 g/dL (13.5-17.0); LYMPHOCYTES % (AUTO) 13.4 % (13-45); MEAN CORPUSCULAR HEMOGLOBIN 32.9 pg (27.0-33.4); MEAN CORPUSCULAR HGB CONC 34.8 g/dL (32.0-36.0); MEAN CORPUSCULAR VOLUME 95 fl (80-97); MONOCYTES % (AUTO) 9.3 % (3-13); RED BLOOD COUNT 2.62 10^6/uL (4.35-5.55); RED CELL DISTRIBUTION WIDTH 17.7 % (11.5-14.0); SEGMENTED NEUTROPHILS % (AUTO) 72.8 % (42-78); TOTAL CELLS COUNTED % (AUTO) 100 %; WHITE BLOOD COUNT 3.8 10^3/uL (4.0-10.5)
[2017-12-16] MEDS ORDERED: PEG 3350/NA SULF,BICARB,CL/KCL 4000 ML PO ONE (11:00)
[2017-12-16 11:08] LABS: PLATELET COUNT 50 10^3/uL (150-450)
[2017-12-16] MEDS ORDERED: NALOXONE HCL INJ/PF 0.4 MG/1 ML SDV ONE (17:33)
[2017-12-16] MEDS ORDERED: MIDAZOLAM 2 MG/2 ML INJ ONE (17:33)
[2017-12-16] MEDS ORDERED: FENTANYL CITRATE INJ/PF 100 MCG/2 ML AMPUL ONE (17:34)
[2017-12-16] MEDS ORDERED: GLUCAGON,HUMAN RECOMB 1 MG INJ ONE (17:34)
[2017-12-16] MEDS ORDERED: EPINEPHRINE INJ 1 MG/10 ML DISP.SYRIN ONE (17:34)
[2017-12-16] MEDS ORDERED: FLUMAZENIL INJ 0.5 MG/5 ML VIAL ONE (17:34)
--- NOTE | 2017-12-16 19:37 | PDOC CONSULTATION ---
Consultation Consult Date: 12/15/17 History of Present Illness Admission Date/PCP: 12/15/17 20:10 KHLOE COLE MD History of Present Illness: This is a 76-year-old patient who was admitted on 12/15/2016 with change in mental status and anemia. According to he became confused about 3 nights ago and it gradually got worse. He does get confused off and on chronically and has been diagnosed with dementia. He has only been taking lactulose once a day and has 1 bowel movement a day. His hemoglobin on admission was 7.7 with elevated MCH and MCV and a platelet count of 68. His reticulocyte count was elevated at 4. He has a chronic history of anemia with his hemoglobin running about 9 and he also has chronic renal disease. There is no bright red blood per rectum or melena. His stool is dark from his daily use of iron. Past Medical History Cardiac Medical History: Reports: Coronary Artery Disease, Myocardial Infarction , Hyperlipidema, Hypertension Pulmonary Medical History: Denies: Tuberculosis Neurological Medical History: Denies: Seizures Endocrine Medical History: Reports: Diabetes Mellitus Type 2, Hypothyroidism Renal/ Medical History: Reports: Chronic Kidney Disease GI Medical History: Reports: Cirrhosis Psychiatric Medical History: Reports: Dementia, Depression Hematology: Reports: Anemia Past Surgical History Past Surgical History: Reports: Cardiac Catheterization, Cholecystectomy, Gastric Bypass Surgery Denies: Pacemaker Social History Lives with: Spouse/Significant other Smoking Status: Former Smoker Frequency of Alcohol Use: None Hx Recreational Drug Use: No Hx Prescription Drug Abuse: No - Advance Directive Resuscitation Status: Do Not Resuscitate Family History Family History: DM, Hypertension Parental Family History Reviewed: No Children Family History Reviewed: NA Sibling(s) Family History Reviewed.: NA Medication/Allergy Home Medications: Cyanocobalamin (Vitamin B-12) [Vitamin B-12 1000 Mcg Tablet] 1,000 mcg PO DAILY 12/15/17 Epoetin Chris [Procrit] 2,000 unit IJ [id number] 12/15/17 Ferrous Sulfate [Iron] 325 mg PO TID 12/15/17 Fluoxetine HCl [Prozac 20 mg Capsule] 20 mg PO BID 12/15/17 Isosorbide Mononitrate [Isosorbide Mononitrate ER] 60 mg PO DAILY 12/15/17 Lactulose [Cephulac 20 gm/30 ml Syrup UD Cup] 20 gm PO DAILY 12/15/17 Levothyroxine Sodium [Synthroid] 137 mcg PO DAILY 12/15/17 Spironolactone [Aldactone 25 mg Tablet] 75 mg PO DAILY 12/15/17 Allergies/Adverse Reactions: No Known Allergies Allergy (Verified 12/15/17 13:27) Review of Systems Review of Systems: Difficult to obtain from patient. He tells me he has no complaints but he is not a reliable historian Physical Exam Vital Signs: Temp Pulse Resp BP Pulse Ox 97.6 F 63 17 114/42 L 99 12/16/17 15:58 12/16/17 19:20 12/16/17 19:20 12/16/17 19:20 12/16/17 19:20 Intake & Output 12/15/17 12/16/17 12/17/17 06:59 06:59 06:59 Intake Total 2700 820 Output Total 300 Balance 2400 820 Weight 92 kg Exam: General: Patient is alert and looks well. HEENT: He is pale but not jaundiced. PERRLA. Oropharynx normal Respiratory: No chest deformity. No respiratory distress. Chest wall palpitation was unremarkable. Breath sounds were normal Cardiovascular: Heart sounds 1 and 2 normal with no murmurs. Abdominal: Not distended. Soft and nontender. Liver and spleen not palpable. No ascites demonstrated. Bowel sounds active. Rectal examination was deferred. Extremities: No edema Neurological: Grossly nonfocal. Skin: No significant rash Results Laboratory Results: 12/16/17 09:51 12/16/17 07:50 12/15/17 12/15/17 12/16/17 20:23 20:23 07:50 WBC 3.5 L RBC 2.60 L Hgb 8.4 L Hct 24.8 L MCV 95 D MCH 32.4 MCHC 34.0 RDW 17.9 H Plt Count 45 L Seg Neutrophils % 71.3 Lymphocytes % 14.0 Monocytes % 9.9 Eosinophils % 4.0 Basophils % 0.8 Absolute Neutrophils 2.5 Absolute Lymphocytes 0.5 Absolute Monocytes 0.3 Absolute Eosinophils 0.1 Absolute Basophils 0.0 Retic Count (auto) 4.00 H Absolute Retic 0.082 Sodium Potassium Chloride Carbon Dioxide Anion Gap BUN Creatinine Est GFR ( Amer) Est GFR (Non-Af Amer) Glucose Calcium Iron 10.2 L TIBC 305 % Saturation 3 Ferritin 44.90 Total Bilirubin AST ALT Alkaline Phosphatase Total Protein Albumin Vitamin B12 > 1000.0 H Folate 19.50 12/16/17 12/16/17 07:50 09:51 WBC 3.8 L RBC 2.62 L Hgb 8.6 L Hct 24.8 L MCV 95 MCH 32.9 MCHC 34.8 RDW 17.7 H Plt Count 50 L Seg Neutrophils % 72.8 Lymphocytes % 13.4 Monocytes % 9.3 Eosinophils % 3.6 Basophils % 0.9 Absolute Neutrophils 2.8 Absolute Lymphocytes 0.5 Absolute Monocytes 0.4 Absolute Eosinophils 0.1 Absolute Basophils 0.0 Retic Count (auto) Absolute Retic Sodium 143.5 Potassium 4.6 Chloride 116 H Carbon Dioxide 21 L Anion Gap 7 BUN 30 H Creatinine 1.82 H Est GFR ( Amer) 44 L Est GFR (Non-Af Amer) 36 L Glucose 92 Calcium 8.2 L Iron TIBC % Saturation Ferritin Total Bilirubin 1.7 H AST 19 ALT 28 Alkaline Phosphatase 94 Total Protein 5.5 L Albumin 2.4 L Vitamin B12 Folate Impressions: Head CT 12/15/17 13:57 IMPRESSION: No acute findings. 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 Assessment & Plan - Diagnosis (1) Encephalopathy, hepatic Is this a current diagnosis for this admission?: Yes Plan: His primary illness is hepatic encephalopathy in the background of dementia. I started him on lactulose enough to give him diarrhea. According to the he does not like to take the lactulose at home. I will start him on rifaximin twice daily and a prescription will be sent to his pharmacy. He should still continue with the lactulose (2) Anemia in chronic renal disease Is this a current diagnosis for this admission?: Yes Plan: His anemia is related to his chronic illnesses including his liver disease and renal failure. His dark stool is from his use of iron. He had EGD and colonoscopy in August 2016 and an EGD in June 2017. (3) Cirrhosis of liver not due to alcohol Is this a current diagnosis for this admission?: Yes (4) Melena Is this a current diagnosis for this admission?: No Plan: According to his his stool is actually dark green which is likely from his use of iron and unlikely to be from GI bleed (5) Pancytopenia Is this a current diagnosis for this admission?: Yes
--- NOTE | 2017-12-16 19:43 | Operative Report ---
Operative Report DATE OF SURGERY: 12/16/17 Operative Report: Pre-op diagnosis: Anemia and heme-positive stool Post-op diagnosis: 1. Gastric body polyps and gastritis 2. Small esophageal varices(F1) with no bleeding 3. Sigmoid diverticulosis 4. Internal hemorrhoids Surgery: Upper endoscopy and Colonoscopy Medications: Versed 2mg, Fentanyl 100mcg IV push Tissue removed: None Procedure: After informed consent obtained from patient, patient's pharynx was sprayed with Hurricane and conscious sedation was achieved. The upper endoscope was then inserted into the esophagus under direct vision and advanced into the stomach and further into the duodenum. Detailed examination of the duodenum, stomach and the esophagus was then performed. A digital rectal examination was performed and this was unremarkable. The colonoscope was inserted into the rectum and advanced to the cecum. The appendiceal orifice and the terminal ileum were both identified. The mucosa was examined into details as the colonoscope was slowly pulled out of the patient. The endoscope was retroflexed in the rectum. Patient tolerated the procedure well. Findings Esophagus: 2 short columns of varices that flattened with insufflation Stomach: Three 5-6 mm polyps in the gastric body with mild erythema Duodenum: Normal Terminal ileum: Normal Cecum: Normal Ascending colon: Normal Transverse colon: Normal Descending colon: Normal Sigmoid colon: Few diverticuli Rectum: Normal except for internal hemorrhoids Plan: Continue PPI. Will hold off on beta-blockers due to his small varices OPERATION: .
[2017-12-16] MEDS: RIFAXIMIN 550 MG TABLET PO SCH (22:02)
[2017-12-17] MEDS: LACTULOSE SYRUP 20 GM/30 ML UDCUP PO SCH ×3 (04:43→09:44)
[2017-12-17] MEDS: HEPARIN SOD (PORCINE) 5,000 UNIT/ML 1 ML SYRINGE SUBCUT SCH (05:34)
[2017-12-17] MEDS: LEVOTHYROXINE SODIUM 0.112 MG TABLET PO SCH (06:13)
[2017-12-17] MEDS: LEVOTHYROXINE SODIUM 0.025 MG TABLET PO SCH (06:14)
[2017-12-17] MEDS ORDERED: LANSOPRAZOLE 30 MG TAB.RAP.DR PO SCH (08:00)
[2017-12-17] MEDS: RIFAXIMIN 550 MG TABLET PO SCH (09:43)
[2017-12-17] MEDS: FERROUS SULFATE 325 MG TABLET PO SCH (09:43)
[2017-12-17 11:30] LABS: ABSOLUTE EOSINOPHILS # (AUTO) 0.2 10^3/uL (0.0-0.6); ABSOLUTE LYMPHOCYTES (AUTO) 0.5 10^3/uL (0.5-4.7); ABSOLUTE MONOCYTES (AUTO) 0.5 10^3/uL (0.1-1.4); ABSOLUTE NEUT (AUTO) 2.9 10^3/uL (1.7-8.2); BASOPHILS % (AUTO) 0.7 % (0-2); HEMATOCRIT 26.3 % (37.9-51.0); HEMOGLOBIN 9.1 g/dL (13.5-17.0); LYMPHOCYTES % (AUTO) 12.4 % (13-45); MEAN CORPUSCULAR HGB CONC 34.6 g/dL (32.0-36.0); MEAN CORPUSCULAR VOLUME 95 fl (80-97); MONOCYTES % (AUTO) 11.9 % (3-13); RED BLOOD COUNT 2.76 10^6/uL (4.35-5.55); RED CELL DISTRIBUTION WIDTH 17.3 % (11.5-14.0); TOTAL CELLS COUNTED % (AUTO) 100 %; WHITE BLOOD COUNT 4.1 10^3/uL (4.0-10.5)
[2017-12-17 11:33] LABS: PLATELET COUNT 48 10^3/uL (150-450)
[2017-12-17 13:57] VITALS: BP 135/58
--- NOTE | 2017-12-20 15:55 | PDOC DISCHARGE SUMMARY ---
General - Admit/Disc Date/PCP Admission Date/Primary Care Provider: 12/15/17 20:10 KHLOE COLE MD Discharge Date: 12/17/17 - Additional Information Resuscitation Status: Do Not Resuscitate Discharge Diet: As Tolerated Discharge Activity: Activity As Tolerated Prescriptions: Pantoprazole Sodium [Protonix] 40 mg PO BID 30 Days #60 tablet.dr Vee Medications: Cyanocobalamin (Vitamin B-12) [Vitamin B-12 1000 mcg Tablet] 1,000 mcg PO DAILY 12/15/17 Epoetin Chris [Procrit] 2,000 unit IJ [id number] 12/15/17 Ferrous Sulfate [Iron] 325 mg PO TID 12/15/17 Fluoxetine HCl [Prozac 20 mg Capsule] 20 mg PO BID 12/15/17 Isosorbide Mononitrate [Isosorbide Mononitrate ER] 60 mg PO DAILY 12/15/17 Lactulose [Cephulac Syrup 20 gm/30 ml Udcup] 20 gm PO DAILY 12/15/17 Levothyroxine Sodium [Synthroid] 137 mcg PO DAILY 12/15/17 Pantoprazole Sodium [Protonix] 40 mg PO BID 30 Days #60 tablet. 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 Patient presents with 48 hours of altered mental status brought to the emergency room for evaluation he is awake, alert oriented 1 and socially appropriate with unclear baseline as no historian is available. In the emergency room is found to have hyperkalemia, anemia, Hemoccult stool positive, normal ammonia level but pinpoint pupils. He is referred to the hospitalist for admission. Hospital Course Hospital Course: Patient underwent endoscopy : Dr Barajas "Operative Report DATE OF SURGERY: 12/16/17 Operative Report: Pre-op diagnosis: Anemia and heme-positive stool Post-op diagnosis: 1. Gastric body polyps and gastritis 2. Small esophageal varices(F1) with no bleeding 3. Sigmoid diverticulosis 4. Internal hemorrhoids Surgery: Upper endoscopy and Colonoscopy Medications: Versed 2mg, Fentanyl 100mcg IV push Tissue removed: None Procedure: After informed consent obtained from patient, patient's pharynx was sprayed with Hurricane and conscious sedation was achieved. The upper endoscope was then inserted into the esophagus under direct vision and advanced into the stomach and further into the duodenum. Detailed examination of the duodenum, stomach and the esophagus was then performed. A digital rectal examination was performed and this was unremarkable. The colonoscope was inserted into the rectum and advanced to the cecum. The appendiceal orifice and the terminal ileum were both identified. The mucosa was examined into details as the colonoscope was slowly pulled out of the patient. The endoscope was retroflexed in the rectum. Patient tolerated the procedure well. Findings Esophagus: 2 short columns of varices that flattened with insufflation Stomach: Three 5-6 mm polyps in the gastric body with mild erythema Duodenum: Normal Terminal ileum: Normal Cecum: Normal Ascending colon: Normal Transverse colon: Normal Descending colon: Normal Sigmoid colon: Few diverticuli Rectum: Normal except for internal hemorrhoids Plan: Continue PPI. Will hold off on beta-blockers due to his small varices" 1- Altered mental status 12/15/17 12/15/17 12/16/17 20:02 20:23 09:51 Hgb 8.6 L Hct 24.8 L Iron 10.2 L Ammonia 34.5 H Vitamin B12 > 1000.0 H 12/17/17 11:04 Hgb 9.1 L Hct 26.3 L Iron Ammonia Vitamin B12 Patient was treated with lactulose and rifaximin ; his ammonia level was very mildly elevated at 34 his mental status improved He was discharged on lactulose 2- GI bleed Patient underwent endoscopy was found to have a very small gastric varices , no active upper GI bleed Patient was discharged on PPI his H&H remained stable And at discharge it is 9.1 and 26 3 anemia acute and chronic iron deficiency anemia Vitamin B12 level was normal Patient was advised to take iron supplements Physical Exam Vital Signs: Temp Pulse Resp BP Pulse Ox 98.5 F 67 14 135/58 H 97 12/17/17 13:52 12/17/17 13:52 12/17/17 13:52 12/17/17 13:52 12/17/17 13:52 General appearance: PRESENT: no acute distress, well-developed, well-nourished Head exam: PRESENT: atraumatic, normocephalic Eye exam: PRESENT: conjunctiva pink, EOMI, PERRLA. ABSENT: scleral icterus Ear exam: PRESENT: normal external ear exam Mouth exam: PRESENT: moist, tongue midline Neck exam: ABSENT: carotid bruit, JVD, lymphadenopathy, thyromegaly Respiratory exam: PRESENT: clear to auscultation isabel. ABSENT: rales, rhonchi, wheezes Cardiovascular exam: PRESENT: RRR. ABSENT: diastolic murmur, rubs, systolic murmur Pulses: PRESENT: normal dorsalis pedis pul Vascular exam: PRESENT: normal capillary refill GI/Abdominal exam: PRESENT: normal bowel sounds, soft. ABSENT: distended, guarding, mass, organolmegaly, rebound, tenderness Rectal exam: PRESENT: deferred Extremities exam: PRESENT: full ROM. ABSENT: calf tenderness, clubbing, pedal edema Neurological exam: PRESENT: alert, awake, CN II-XII grossly intact. ABSENT: motor sensory deficit Psychiatric exam: PRESENT: appropriate affect, normal mood. ABSENT: homicidal ideation, suicidal ideation Skin exam: PRESENT: cyanosis Results Laboratory Results: 12/17/17 11:04 12/16/17 07:50 Impressions: Head CT 12/15/17 13:57 IMPRESSION: No acute findings. 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 Plan Discharge Plan: Patient was discharged home to follow-up with his primary care physician within a week time Time Spent: Greater than 30 Minutes
== END 2017-12-17 14:34 | disposition home or self-care (01) | DRG 442 ==
LOC: ER 12:36 → EH 20:10 → 3N 22:32
PROVIDERS: ADMIT Internal Medicine; ATTEND Internal Medicine
PROC: 30233N1 Transfusion of Nonautologous Red Blood Cells into Peripheral Vein, Percutaneous Approach (ICD-10-PCS; principal; 2017-12-15)
PROC: 0DJD8ZZ Inspection of Lower Intestinal Tract, Via Natural or Artificial Opening Endoscopic (ICD-10-PCS; 2017-12-16)
PROC: 0DJ08ZZ Inspection of Upper Intestinal Tract, Via Natural or Artificial Opening Endoscopic (ICD-10-PCS; 2017-12-16 18:00)
DX: K72.90 Hepatic failure, unspecified without coma (principal); N17.9 Acute kidney failure, unspecified; K92.1 Melena; D61.818 Other pancytopenia; I85.00 Esophageal varices without bleeding; Z66 Do not resuscitate; E87.5 Hyperkalemia; R41.82 Altered mental status, unspecified; I25.10 Atherosclerotic heart disease of native coronary artery without angina pectoris; E11.22 Type 2 diabetes mellitus with diabetic chronic kidney disease; I12.9 Hypertensive chronic kidney disease with stage 1 through stage 4 chronic kidney disease, or unspecified chronic kidney disease; N18.3 Chronic kidney disease, stage 3 (moderate); E03.9 Hypothyroidism, unspecified; K74.69 Other cirrhosis of liver; D63.1 Anemia in chronic kidney disease; K31.7 Polyp of stomach and duodenum; K29.70 Gastritis, unspecified, without bleeding; K57.30 Diverticulosis of large intestine without perforation or abscess without bleeding; K64.8 Other hemorrhoids; F03.90 Unspecified dementia, unspecified severity, without behavioral disturbance, psychotic disturbance, mood disturbance, and anxiety
CPT/HCPCS: 36415; 36430; 43235; 45378; 70450; 80053; 80307; 81001; 82140; 82272; 82550; 82553; 82607; 82728; 82746; 82962; 83540; 83550; 83735; 84443; 84484; 85025; 85045; 85610; 86850; 86900; 86901; 86920; 93005; 93010; 99285; A9270-GY; J0171; J1610; J2250; J2310; J3010; J3430; J3490; J7030; J7050; P9016; S0164

== ENCOUNTER → 2018-01-07 | Outpatient (CLI) | payer MEDICARE, OTHER ==
[2018-01-07 08:53] LABS: HEMATOCRIT 24.1 % (37.9-51.0); HEMOGLOBIN 8.3 g/dL (13.5-17.0); MEAN CORPUSCULAR HEMOGLOBIN 33.2 pg (27.0-33.4); MEAN CORPUSCULAR HGB CONC 34.2 g/dL (32.0-36.0); MEAN CORPUSCULAR VOLUME 97 fl (80-97); RED BLOOD COUNT 2.49 10^6/uL (4.35-5.55); RED CELL DISTRIBUTION WIDTH 15.6 % (11.5-14.0); WHITE BLOOD COUNT 2.6 10^3/uL (4.0-10.5)
[2018-01-07 09:18] LABS: ALANINE AMINOTRANSFERASE 23 U/L (21-72); ALBUMIN 2.6 g/dL (3.5-5.0); ALKALINE PHOSPHATASE 105 U/L (38-126); ANION GAP 6 (5-19); ASPARTATE AMINO TRANSFERASE 19 U/L (17-59); BILIRUBIN,DIRECT 0.1 mg/dL (0.0-0.4); BILIRUBIN,TOTAL 0.5 mg/dL (0.2-1.3); BLOOD UREA NITROGEN 27 mg/dL (7-20); CALCIUM 8.1 mg/dL (8.4-10.2); CARBON DIOXIDE 26 mmol/L (22-30); CHLORIDE 110 mmol/L (98-107); GLUCOSE 119 mg/dL (75-110); POTASSIUM 4.1 mmol/L (3.6-5.0); SODIUM 141.5 mmol/L (137-145); TOTAL PROTEIN 5.4 g/dL (6.3-8.2)
[2018-01-07 09:46] LABS: PLATELET COUNT 36 10^3/uL (150-450)
== END ==
LOC: OD 08:00
PROVIDERS: ATTEND Internal Medicine Gastroenterology
DX: K74.69 Other cirrhosis of liver (principal)
CPT/HCPCS: 36415; 80048; 80076; 85027

== ENCOUNTER → 2018-03-14 | Outpatient (CLI) | payer MEDICARE, OTHER ==
[2018-03-14 08:48] LABS: HEMATOCRIT 30.8 % (37.9-51.0); HEMOGLOBIN 10.6 g/dL (13.5-17.0); MEAN CORPUSCULAR HEMOGLOBIN 32.3 pg (27.0-33.4); MEAN CORPUSCULAR HGB CONC 34.5 g/dL (32.0-36.0); MEAN CORPUSCULAR VOLUME 94 fl (80-97); RED BLOOD COUNT 3.29 10^6/uL (4.35-5.55); RED CELL DISTRIBUTION WIDTH 16.9 % (11.5-14.0); WHITE BLOOD COUNT 3.4 10^3/uL (4.0-10.5)
[2018-03-14 08:51] LABS: APPEARANCE,URINE CLEAR; BILIRUBIN,URINE NEGATIVE (NEGATIVE); COLOR,URINE YELLOW; GLUCOSE, URINE NEGATIVE (NEGATIVE); KETONES,URINE NEGATIVE (NEGATIVE); LEUKOCYTE ESTERASE,URINE NEGATIVE (NEGATIVE); NITRITE,URINE NEGATIVE (NEGATIVE); PROTEIN,URINE 30 mg/dL (NEGATIVE); URINE SPECIFIC GRAVITY 1.019
[2018-03-14 09:12] LABS: PLATELET COUNT 36 10^3/uL (150-450)
[2018-03-14 09:36] LABS: ANION GAP 6 (5-19); BLOOD UREA NITROGEN 35 mg/dL (7-20); CALCIUM 8.7 mg/dL (8.4-10.2); CARBON DIOXIDE 29 mmol/L (22-30); CHLORIDE 110 mmol/L (98-107); GLUCOSE 99 mg/dL (75-110); POTASSIUM 4.6 mmol/L (3.6-5.0); SODIUM 144.8 mmol/L (137-145)
== END ==
LOC: OD 07:51
PROVIDERS: ATTEND Internal Medicine Nephrology
DX: N18.3 Chronic kidney disease, stage 3 (moderate) (principal); E11.9 Type 2 diabetes mellitus without complications; E87.5 Hyperkalemia; D64.9 Anemia, unspecified
CPT/HCPCS: 36415; 80048; 81001; 85027

== ENCOUNTER → 2018-03-28 | Outpatient (CLI) | payer MEDICARE, OTHER ==
[2018-03-28 08:25] LABS: INTERNATIONAL RATION (INR) 1.28; PROTHROMBIN TIME 16.6 SEC (11.4-15.4)
[2018-03-28 08:36] LABS: ALANINE AMINOTRANSFERASE 29 U/L (21-72); ALBUMIN 3.1 g/dL (3.5-5.0); ALKALINE PHOSPHATASE 127 U/L (38-126); ASPARTATE AMINO TRANSFERASE 27 U/L (17-59); BILIRUBIN,DIRECT 0.6 mg/dL (0.0-0.4); BILIRUBIN,TOTAL 1.9 mg/dL (0.2-1.3); TOTAL PROTEIN 6.5 g/dL (6.3-8.2)
== END ==
LOC: OD 07:28
PROVIDERS: ATTEND Physician Assistant Surgical
DX: K74.69 Other cirrhosis of liver (principal)
CPT/HCPCS: 36415; 80076; 82105; 85610

== ENCOUNTER → 2018-04-18 | Outpatient (CLI) | payer MEDICARE, OTHER ==
[2018-04-18 18:57] LABS: PROTHROMBIN TIME 16.9 SEC (11.4-15.4)
[2018-04-18 19:04] LABS: HEMATOCRIT 24.4 % (37.9-51.0); HEMOGLOBIN 8.6 g/dL (13.5-17.0); MEAN CORPUSCULAR HEMOGLOBIN 33.2 pg (27.0-33.4); MEAN CORPUSCULAR HGB CONC 35.2 g/dL (32.0-36.0); MEAN CORPUSCULAR VOLUME 94 fl (80-97); RED BLOOD COUNT 2.59 10^6/uL (4.35-5.55); RED CELL DISTRIBUTION WIDTH 16.8 % (11.5-14.0); WHITE BLOOD COUNT 4.1 10^3/uL (4.0-10.5)
[2018-04-18 19:18] LABS: ALANINE AMINOTRANSFERASE 24 U/L (21-72); ALBUMIN 2.8 g/dL (3.5-5.0); ALKALINE PHOSPHATASE 145 U/L (38-126); ANION GAP 11 (5-19); ASPARTATE AMINO TRANSFERASE 25 U/L (17-59); BILIRUBIN,DIRECT 0.5 mg/dL (0.0-0.4); BILIRUBIN,TOTAL 0.9 mg/dL (0.2-1.3); BLOOD UREA NITROGEN 59 mg/dL (7-20); CALCIUM 8.7 mg/dL (8.4-10.2); CARBON DIOXIDE 25 mmol/L (22-30); CHLORIDE 108 mmol/L (98-107); GLUCOSE 114 mg/dL (75-110); POTASSIUM 5.1 mmol/L (3.6-5.0); SODIUM 143.9 mmol/L (137-145); TOTAL PROTEIN 5.7 g/dL (6.3-8.2)
[2018-04-18 19:25] LABS: PLATELET COUNT 45 10^3/uL (150-450)
== END ==
LOC: OD 18:10
PROVIDERS: ATTEND Internal Medicine Gastroenterology
DX: K92.0 Hematemesis (principal)
CPT/HCPCS: 36415; 80048; 80076; 85027; 85610; 86850; 86900; 86901

== ENCOUNTER 2018-04-19 12:26 | Inpatient (IN) | payer MEDICARE, OTHER ==
[2018-04-19] MEDS ORDERED: DIPHENHYDRAMINE HCL 50 MG/ML VIAL ONE (15:20)
[2018-04-19] MEDS ORDERED: FLUMAZENIL INJ 0.5 MG/5 ML VIAL ONE (15:21)
[2018-04-19] MEDS ORDERED: FENTANYL CITRATE INJ/PF 100 MCG/2 ML AMPUL ONE ×2 (15:21)
[2018-04-19] MEDS ORDERED: NALOXONE HCL INJ/PF 0.4 MG/1 ML SDV ONE (15:21)
[2018-04-19] MEDS ORDERED: GLUCAGON,HUMAN RECOMB 1 MG INJ ONE (15:22)
[2018-04-19] MEDS ORDERED: EPINEPHRINE INJ 1 MG/10 ML DISP.SYRIN ONE (15:22)
[2018-04-19] MEDS: MIDAZOLAM 2 MG/2 ML INJ ONE ×2 (16:44→16:52)
--- NOTE | 2018-04-19 17:42 | PDOC CONSULTATION ---
Consultation Consult Date: 04/19/18 History of Present Illness History of Present Illness: GABI GONG is a 77 year old male patient was admitted to the hospital after endoscopy for an acute GI bleed. He had an EGD today that showed oozing of blood from multiple areas in the antrum. This is likely from portal hypotensive gastropathy. He is being admitted for IV octreotide and monitoring of his hemoglobin. His hemoglobin was 10.6 on 03/14/2018 and 8.6 yesterday. His hemoglobin was between 8.3 and 9.1 between November and December of this year. I saw him in the office yesterday with his when he complained of 3 episodes of hematemesis a few days prior. He also had some melena and some redness in the stool 3 days ago. He has been having some dark stools in the last few days though he does take iron. He had normal vomiting for the last 2 days prior to seeing him at the office yesterday. He denies abdominal pain. Previous EGD in June of last year did not show only showed small esophageal varices. He has thrombocytopenia with a platelet count of 45 yesterday. Past Medical History Cardiac Medical History: Reports: Coronary Artery Disease, Myocardial Infarction , Hyperlipidema, Hypertension Pulmonary Medical History: Denies: Asthma, Bronchitis, Chronic Obstructive Pulmonary Disease (COPD), Pneumonia, Tuberculosis Neurological Medical History: Denies: Seizures Endocrine Medical History: Reports: Diabetes Mellitus Type 2, Hypothyroidism GI Medical History: Reports: Cirrhosis GI History Note: Cirrhosis, portal gastropathy, small esophageal varices, partial portal vein thrombosis, hepatic encephalopathy, pancreatic cyst, hypothyroidism, depression , splenomegaly, 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, hypertension, diabetes, ischemic stroke, chronic anemia and reflux Musculoskeltal Medical History: Denies: Arthritis Psychiatric Medical History: Reports: Dementia, Depression Hematology: Reports: Anemia Past Surgical History Past Surgical History: Multiple EGDs and colonoscopies, coronary artery bypass, cholecystectomy, Past Surgical History: Reports: Cardiac Catheterization, Cholecystectomy, Gastric Bypass Surgery Denies: Pacemaker Social History Smoking Status: Unknown if Ever Smoked Frequency of Alcohol Use: None Hx Recreational Drug Use: No Hx Prescription Drug Abuse: No Family History Family History: DM, Hypertension Parental Family History Reviewed: No Children Family History Reviewed: NA Sibling(s) Family History Reviewed.: NA Medication/Allergy Home Medications: Cyanocobalamin (Vitamin B-12) [Vitamin B-12 1000 mcg Tablet] 1,000 mcg PO QHS Epoetin Chris [Procrit] 10,000 unit IJ ASDIR PRN 12/15/17 Ferrous Sulfate [Iron] 325 mg PO QHS 12/15/17 Fluoxetine HCl [Prozac 20 mg Capsule] 20 mg PO QHS 12/15/17 Isosorbide Mononitrate [Isosorbide Mononitrate ER] 60 mg PO DAILY 12/15/17 Lactulose [Cephulac Syrup 20 gm/30 ml Udcup] 20 gm PO PRN PRN 12/15/17 Levothyroxine Sodium [Synthroid] 137 mcg PO QHS 12/15/17 Furosemide [Lasix 40 mg Tablet] 40 mg PO QAM 04/19/18 Pantoprazole Sodium [Protonix] 40 mg PO DAILY 04/19/18 Spironolactone 25 mg PO QHS 04/19/18 Spironolactone [Aldactone 25 mg Tablet] 50 mg PO DAILY 04/19/18 Allergies/Adverse Reactions: No Known Allergies Allergy (Verified 04/19/18 15:55) Review of Systems All systems: reviewed and no additional remarkable complaints except as stated Physical Exam Vital Signs: Temp Pulse Resp BP Pulse Ox 98.1 F 66 17 132/51 H 100 04/19/18 15:37 04/19/18 17:10 04/19/18 17:10 04/19/18 17:10 04/19/18 17:10 Intake & Output 04/18/18 04/19/18 04/20/18 06:59 06:59 06:59 Intake Total 500 Balance 500 Weight 90.72 kg Exam: General: Patient is alert and looks well. HEENT: There is some pallor but no jaundice. PERRLA. Oropharynx normal Respiratory: He has some kyphosis. No respiratory distress. Chest wall palpitation was unremarkable. Breath sounds were normal Cardiovascular: Heart sounds 1 and 2 normal with no murmurs. Abdominal: Not distended. Soft and nontender. Liver and spleen not palpable. No ascites demonstrated. Bowel sounds active. Rectal examination was deferred. Extremities: No edema Neurological: Alert and oriented x4. Skin: No significant rash Psychological: Normal affect Assessment & Plan - Diagnosis (1) Acute upper GI bleed Is this a current diagnosis for this admission?: Yes Plan: He is having active oozing of blood from his portal gastropathy and will be admitted for further treatment. He does not have evidence for gastric vascular ectasia. He will be started on octreotide given over the next 2-3 days. He will need to be started on nadolol once he is stable. His H&H will be followed. He may require platelet transfusion if active bleeding continues to be a problem. (2) Portal hypertensive gastropathy Is this a current diagnosis for this admission?: Yes (4) Thrombocytopenia Is this a current diagnosis for this admission?: Yes Plan: With hold off on platelet transfusion for now (5) Cirrhosis of liver Qualifiers: Hepatic cirrhosis type: unspecified hepatic cirrhosis Ascites presence: without ascites Qualified Code(s): K74.60 - Unspecified cirrhosis of liver Is this a current diagnosis for this admission?: Yes (6) Anemia Qualifiers: Anemia type: other cause Is this a current diagnosis for this admission?: Yes Plan: His anemia is multifactorial mostly related to his chronic diseases including renal failure. It is probably slightly worse now due to his GI bleed.
[2018-04-19] MEDS ORDERED: NORMAL SALINE 500 ML with OCTREOTIDE ACETATE 500 MCG IV PRN ×2 (17:57)
[2018-04-19] MEDS ORDERED: IPRATROPIUM/ALBUTEROL 0.5-2.5 MG/3 ML AMPUL NEB PRN (18:17)
--- NOTE | 2018-04-19 18:22 | Operative Report ---
Operative Report DATE OF SURGERY: 04/19/18 Operative Report: Pre-op diagnosis: Recent episodes of hematemesis with history of cirrhosis Post-op diagnosis: 1. Active oozing of blood from the gastric antrum 2. Portal hypertensive gastropathy with bleeding 3. Small, short esophageal varices with no evidence of recent bleeding Surgery: Esophagogastroduodenoscopy with radiofrequency ablation Medications: Versed 2mg Fentanyl 100mcg IV push Tissue removed: None Procedure: After informed consent obtained from patient, the throat was sprayed with Hurricane and conscious sedation was achieved. The upper endoscope was inserted into the esophagus under direct vision and advanced into the stomach. The duodenum was entered and examined to the second part. Endoscope was then slowly pulled out of the patient as the mucosa was examined into details. Patient tolerated procedure well. Findings Esophagus: There was a small short varix with no evidence for recent bleeding Antrum: There were 3-4 areas of slight oozing of blood with no ulceration or linear erythema to suggest vascular ectasia. Patient had mild edema and some mosaic pattern noted in the gastric antrum and body consistent with portal gastropathy. I attempted to cauterize 2 spots with the TTS ablation catheter but this caused more bleeding. No further ablation was performed Body: Normal Fundus: Normal Duodenum first part: Normal Duodenum second part: Normal Plan: He will be admitted for IV octreotide, monitoring of CBC, and nonselective beta- epifanio. He will be started on Cipro for SBP prophylaxis OPERATION: .
--- NOTE | 2018-04-19 18:39 | PDOC H&P ---
History of Present Illness Admission Date/PCP: 04/19/18 Dr. Clifton Peña Patient complains of: Hematemesis and melena History of Present Illness: 77 year old male with past medical history of: Idiopathic cirrhosis Dementia Depression CKD Hypothyroidism CAD Past history of Diabetes- now reversed CABG Hypertension Outpatient meds: Lasix 40 mg PO daily Fluoxetine 20 mg daily Spironolactone 75 mg PO daily Imdur 60 mg PO daily Ferrous sulfate 325 mg po daily Pantoprazole 40 mg PO daily Synthroid 137 mcg daily Procrit He developed melena and hematemesis 4 days ago and this was ongoing. the patient has had reduced appetite and weakness. He saw his inside b2b sales Dr. Barajas on Wednesday, and had an endoscopy done today. Dr. Barajas called me to say that he found no esophageal varices, but oozing portal gastropathy and recommended admission, Octreotide gtt and IV Protonix. The patient denies nausea or abdominal pain His Giovanna who is his healthcare POA is at the bedside. number . He wishes to be a DNR. Past Medical History Cardiac Medical History: Reports: Coronary Artery Disease, Myocardial Infarction , Hyperlipidema, Hypertension Endocrine Medical History: Reports: Diabetes Mellitus Type 2, Hypothyroidism GI Medical History: Reports: Cirrhosis Psychiatric Medical History: Reports: Dementia, Depression Hematology: Reports: Anemia Past Surgical History Past Surgical History: Reports: Cardiac Catheterization, Cholecystectomy, Gastric Bypass Surgery Social History Smoking Status: Never Smoker Frequency of Alcohol Use: None Hx Recreational Drug Use: No Hx Prescription Drug Abuse: No - Advance Directive Resuscitation Status: Do Not Resuscitate Family History Family History: DM, Hypertension Parental Family History Reviewed: Yes Children Family History Reviewed: Yes Sibling(s) Family History Reviewed.: Yes Medication/Allergy Home Medications: Cyanocobalamin (Vitamin B-12) [Vitamin B-12 1000 mcg Tablet] 1,000 mcg PO QHS Epoetin Chris [Procrit] 10,000 unit IJ ASDIR PRN 12/15/17 Ferrous Sulfate [Iron] 325 mg PO QHS 12/15/17 Fluoxetine HCl [Prozac 20 mg Capsule] 20 mg PO QHS 12/15/17 Isosorbide Mononitrate [Isosorbide Mononitrate ER] 60 mg PO DAILY 12/15/17 Lactulose [Cephulac Syrup 20 gm/30 ml Udcup] 20 gm PO PRN PRN 12/15/17 Levothyroxine Sodium [Synthroid] 137 mcg PO QHS 12/15/17 Furosemide [Lasix 40 mg Tablet] 40 mg PO QAM 04/19/18 Pantoprazole Sodium [Protonix] 40 mg PO DAILY 04/19/18 Spironolactone 25 mg PO QHS 04/19/18 Spironolactone [Aldactone 25 mg Tablet] 50 mg PO DAILY 04/19/18 Allergies/Adverse Reactions: No Known Allergies Allergy (Verified 04/19/18 15:55) Review of Systems Constitutional: PRESENT: fatigue. ABSENT: fever(s) Eyes: ABSENT: visual disturbances Ears: PRESENT: other - hard of hearing Nose, Mouth, and Throat: ABSENT: sore throat Cardiovascular: ABSENT: chest pain, edema Respiratory: ABSENT: dyspnea, hemoptysis Gastrointestinal: PRESENT: hematemesis, melena Genitourinary: ABSENT: dysuria Musculoskeletal: ABSENT: joint swelling Integumentary: ABSENT: rash Neurological: ABSENT: focal weakness Psychiatric: ABSENT: hallucinations Endocrine: ABSENT: polyphagia Allergic/Immunologic: ABSENT: seasonal rhinorrhea Physical Exam Vital Signs: Temp Pulse Resp BP Pulse Ox 98 F 68 12 136/57 H 100 04/19/18 17:42 04/19/18 17:42 04/19/18 17:42 04/19/18 17:42 04/19/18 17:42 Intake & Output 04/18/18 04/19/18 04/20/18 06:59 06:59 06:59 Intake Total 500 Balance 500 Weight 90.718 kg General appearance: PRESENT: no acute distress Head exam: PRESENT: normocephalic Eye exam: PRESENT: PERRLA. ABSENT: scleral icterus Ear exam: PRESENT: normal external ear exam Mouth exam: PRESENT: moist Throat exam: ABSENT: tonsillar exudate Neck exam: ABSENT: tracheal deviation Respiratory exam: PRESENT: symmetrical, unlabored. ABSENT: crackles Cardiovascular exam: PRESENT: RRR, systolic murmur GI/Abdominal exam: PRESENT: normal bowel sounds, soft. ABSENT: tenderness Rectal exam: PRESENT: deferred Musculoskeletal exam: PRESENT: normal inspection Neurological exam: PRESENT: alert, awake, oriented to person, oriented to place Psychiatric exam: PRESENT: appropriate affect Skin exam: ABSENT: jaundice, petechiae Assessment & Plan - Diagnosis (1) Acute upper GI bleed Is this a current diagnosis for this admission?: Yes Plan: Due to portal gastropathy. Clear liquid diet, monitor closely. Monitor hemoglobin. Dr. Barajsa will continue to follow the patient. Octreotide gtt. IV Protonix (2) Portal hypertensive gastropathy Is this a current diagnosis for this admission?: Yes Plan: As above (3) Hypertension Is this a current diagnosis for this admission?: Yes Plan: watch BP. Hold Imdur for now. (4) Hypothyroidism Is this a current diagnosis for this admission?: Yes Plan: Continue Synthroid (5) Cirrhosis of liver Qualifiers: Hepatic cirrhosis type: unspecified hepatic cirrhosis Ascites presence: without ascites Qualified Code(s): K74.60 - Unspecified cirrhosis of liver Is this a current diagnosis for this admission?: Yes Plan: Hold Lasix and Spirinolactone given GI bleed. (6) Hematemesis Is this a current diagnosis for this admission?: Yes Plan: above (7) CKD (chronic kidney disease) Is this a current diagnosis for this admission?: Yes Plan: Sees Dr. Farrell. Check renal function. (8) DVT prophylaxis Is this a current diagnosis for this admission?: Yes Plan: SCDs - Time Time Spent: Greater than 70 Minutes - Inpatient Certification Based on my medical assessment, after consideration of the patient's comorbidities, presenting symptoms, or acuity I expect that the services needed warrant INPATIENT care.: Yes I certify that my determination is in accordance with my understanding of Medicare's requirements for reasonable and necessary INPATIENT services [42 CFR 412.3e].: Yes Medical Necessity: Need For Continuous Telemetry Monitoring, Risk of Complication if Not Cared For in Hospital, Risk of Diagnosis Which Will Require Inpatient Eval/Care/Monitoring
[2018-04-19 18:47] LABS: HEMATOCRIT 22.1 % (37.9-51.0); MEAN CORPUSCULAR HEMOGLOBIN 32.7 pg (27.0-33.4); MEAN CORPUSCULAR HGB CONC 34.1 g/dL (32.0-36.0); MEAN CORPUSCULAR VOLUME 96 fl (80-97); RED BLOOD COUNT 2.31 10^6/uL (4.35-5.55); RED CELL DISTRIBUTION WIDTH 16.9 % (11.5-14.0)
[2018-04-19 18:51] LABS: HEMOGLOBIN 7.5 g/dL (13.5-17.0); WHITE BLOOD COUNT 2.6 10^3/uL (4.0-10.5)
[2018-04-19] MEDS ORDERED: OCTREOTIDE ACETATE INJ/PF 100 MCG/1 ML SDV IV ONE (19:00)
[2018-04-19] MEDS: LACTULOSE SYRUP 20 GM/30 ML UDCUP PO SCH ×2 (19:02→21:27)
[2018-04-19 19:04] LABS: ALANINE AMINOTRANSFERASE 26 U/L (21-72); ALBUMIN 2.6 g/dL (3.5-5.0); ALKALINE PHOSPHATASE 138 U/L (38-126); ANION GAP 7 (5-19); ASPARTATE AMINO TRANSFERASE 21 U/L (17-59); BILIRUBIN,DIRECT 0.4 mg/dL (0.0-0.4); BILIRUBIN,TOTAL 0.7 mg/dL (0.2-1.3); BLOOD UREA NITROGEN 55 mg/dL (7-20); CALCIUM 8.3 mg/dL (8.4-10.2); CARBON DIOXIDE 25 mmol/L (22-30); CHLORIDE 110 mmol/L (98-107); GLUCOSE 136 mg/dL (75-110); PHOSPHORUS 3.3 mg/dL (2.5-4.5); POTASSIUM 4.8 mmol/L (3.6-5.0); SODIUM 141.8 mmol/L (137-145); TOTAL PROTEIN 5.5 g/dL (6.3-8.2)
[2018-04-19 19:06] LABS: INTERNATIONAL RATION (INR) 1.36; PROTHROMBIN TIME 17.5 SEC (11.4-15.4)
[2018-04-19 19:08] LABS: PLATELET COUNT 30 10^3/uL (150-450)
--- NOTE | 2018-04-19 20:38 | EKG REPORT ---
SEVERITY:- ABNORMAL ECG - SINUS RHYTHM MULTIPLE VENTRICULAR PREMATURE COMPLEXES NONSPECIFIC T ABNORMALITIES, LATERAL LEADS : Confirmed by: Gal Vásquez MD 19-Apr-2018 20:38:24
[2018-04-19] MEDS: PANTOPRAZOLE SODIUM 40 MG VIAL IV SCH (21:25)
[2018-04-19] MEDS: FLUOXETINE HCL 20 MG CAPSULE PO SCH (21:27)
[2018-04-19] MEDS: CIPROFLOXACIN HCL 500 MG TABLET PO SCH (21:27)
[2018-04-19] MEDS: NORMAL SALINE 500 ML with OCTREOTIDE ACETATE 500 MCG IV PRN ×2 (21:53)
[2018-04-19] MEDS ORDERED: NADOLOL 40 MG TABLET PO SCH (22:00)
[2018-04-19 22:28] LABS: HEMATOCRIT 20.9 % (37.9-51.0); MEAN CORPUSCULAR HEMOGLOBIN 32.8 pg (27.0-33.4); MEAN CORPUSCULAR HGB CONC 34.5 g/dL (32.0-36.0); MEAN CORPUSCULAR VOLUME 95 fl (80-97); RED CELL DISTRIBUTION WIDTH 16.5 % (11.5-14.0); WHITE BLOOD COUNT 2.2 10^3/uL (4.0-10.5)
[2018-04-19 22:37] LABS: HEMOGLOBIN 7.2 g/dL (13.5-17.0); PLATELET COUNT 30 10^3/uL (150-450)
[2018-04-20] MEDS: LACTULOSE SYRUP 20 GM/30 ML UDCUP PO SCH ×7 (03:13→22:38)
[2018-04-20] MEDS: LEVOTHYROXINE SODIUM 0.112 MG TABLET PO SCH (05:46)
[2018-04-20] MEDS: LEVOTHYROXINE SODIUM 0.025 MG TABLET PO SCH (05:47)
[2018-04-20] MEDS ORDERED: (PENDING PHARMACY ID) (Levothyroxine Sodium [Synthroid] 137 MCG) PO SCH (07:00)
[2018-04-20 07:13] LABS: HEMATOCRIT 20.7 % (37.9-51.0); MEAN CORPUSCULAR HEMOGLOBIN 33.4 pg (27.0-33.4); MEAN CORPUSCULAR HGB CONC 35.4 g/dL (32.0-36.0); MEAN CORPUSCULAR VOLUME 94 fl (80-97); WHITE BLOOD COUNT 2.7 10^3/uL (4.0-10.5)
[2018-04-20 07:16] LABS: ANION GAP 6 (5-19); BLOOD UREA NITROGEN 55 mg/dL (7-20); CALCIUM 8.5 mg/dL (8.4-10.2); CARBON DIOXIDE 25 mmol/L (22-30); CHLORIDE 112 mmol/L (98-107); GLUCOSE 119 mg/dL (75-110); POTASSIUM 5.3 mmol/L (3.6-5.0)
[2018-04-20 08:14] LABS: PLATELET COUNT 31 10^3/uL (150-450)
[2018-04-20 08:21] LABS: HEMOGLOBIN 7.3 g/dL (13.5-17.0)
[2018-04-20] MEDS: PANTOPRAZOLE SODIUM 40 MG VIAL IV SCH ×2 (09:13→22:40)
[2018-04-20] MEDS: CIPROFLOXACIN HCL 500 MG TABLET PO SCH ×2 (09:13→22:40)
[2018-04-20 11:29] LABS: PATH REVIEW PATHOLOGIST REVIEWED
[2018-04-20 14:43] LABS: HEMATOCRIT 22.4 % (37.9-51.0); MEAN CORPUSCULAR HEMOGLOBIN 33.2 pg (27.0-33.4); MEAN CORPUSCULAR HGB CONC 34.7 g/dL (32.0-36.0); MEAN CORPUSCULAR VOLUME 96 fl (80-97); RED BLOOD COUNT 2.34 10^6/uL (4.35-5.55); RED CELL DISTRIBUTION WIDTH 16.4 % (11.5-14.0)
[2018-04-20 15:22] LABS: PLATELET COUNT 34 10^3/uL (150-450)
[2018-04-20 15:26] LABS: HEMOGLOBIN 7.8 g/dL (13.5-17.0)
--- NOTE | 2018-04-20 15:58 | PDOC PROGRESS REPORT ---
Subjective Progress Note for:: 04/20/18 Subjective:: Wants to eat, wants to go home. and son are present and appear very supportive and concerned. Reason For Visit: HEMATEMESIS (K92.0) Physical Exam Vital Signs: Temp Pulse Resp BP Pulse Ox 97.6 F 57 L 18 104/47 L 100 04/20/18 11:29 04/20/18 11:29 04/20/18 11:29 04/20/18 11:29 04/20/18 11:29 Intake & Output 04/19/18 04/20/18 04/21/18 05:59 05:59 05:59 Intake Total 910 100 Output Total 200 Balance 910 -100 Weight 197 lb 15.602 oz General appearance: PRESENT: no acute distress, hard of hearing Respiratory exam: PRESENT: clear to auscultation isabel Cardiovascular exam: PRESENT: RRR GI/Abdominal exam: PRESENT: soft. ABSENT: tenderness Extremities exam: ABSENT: pedal edema Neurological exam: PRESENT: alert, oriented to person, oriented to place Skin exam: PRESENT: warm Results Laboratory Results: 04/20/18 14:20 04/20/18 06:08 04/19/18 04/19/18 04/19/18 18:35 18:35 22:03 WBC 2.6 L D 2.2 L RBC 2.31 L 2.20 L Hgb 7.5 L 7.2 L Hct 22.1 L 20.9 L MCV 96 95 MCH 32.7 32.8 MCHC 34.1 34.5 RDW 16.9 H 16.5 H Plt Count 30 L* 30 L* Sodium 141.8 Potassium 4.8 Chloride 110 H Carbon Dioxide 25 Anion Gap 7 BUN 55 H Creatinine 2.32 H Est GFR ( Amer) 33 L Est GFR (Non-Af Amer) 27 L Glucose 136 H Calcium 8.3 L Phosphorus 3.3 Magnesium 2.1 Total Bilirubin 0.7 AST 21 ALT 26 Alkaline Phosphatase 138 H Total Protein 5.5 L Albumin 2.6 L 04/20/18 04/20/18 04/20/18 06:08 06:08 14:20 WBC 2.7 L 3.0 L RBC 2.20 L 2.34 L Hgb 7.3 L 7.8 L Hct 20.7 L 22.4 L MCV 94 96 MCH 33.4 33.2 MCHC 35.4 34.7 RDW 16.0 H 16.4 H Plt Count 31 L 34 L Sodium 143.0 Potassium 5.3 H Chloride 112 H Carbon Dioxide 25 Anion Gap 6 BUN 55 H Creatinine 2.17 H Est GFR ( Amer) 36 L Est GFR (Non-Af Amer) 30 L Glucose 119 H Calcium 8.5 Phosphorus Magnesium Total Bilirubin AST ALT Alkaline Phosphatase Total Protein Albumin 04/20/18 06:08 NT-Pro-B Natriuret Pep 3660 H Assessment & Plan - Diagnosis (1) Hematemesis Qualifiers: Nausea presence: with nausea Qualified Code(s): K92.0 - Hematemesis Is this a current diagnosis for this admission?: Yes Plan: Status post EGD with attempted ablation. Was started on octreotide and his hemoglobin has remained stable. GI has stopped his drip and started him on clear liquids. Continue to monitor closely (2) CKD (chronic kidney disease) Qualifiers: Chronic kidney disease stage: stage 3 (moderate) Qualified Code(s): N18.3 - Chronic kidney disease, stage 3 (moderate) Is this a current diagnosis for this admission?: Yes Plan: I will give him some gentle fluid overnight, and recheck in the morning. (3) Hypothyroidism Is this a current diagnosis for this admission?: Yes (4) Portal hypertensive gastropathy Is this a current diagnosis for this admission?: Yes (5) Thrombocytopenia Is this a current diagnosis for this admission?: Yes (6) Acute upper GI bleed Is this a current diagnosis for this admission?: Yes (7) Anemia Qualifiers: Anemia type: other cause Other causes of anemia: acute posthemorrhagic Qualified Code(s): D62 - Acute posthemorrhagic anemia Is this a current diagnosis for this admission?: Yes Plan: Acute on chronic. I will check an iron level. 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 Probably exacerbated by his recent GI bleed. I will check an ammonia in the morning. He is already on lactulose and having diarrhea.
[2018-04-20] MEDS: NORMAL SALINE 1000 ML 1,000 ML IV PRN (16:30)
[2018-04-20 17:42] LABS: ABSOLUTE RETICS # 0.087 10^6/uL (0.028-0.122); RETICULOCYTE COUNT (AUTO) 3.62 % (0.66-2.85)
[2018-04-20] MEDS: NORMAL SALINE 500 ML with OCTREOTIDE ACETATE 500 MCG IV PRN ×2 (18:18)
[2018-04-20] MEDS ORDERED: FUROSEMIDE INJ/PF 40 MG/4 ML SDV IV PRN (18:36)
[2018-04-20] MEDS ORDERED: HYDROCORTISONE 1% CREAM 28.35 GM TP PRN (19:30)
[2018-04-20] MEDS ORDERED: DIPHENHYDRAMINE HCL 50 MG/ML VIAL IV ONE (19:30)
[2018-04-20] MEDS: NADOLOL 40 MG TABLET PO SCH (22:41)
[2018-04-20] MEDS: FLUOXETINE HCL 20 MG CAPSULE PO SCH (22:41)
[2018-04-21] MEDS ORDERED: DIPHENHYDRAMINE HCL 50 MG/ML VIAL IV ONE (00:45)
[2018-04-21] MEDS ORDERED: FUROSEMIDE INJ/PF 40 MG/4 ML SDV IV PRN (01:08)
[2018-04-21] MEDS: LACTULOSE SYRUP 20 GM/30 ML UDCUP PO SCH ×5 (02:15→18:35)
[2018-04-21] MEDS: LEVOTHYROXINE SODIUM 0.025 MG TABLET PO SCH (05:32)
[2018-04-21] MEDS: LEVOTHYROXINE SODIUM 0.112 MG TABLET PO SCH (05:32)
[2018-04-21 07:17] LABS: ANION GAP 7 (5-19); BLOOD UREA NITROGEN 48 mg/dL (7-20); CALCIUM 8.6 mg/dL (8.4-10.2); CARBON DIOXIDE 24 mmol/L (22-30); CHLORIDE 112 mmol/L (98-107); GLUCOSE 93 mg/dL (75-110); IRON 174.6 ug/dL (49-181); SODIUM 142.6 mmol/L (137-145)
[2018-04-21 07:19] LABS: MEAN CORPUSCULAR HGB CONC 35.3 g/dL (32.0-36.0); MEAN CORPUSCULAR VOLUME 94 fl (80-97); RED CELL DISTRIBUTION WIDTH 16.7 % (11.5-14.0); WHITE BLOOD COUNT 4.3 10^3/uL (4.0-10.5)
[2018-04-21 08:29] LABS: HEMOGLOBIN 10.6 g/dL (13.5-17.0)
[2018-04-21 08:36] LABS: PLATELET COUNT 40 10^3/uL (150-450)
[2018-04-21] MEDS: PANTOPRAZOLE SODIUM 40 MG VIAL IV SCH (09:29)
[2018-04-21] MEDS: CIPROFLOXACIN HCL 500 MG TABLET PO SCH ×2 (09:29→22:27)
[2018-04-21] MEDS: NORMAL SALINE 1000 ML 1,000 ML IV PRN (10:41)
--- NOTE | 2018-04-21 14:00 | PDOC PROGRESS REPORT ---
Subjective Progress Note for:: 04/21/18 Subjective:: Slept the entire time I was in there. Long discussion with his . Diet is been advanced and has been tolerated thus far, octreotide still running No evidence of bleeding Reason For Visit: HEMATEMESIS (K92.0) Physical Exam Vital Signs: Temp Pulse Resp BP Pulse Ox 98.5 F 59 L 16 137/42 H 100 04/21/18 11:45 04/21/18 12:15 04/21/18 12:15 04/21/18 11:45 04/21/18 12:15 Intake & Output 04/20/18 04/21/18 04/22/18 05:59 05:59 05:59 Intake Total 910 2400 237 Output Total 525 Balance 910 1875 237 Weight 197 lb 15.602 oz 197 lb 8.547 oz General appearance: PRESENT: no acute distress Respiratory exam: PRESENT: clear to auscultation isabel Cardiovascular exam: PRESENT: RRR GI/Abdominal exam: PRESENT: soft Musculoskeletal exam: PRESENT: normal inspection Skin exam: PRESENT: dry, warm Results Laboratory Results: 04/21/18 06:40 04/21/18 06:40 04/20/18 04/20/18 04/20/18 14:20 14:20 19:07 WBC 3.0 L RBC 2.34 L Hgb 7.8 L Hct 22.4 L MCV 96 MCH 33.2 MCHC 34.7 RDW 16.4 H Plt Count 34 L Retic Count (auto) 3.62 H Absolute Retic 0.087 Sodium Potassium Chloride Carbon Dioxide Anion Gap BUN Creatinine Est GFR ( Amer) Est GFR (Non-Af Amer) Glucose Calcium Magnesium Iron Ammonia Blood Type O POSITIVE Antibody Screen NEGATIVE 04/21/18 04/21/18 04/21/18 06:40 06:40 06:40 WBC 4.3 RBC 3.20 L Hgb 10.6 L D Hct 30.0 L MCV 94 MCH 33.0 MCHC 35.3 RDW 16.7 H Plt Count 40 L Retic Count (auto) Absolute Retic Sodium 142.6 Potassium 5.0 Chloride 112 H Carbon Dioxide 24 Anion Gap 7 BUN 48 H Creatinine 2.07 H Est GFR ( Amer) 38 L Est GFR (Non-Af Amer) 31 L Glucose 93 Calcium 8.6 Magnesium 1.8 Iron 174.6 Ammonia 57.8 H Blood Type Antibody Screen 04/20/18 06:08 NT-Pro-B Natriuret Pep 3660 H Assessment & Plan - Diagnosis (1) Hematemesis Qualifiers: Nausea presence: with nausea Qualified Code(s): K92.0 - Hematemesis Is this a current diagnosis for this admission?: Yes Plan: Status post EGD with attempted ablation. Was started on octreotide and his hemoglobin has remained stable. He has been started on a regular diet and is tolerating so far. Continue to monitor closely (2) CKD (chronic kidney disease) Qualifiers: Chronic kidney disease stage: stage 3 (moderate) Qualified Code(s): N18.3 - Chronic kidney disease, stage 3 (moderate) Is this a current diagnosis for this admission?: Yes Plan: Baseline creatinine about 1.8. Continue gentle hydration. (3) Hypothyroidism Is this a current diagnosis for this admission?: Yes Plan: Continue home medications (4) Portal hypertensive gastropathy Is this a current diagnosis for this admission?: Yes Plan: Continue metal (5) Thrombocytopenia Is this a current diagnosis for this admission?: Yes Plan: A little below his baseline. Continue to monitor closely (6) Acute upper GI bleed Is this a current diagnosis for this admission?: Yes Plan: None since admission. (7) Anemia Qualifiers: Anemia type: other cause Other causes of anemia: acute posthemorrhagic Qualified Code(s): D62 - Acute posthemorrhagic anemia Is this a current diagnosis for this admission?: Yes Plan: Acute on chronic. Iron stores are adequate. Transfused 1 unit. 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 Probably exacerbated by his recent GI bleed. Ammonia is elevated. Continue to monitor. He is already on lactulose and having diarrhea.
[2018-04-21] MEDS: NORMAL SALINE 500 ML with OCTREOTIDE ACETATE 500 MCG IV PRN ×2 (15:23)
[2018-04-21] MEDS ORDERED: NORMAL SALINE 500 ML with OCTREOTIDE ACETATE 500 MCG IV PRN ×2 (17:25)
--- NOTE | 2018-04-21 19:09 | PDOC PROGRESS REPORT ---
Subjective Progress Note for:: 04/21/18 Subjective:: 77-year-old patient admitted on 04/19/2018 with GI bleeding from portal gastropathy. Has not had any more active bleeding since admission. His stools were yellow to brown yesterday and also today. His hemoglobin dropped from his usual 8-9 g to 7.2 for which I gave 2 units of blood on 04/20/2018. His hemoglobin was 10.6 this morning. His platelets remain low at 40. He does feel stronger. He was started on nadolol 20 mg on the day of admission but his heart rate went as low as 52. The nadolol dose was reduced to 10 mg with a heart rate between 53 and 56. He continues to receive octreotide at 25 mcg/hour Overall he is doing well. He has no complaints of abdominal pain. He is tolerating a diet. Reason For Visit: HEMATEMESIS (K92.0) Physical Exam Vital Signs: Temp Pulse Resp BP Pulse Ox 98.1 F 56 L 18 124/34 L 100 04/21/18 15:10 04/21/18 16:26 04/21/18 16:26 04/21/18 15:10 04/21/18 16:26 Intake & Output 04/20/18 04/21/18 04/22/18 06:59 06:59 06:59 Intake Total 910 2400 711 Output Total 525 Balance 910 1875 711 Weight 89.8 kg 89.6 kg Exam: General: Patient is alert and looks well. HEENT: There is some pallor but no jaundice. PERRLA. Oropharynx normal Respiratory: No chest deformity. No respiratory distress. Chest wall palpitation was unremarkable. Breath sounds were normal Cardiovascular: Heart sounds 1 and 2 normal with no murmurs. Abdominal: Not distended. Soft and nontender. Liver and spleen not palpable. No ascites demonstrated. Bowel sounds active. Rectal examination was deferred. Extremities: No edema Neurological: Alert and oriented x4. Grossly nonfocal. Normal speech Skin: No significant rash Psychological: Normal affect Results Laboratory Results: 04/21/18 06:40 04/21/18 06:40 04/20/18 04/21/18 04/21/18 19:07 06:40 06:40 WBC 4.3 RBC 3.20 L Hgb 10.6 L D Hct 30.0 L MCV 94 MCH 33.0 MCHC 35.3 RDW 16.7 H Plt Count 40 L Sodium 142.6 Potassium 5.0 Chloride 112 H Carbon Dioxide 24 Anion Gap 7 BUN 48 H Creatinine 2.07 H Est GFR ( Amer) 38 L Est GFR (Non-Af Amer) 31 L Glucose 93 Calcium 8.6 Magnesium 1.8 Iron 174.6 Ammonia Blood Type O POSITIVE Antibody Screen NEGATIVE 04/21/18 06:40 WBC RBC Hgb Hct MCV MCH MCHC RDW Plt Count Sodium Potassium Chloride Carbon Dioxide Anion Gap BUN Creatinine Est GFR ( Amer) Est GFR (Non-Af Amer) Glucose Calcium Magnesium Iron Ammonia 57.8 H Blood Type Antibody Screen 04/20/18 06:08 NT-Pro-B Natriuret Pep 3660 H Assessment & Plan - Diagnosis (1) Acute upper GI bleed Is this a current diagnosis for this admission?: Yes Plan: This has resolved. I reduce his octreotide to 10 mcg an hour and this will be discontinued by tomorrow morning. He can be discharged from the hospital in the morning from GI standpoint. He should continue with nadolol 10 mg daily and I will follow this up as outpatient (2) Portal hypertensive gastropathy Is this a current diagnosis for this admission?: Yes Plan: Continue nadolol (3) Hematemesis Qualifiers: Nausea presence: with nausea Qualified Code(s): K92.0 - Hematemesis Is this a current diagnosis for this admission?: Yes (4) Thrombocytopenia Is this a current diagnosis for this admission?: Yes (5) Cirrhosis of liver Qualifiers: Hepatic cirrhosis type: unspecified hepatic cirrhosis Ascites presence: without ascites Qualified Code(s): K74.60 - Unspecified cirrhosis of liver Is this a current diagnosis for this admission?: Yes (6) Anemia Qualifiers: Anemia type: other cause Other causes of anemia: acute posthemorrhagic Qualified Code(s): D62 - Acute posthemorrhagic anemia Is this a current diagnosis for this admission?: Yes Plan: His hemoglobin is increased to 10.6 with 2 units of blood transfusion. I will obtain iron studies, B12 and folate on his blood sample from the day of admission and replace as needed.
[2018-04-21 19:54] LABS: ABSOLUTE RETICS # 0.101 10^6/uL (0.028-0.122); RETICULOCYTE COUNT (AUTO) 3.19 % (0.66-2.85)
[2018-04-21 20:15] LABS: IRON(TIBC) 168.9 ug/dL (49-181)
[2018-04-21] MEDS: NADOLOL 40 MG TABLET PO SCH (22:26)
[2018-04-21] MEDS: FLUOXETINE HCL 20 MG CAPSULE PO SCH (22:27)
[2018-04-22 05:51] LABS: HEMATOCRIT 26.4 % (37.9-51.0); HEMOGLOBIN 9.4 g/dL (13.5-17.0); MEAN CORPUSCULAR HEMOGLOBIN 33.2 pg (27.0-33.4); MEAN CORPUSCULAR HGB CONC 35.6 g/dL (32.0-36.0); MEAN CORPUSCULAR VOLUME 93 fl (80-97); RED BLOOD COUNT 2.82 10^6/uL (4.35-5.55); RED CELL DISTRIBUTION WIDTH 16.7 % (11.5-14.0); WHITE BLOOD COUNT 3.8 10^3/uL (4.0-10.5)
[2018-04-22 06:01] LABS: BLOOD UREA NITROGEN 47 mg/dL (7-20); CALCIUM 8.2 mg/dL (8.4-10.2); GLUCOSE 96 mg/dL (75-110); POTASSIUM 5.8 mmol/L (3.6-5.0)
[2018-04-22 06:06] LABS: CARBON DIOXIDE 26 mmol/L (22-30); CHLORIDE 113 mmol/L (98-107); SODIUM 142.5 mmol/L (137-145)
[2018-04-22 06:12] LABS: ANION GAP 4 (5-19)
[2018-04-22 06:18] LABS: PLATELET COUNT 34 10^3/uL (150-450)
[2018-04-22] MEDS: LEVOTHYROXINE SODIUM 0.025 MG TABLET PO SCH (06:20)
[2018-04-22] MEDS: LEVOTHYROXINE SODIUM 0.112 MG TABLET PO SCH (06:20)
[2018-04-22] MEDS ORDERED: LANSOPRAZOLE 30 MG TAB.RAP.DR PO SCH (08:00)
[2018-04-22 08:42] VITALS: BP 118/76
[2018-04-22] MEDS: CIPROFLOXACIN HCL 500 MG TABLET PO SCH (09:17)
[2018-04-22] MEDS ORDERED: LACTULOSE SYRUP 20 GM/30 ML UDCUP PO SCH (10:00)
--- NOTE | 2018-04-22 16:23 | PDOC DISCHARGE SUMMARY ---
General - Admit/Disc Date/PCP Discharge Date: 04/22/18 - Discharge Diagnosis (1) Hematemesis Is this a current diagnosis for this admission?: Yes Summary: Due to portal gastropathy. An attempt was made to cauterize the lesions, which were diffuse. That was unsuccessful, so he was treated with octreotide and bowel rest. Hemoglobins have remained stable, octreotide is been stopped, and his diet is been advanced. He has had no further nausea, vomiting, hematemesis , or hematochezia. (2) CKD (chronic kidney disease) Is this a current diagnosis for this admission?: Yes Summary: Stable (3) Hypothyroidism Is this a current diagnosis for this admission?: Yes Summary: Stable (4) Portal hypertensive gastropathy Is this a current diagnosis for this admission?: Yes (5) Thrombocytopenia Is this a current diagnosis for this admission?: Yes Summary: Chronic, stable (6) Acute upper GI bleed Is this a current diagnosis for this admission?: Yes (7) Anemia Is this a current diagnosis for this admission?: Yes Summary: He was transfused with 2 units of packed cells, and his hemoglobin has remained relatively stable since then. His iron was 169 (normal). 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 I suspect this was exacerbated by his GI bleed. It appears to have improved. His feels that his current mental state is back to normal. - Additional Information Resuscitation Status: Do Not Resuscitate Discharge Diet: Regular Discharge Activity: Activity As Tolerated Prescriptions: Ciprofloxacin HCl [Cipro 500 mg Tablet] 500 mg PO Q12 #8 tablet Lactulose [Cephulac Syrup 20 gm/30 ml Udcup] 20 gm PO TID #900 ml Nadolol [Corgard] 10 mg PO QHS #30 tablet Home Medications: Cyanocobalamin (Vitamin B-12) [Vitamin B-12 1000 mcg Tablet] 1,000 mcg PO QHS Epoetin Chris [Procrit] 10,000 unit IJ ASDIR PRN 12/15/17 Ferrous Sulfate [Iron] 325 mg PO QHS 12/15/17 Fluoxetine HCl [Prozac 20 mg Capsule] 20 mg PO QHS 12/15/17 Levothyroxine Sodium [Synthroid] 137 mcg PO QHS 12/15/17 Furosemide [Lasix 40 mg Tablet] 40 mg PO QAM 04/19/18 Pantoprazole Sodium [Protonix] 40 mg PO DAILY 04/19/18 Ciprofloxacin HCl [Cipro 500 mg Tablet] 500 mg PO Q12 #8 tablet 04/22/18 Lactulose [Cephulac Syrup 20 gm/30 ml Udcup] 20 gm PO TID #900 ml 04/22/18 Nadolol [Corgard] 10 mg PO QHS #30 tablet 04/22/18 History of Present Illness Patient complains of: Hematemesis History of Present Illness: GABI GONG is a 77 year old male who developed melena and hematemesis 4 days ago and this was ongoing. the patient has had reduced appetite and weakness. He saw his yard labor supervisor Dr. Barajas on Wednesday, and had an endoscopy done today. Dr. Barajas called the hospitalist production broacher to say that he found no esophageal varices, but oozing portal gastropathy and recommended admission, Octreotide gtt and IV Protonix. The patient denies nausea or abdominal pain Hospital Course Hospital Course: He was treated with IV Protonix, octreotide drip, kept on bowel rest, and followed by gastroenterology throughout his stay. He received 2 units of packed cells, hemoglobin was followed closely and has remained relatively stable since. He was somewhat dehydrated on presentation and has been gently rehydrated. He became more confused, so we increased his lactulose, and have followed his ammonia. Mental status appears to have returned to baseline. Platelet count is quite low but has been stable. This is a chronic condition for him. His diet was advanced, and the octreotide drip was stopped. He is now tolerating a regular diet and is rather anxious to go home. Physical Exam Vital Signs: Temp Pulse Resp BP Pulse Ox 97.7 F 47 L 16 118/76 100 04/22/18 11:21 04/22/18 11:21 04/22/18 11:21 04/22/18 11:21 04/22/18 11:21 Intake & Output 04/21/18 04/22/18 04/23/18 05:59 05:59 05:59 Intake Total 2400 2131 Output Total 525 Balance 1875 2131 Weight 197 lb 8.547 oz 198 lb 6.656 oz General appearance: PRESENT: no acute distress, cooperative Respiratory exam: PRESENT: clear to auscultation isabel Cardiovascular exam: PRESENT: RRR GI/Abdominal exam: PRESENT: soft Extremities exam: ABSENT: +1 edema Musculoskeletal exam: PRESENT: normal inspection Neurological exam: PRESENT: alert Psychiatric exam: PRESENT: appropriate affect Skin exam: PRESENT: warm, other - Sallow Results Laboratory Results: 04/22/18 05:04 04/22/18 05:04 04/21/18 04/21/18 04/22/18 06:40 06:40 05:04 WBC 3.8 L RBC 2.82 L Hgb 9.4 L Hct 26.4 L MCV 93 MCH 33.2 MCHC 35.6 RDW 16.7 H Plt Count 34 L Retic Count (auto) 3.19 H Absolute Retic 0.101 Sodium Potassium Chloride Carbon Dioxide Anion Gap BUN Creatinine Est GFR ( Amer) Est GFR (Non-Af Amer) Glucose Calcium Iron 168.9 TIBC 253 % Saturation 67 Ferritin 115.00 Ammonia Vitamin B12 933.0 H Folate 11.20 04/22/18 04/22/18 05:04 05:04 WBC RBC Hgb Hct MCV MCH MCHC RDW Plt Count Retic Count (auto) Absolute Retic Sodium 142.5 Potassium 5.8 H Chloride 113 H Carbon Dioxide 26 Anion Gap 4 L BUN 47 H Creatinine 1.97 H Est GFR ( Amer) 40 L Est GFR (Non-Af Amer) 33 L Glucose 96 Calcium 8.2 L Iron TIBC % Saturation Ferritin Ammonia 44.1 H Vitamin B12 Folate 04/20/18 06:08 NT-Pro-B Natriuret Pep 3660 H Qualifiers - * PATIENT BEING DISCHARGED WITH ANY OF THE FOLLOWING DIAGNOSIS: No
[2018-04-26 14:38] LABS: FOLATE HEMOLYSATE 374.4 ng/mL (Not Estab.)
== END 2018-04-22 12:18 | disposition home health service (06) | DRG 377 ==
LOC: END 15:15 → EDSTATUS 16:00 → 5 17:35 → END 17:35 → 5 18:17 → 3S 22:39 → 5 22:39 → END 04-22 12:18 → 3S 04-22 12:18
PROVIDERS: ADMIT Internal Medicine; ATTEND Internal Medicine Gastroenterology
PROC: 3E0F73Z Introduction of Anti-inflammatory into Respiratory Tract, Via Natural or Artificial Opening (ICD-10-PCS; 2018-04-19)
PROC: 0W3P8ZZ Control Bleeding in Gastrointestinal Tract, Via Natural or Artificial Opening Endoscopic (ICD-10-PCS; principal; 2018-04-19 16:00)
PROC: 30233N1 Transfusion of Nonautologous Red Blood Cells into Peripheral Vein, Percutaneous Approach (ICD-10-PCS; 2018-04-20)
DX: K92.2 Gastrointestinal hemorrhage, unspecified (principal); I81 Portal vein thrombosis; K76.6 Portal hypertension; D62 Acute posthemorrhagic anemia; I12.9 Hypertensive chronic kidney disease with stage 1 through stage 4 chronic kidney disease, or unspecified chronic kidney disease; I25.2 Old myocardial infarction; Z66 Do not resuscitate; K72.90 Hepatic failure, unspecified without coma; D69.6 Thrombocytopenia, unspecified; I25.10 Atherosclerotic heart disease of native coronary artery without angina pectoris; E78.5 Hyperlipidemia, unspecified; E03.9 Hypothyroidism, unspecified; Z86.73 Personal history of transient ischemic attack (TIA), and cerebral infarction without residual deficits; Z79.899 Other long term (current) drug therapy; F32.9 Major depressive disorder, single episode, unspecified; F03.90 Unspecified dementia, unspecified severity, without behavioral disturbance, psychotic disturbance, mood disturbance, and anxiety; M40.209 Unspecified kyphosis, site unspecified; K74.69 Other cirrhosis of liver; R58 Hemorrhage, not elsewhere classified; N18.3 Chronic kidney disease, stage 3 (moderate); K92.1 Melena; K92.0 Hematemesis; Z95.1 Presence of aortocoronary bypass graft; Z90.49 Acquired absence of other specified parts of digestive tract; Z83.3 Family history of diabetes mellitus; Z82.49 Family history of ischemic heart disease and other diseases of the circulatory system
CPT/HCPCS: 36415; 36430; 43255; 80048; 80076; 82140; 82607; 82728; 82746; 82747; 83540; 83550; 83735; 83880; 84100; 85027; 85045; 85610; 86850; 86900; 86901; 86920; 93005; 93010; J0171; J1200; J1610; J1940; J2250; J2310; J2354; J3010; J3490; J7030; J7040; P9016; S0164

== ENCOUNTER → 2018-06-21 | Outpatient (CLI) | payer MEDICARE, OTHER ==
[2018-06-21 12:39] LABS: INTERNATIONAL RATION (INR) 1.22
[2018-06-21 12:41] LABS: HEMATOCRIT 32.1 % (37.9-51.0); HEMOGLOBIN 11.1 g/dL (13.5-17.0); MEAN CORPUSCULAR HEMOGLOBIN 32.5 pg (27.0-33.4); MEAN CORPUSCULAR HGB CONC 34.4 g/dL (32.0-36.0); MEAN CORPUSCULAR VOLUME 95 fl (80-97); RED CELL DISTRIBUTION WIDTH 15.2 % (11.5-14.0); WHITE BLOOD COUNT 4.5 10^3/uL (4.0-10.5)
[2018-06-21 12:59] LABS: ALANINE AMINOTRANSFERASE 22 U/L (21-72); ALBUMIN 3.1 g/dL (3.5-5.0); ALKALINE PHOSPHATASE 88 U/L (38-126); ANION GAP 11 (5-19); ASPARTATE AMINO TRANSFERASE 23 U/L (17-59); BILIRUBIN,DIRECT 0.3 mg/dL (0.0-0.4); BILIRUBIN,TOTAL 1.4 mg/dL (0.2-1.3); BLOOD UREA NITROGEN 41 mg/dL (7-20); CALCIUM 8.9 mg/dL (8.4-10.2); CARBON DIOXIDE 24 mmol/L (22-30); CHLORIDE 109 mmol/L (98-107); GLUCOSE 128 mg/dL (75-110); POTASSIUM 5.1 mmol/L (3.6-5.0); SODIUM 143.8 mmol/L (137-145); TOTAL PROTEIN 6.5 g/dL (6.3-8.2)
[2018-06-21 13:27] LABS: PLATELET COUNT 58 10^3/uL (150-450)
== END ==
LOC: OD 11:15
PROVIDERS: ATTEND Physician Assistant Surgical
DX: K74.69 Other cirrhosis of liver (principal); D69.6 Thrombocytopenia, unspecified
CPT/HCPCS: 36415; 80053; 85027; 85610

== ENCOUNTER → 2018-06-27 | Outpatient (CLI) | payer MEDICARE, OTHER | LOC: OD 09:19 | PROVIDERS: ATTEND Internal Medicine Nephrology | DX: E87.5 Hyperkalemia (principal) | CPT/HCPCS: 36415; 84132 ==

== ENCOUNTER → 2018-06-30 | Outpatient (CLI) | payer MEDICARE, OTHER | LOC: OD 10:59 | PROVIDERS: ATTEND Internal Medicine Nephrology | DX: E87.5 Hyperkalemia (principal) | CPT/HCPCS: 36415; 84132 ==

== ENCOUNTER → 2018-07-13 | Outpatient (CLI) | payer MEDICARE, OTHER ==
[2018-07-13 08:29] LABS: ABSOLUTE EOSINOPHILS # (AUTO) 0.2 10^3/uL (0.0-0.6); ABSOLUTE LYMPHOCYTES (AUTO) 0.3 10^3/uL (0.5-4.7); ABSOLUTE MONOCYTES (AUTO) 0.3 10^3/uL (0.1-1.4); ABSOLUTE NEUT (AUTO) 1.7 10^3/uL (1.7-8.2); BASOPHILS % (AUTO) 0.7 % (0-2); EOSINOPHILS % (AUTO) 6.6 % (0-6); HEMATOCRIT 25.8 % (37.9-51.0); HEMOGLOBIN 8.9 g/dL (13.5-17.0); LYMPHOCYTES % (AUTO) 13.8 % (13-45); MEAN CORPUSCULAR HEMOGLOBIN 32.4 pg (27.0-33.4); MEAN CORPUSCULAR HGB CONC 34.5 g/dL (32.0-36.0); MEAN CORPUSCULAR VOLUME 94 fl (80-97); MONOCYTES % (AUTO) 10.5 % (3-13); RED BLOOD COUNT 2.75 10^6/uL (4.35-5.55); RED CELL DISTRIBUTION WIDTH 14.8 % (11.5-14.0); SEGMENTED NEUTROPHILS % (AUTO) 68.4 % (42-78); TOTAL CELLS COUNTED % (AUTO) 100 %; WHITE BLOOD COUNT 2.5 10^3/uL (4.0-10.5)
[2018-07-13 08:42] LABS: ALANINE AMINOTRANSFERASE 27 U/L (21-72); ALBUMIN 2.7 g/dL (3.5-5.0); ALKALINE PHOSPHATASE 111 U/L (38-126); ANION GAP 7 (5-19); ASPARTATE AMINO TRANSFERASE 25 U/L (17-59); BILIRUBIN,DIRECT 0.3 mg/dL (0.0-0.4); BILIRUBIN,TOTAL 0.8 mg/dL (0.2-1.3); BLOOD UREA NITROGEN 30 mg/dL (7-20); CALCIUM 8.4 mg/dL (8.4-10.2); CARBON DIOXIDE 27 mmol/L (22-30); CHLORIDE 111 mmol/L (98-107); GLUCOSE 88 mg/dL (75-110); POTASSIUM 4.1 mmol/L (3.6-5.0); SODIUM 144.7 mmol/L (137-145); TOTAL PROTEIN 5.8 g/dL (6.3-8.2)
[2018-07-13 08:43] LABS: PHOSPHORUS 3.5 mg/dL (2.5-4.5)
[2018-07-13 08:56] LABS: PLATELET COUNT 34 10^3/uL (150-450)
== END ==
LOC: OD 07:41
PROVIDERS: ATTEND Internal Medicine Nephrology
DX: N18.3 Chronic kidney disease, stage 3 (moderate) (principal); E11.9 Type 2 diabetes mellitus without complications
CPT/HCPCS: 36415; 80053; 83970; 84100; 85025

== ENCOUNTER → 2018-09-02 | Outpatient (CLI) | payer MEDICARE, OTHER ==
[2018-09-02 09:56] LABS: INTERNATIONAL RATION (INR) 1.22; PROTHROMBIN TIME 16.1 SEC (11.4-15.4)
[2018-09-02 09:58] LABS: ABSOLUTE EOSINOPHILS # (AUTO) 0.2 10^3/uL (0.0-0.6); ABSOLUTE LYMPHOCYTES (AUTO) 0.4 10^3/uL (0.5-4.7); ABSOLUTE MONOCYTES (AUTO) 0.3 10^3/uL (0.1-1.4); ABSOLUTE NEUT (AUTO) 2.9 10^3/uL (1.7-8.2); EOSINOPHILS % (AUTO) 5.4 % (0-6); HEMOGLOBIN 8.6 g/dL (13.5-17.0); LYMPHOCYTES % (AUTO) 10.3 % (13-45); MEAN CORPUSCULAR HEMOGLOBIN 33.5 pg (27.0-33.4); MEAN CORPUSCULAR HGB CONC 34.3 g/dL (32.0-36.0); MEAN CORPUSCULAR VOLUME 98 fl (80-97); MONOCYTES % (AUTO) 8.4 % (3-13); RED BLOOD COUNT 2.56 10^6/uL (4.35-5.55); RED CELL DISTRIBUTION WIDTH 17.2 % (11.5-14.0); SEGMENTED NEUTROPHILS % (AUTO) 74.9 % (42-78); TOTAL CELLS COUNTED % (AUTO) 100 %; WHITE BLOOD COUNT 3.9 10^3/uL (4.0-10.5)
[2018-09-02 10:15] LABS: ALANINE AMINOTRANSFERASE 23 U/L (21-72); ALBUMIN 2.7 g/dL (3.5-5.0); ALKALINE PHOSPHATASE 115 U/L (38-126); ANION GAP 5 (5-19); ASPARTATE AMINO TRANSFERASE 27 U/L (17-59); BILIRUBIN,DIRECT 0.5 mg/dL (0.0-0.4); BILIRUBIN,TOTAL 0.9 mg/dL (0.2-1.3); BLOOD UREA NITROGEN 31 mg/dL (7-20); CALCIUM 8.5 mg/dL (8.4-10.2); CARBON DIOXIDE 24 mmol/L (22-30); CHLORIDE 112 mmol/L (98-107); GLUCOSE 97 mg/dL (75-110); POTASSIUM 4.5 mmol/L (3.6-5.0); SODIUM 141.2 mmol/L (137-145); TOTAL PROTEIN 5.9 g/dL (6.3-8.2)
[2018-09-02 10:21] LABS: BLOOD UREA NITROGEN 31 mg/dL (7-20); CALCIUM 8.5 mg/dL (8.4-10.2); CHLORIDE 112 mmol/L (98-107); GLUCOSE 97 mg/dL (75-110); POTASSIUM 4.5 mmol/L (3.6-5.0)
[2018-09-02 10:22] LABS: ANION GAP 5 (5-19); CARBON DIOXIDE 24 mmol/L (22-30); SODIUM 141.2 mmol/L (137-145)
[2018-09-02 10:27] LABS: PLATELET COUNT 47 10^3/uL (150-450)
[2018-09-02 10:29] LABS: HEMOGLOBIN 8.6 g/dL (13.5-17.0); MEAN CORPUSCULAR HEMOGLOBIN 33.5 pg (27.0-33.4); MEAN CORPUSCULAR HGB CONC 34.3 g/dL (32.0-36.0); MEAN CORPUSCULAR VOLUME 98 fl (80-97); PLATELET COUNT 47 10^3/uL (150-450); RED BLOOD COUNT 2.56 10^6/uL (4.35-5.55); RED CELL DISTRIBUTION WIDTH 17.2 % (11.5-14.0); WHITE BLOOD COUNT 3.9 10^3/uL (4.0-10.5)
== END ==
LOC: OD 09:08
PROVIDERS: ATTEND Internal Medicine Nephrology
DX: E11.22 Type 2 diabetes mellitus with diabetic chronic kidney disease (principal); N18.3 Chronic kidney disease, stage 3 (moderate); E87.5 Hyperkalemia; D64.9 Anemia, unspecified; K74.69 Other cirrhosis of liver; D63.8 Anemia in other chronic diseases classified elsewhere; D69.6 Thrombocytopenia, unspecified
CPT/HCPCS: 36415; 80048; 80076; 83735; 85025; 85027; 85610

== ENCOUNTER → 2018-10-04 | Outpatient (CLI) | payer MEDICARE, OTHER ==
[2018-10-04 08:26] LABS: HEMATOCRIT 27.1 % (37.9-51.0); HEMOGLOBIN 9.3 g/dL (13.5-17.0); MEAN CORPUSCULAR HEMOGLOBIN 32.4 pg (27.0-33.4); MEAN CORPUSCULAR HGB CONC 34.2 g/dL (32.0-36.0); MEAN CORPUSCULAR VOLUME 95 fl (80-97); RED BLOOD COUNT 2.86 10^6/uL (4.35-5.55); RED CELL DISTRIBUTION WIDTH 14.7 % (11.5-14.0); WHITE BLOOD COUNT 2.6 10^3/uL (4.0-10.5)
[2018-10-04 09:13] LABS: ANION GAP 8 (5-19); BLOOD UREA NITROGEN 22 mg/dL (7-20); CALCIUM 8.5 mg/dL (8.4-10.2); CARBON DIOXIDE 24 mmol/L (22-30); CHLORIDE 110 mmol/L (98-107); GLUCOSE 92 mg/dL (75-110); POTASSIUM 4.6 mmol/L (3.6-5.0); SODIUM 141.9 mmol/L (137-145)
[2018-10-04 09:29] LABS: PLATELET COUNT 43 10^3/uL (150-450)
== END ==
LOC: OD 07:32
PROVIDERS: ATTEND Internal Medicine Nephrology
DX: E11.22 Type 2 diabetes mellitus with diabetic chronic kidney disease (principal); N18.3 Chronic kidney disease, stage 3 (moderate)
CPT/HCPCS: 36415; 80048; 83735; 85027

== ENCOUNTER → 2019-01-06 | Outpatient (CLI) | payer MEDICARE, OTHER ==
[2019-01-06 08:01] LABS: HEMOGLOBIN 11.4 g/dL (13.5-17.0); MEAN CORPUSCULAR HEMOGLOBIN 32.2 pg (27.0-33.4); MEAN CORPUSCULAR HGB CONC 34.7 g/dL (32.0-36.0); MEAN CORPUSCULAR VOLUME 93 fl (80-97); RED BLOOD COUNT 3.56 10^6/uL (4.35-5.55); RED CELL DISTRIBUTION WIDTH 17.4 % (11.5-14.0); WHITE BLOOD COUNT 3.3 10^3/uL (4.0-10.5)
[2019-01-06 08:19] LABS: ALANINE AMINOTRANSFERASE 16 U/L (21-72); ALKALINE PHOSPHATASE 134 U/L (38-126); ANION GAP 7 (5-19); ASPARTATE AMINO TRANSFERASE 27 U/L (17-59); BILIRUBIN,DIRECT 0.4 mg/dL (0.0-0.4); BILIRUBIN,TOTAL 1.2 mg/dL (0.2-1.3); BLOOD UREA NITROGEN 32 mg/dL (7-20); CALCIUM 8.3 mg/dL (8.4-10.2); CARBON DIOXIDE 24 mmol/L (22-30); CHLORIDE 112 mmol/L (98-107); GLUCOSE 85 mg/dL (75-110); SODIUM 142.5 mmol/L (137-145); TOTAL PROTEIN 6.2 g/dL (6.3-8.2)
[2019-01-06 08:29] LABS: INTERNATIONAL RATION (INR) 1.24; PROTHROMBIN TIME 16.2 SEC (11.4-15.4)
[2019-01-06 08:30] LABS: PARTIAL THROMBOPLASTIN TIME 40.8 SEC (23.5-35.8)
[2019-01-06 08:33] LABS: APPEARANCE,URINE CLEAR; BILIRUBIN,URINE NEGATIVE (NEGATIVE); COLOR,URINE YELLOW; GLUCOSE, URINE NEGATIVE (NEGATIVE); KETONES,URINE NEGATIVE (NEGATIVE); LEUKOCYTE ESTERASE,URINE NEGATIVE (NEGATIVE); NITRITE,URINE NEGATIVE (NEGATIVE); PROTEIN,URINE 30 mg/dL (NEGATIVE); URINE SPECIFIC GRAVITY 1.017; UROBILINOGEN,URINE NEGATIVE mg/dL (<2.0)
[2019-01-06 08:39] LABS: PLATELET COUNT 41 10^3/uL (150-450)
[2019-01-06 08:40] LABS: HEMOGLOBIN 11.4 g/dL (13.5-17.0); MEAN CORPUSCULAR HEMOGLOBIN 32.2 pg (27.0-33.4); MEAN CORPUSCULAR HGB CONC 34.7 g/dL (32.0-36.0); MEAN CORPUSCULAR VOLUME 93 fl (80-97); RED BLOOD COUNT 3.56 10^6/uL (4.35-5.55); RED CELL DISTRIBUTION WIDTH 17.4 % (11.5-14.0); WHITE BLOOD COUNT 3.3 10^3/uL (4.0-10.5)
[2019-01-06 08:41] LABS: PLATELET COUNT 41 10^3/uL (150-450)
[2019-01-06 09:02] LABS: ANION GAP 7 (5-19); BLOOD UREA NITROGEN 32 mg/dL (7-20); CALCIUM 8.3 mg/dL (8.4-10.2); CARBON DIOXIDE 24 mmol/L (22-30); CHLORIDE 112 mmol/L (98-107); GLUCOSE 85 mg/dL (75-110); PHOSPHORUS 2.5 mg/dL (2.5-4.5); SODIUM 142.5 mmol/L (137-145)
== END ==
LOC: OD 07:23
PROVIDERS: ATTEND Physician Assistant Medical
DX: E11.22 Type 2 diabetes mellitus with diabetic chronic kidney disease (principal); N18.4 Chronic kidney disease, stage 4 (severe); D64.9 Anemia, unspecified; E87.5 Hyperkalemia; D69.6 Thrombocytopenia, unspecified; K74.69 Other cirrhosis of liver; D63.8 Anemia in other chronic diseases classified elsewhere; R60.0 Localized edema; R16.0 Hepatomegaly, not elsewhere classified
CPT/HCPCS: 36415; 80048; 80076; 81001; 83970; 84100; 85027; 85610; 85730

== ENCOUNTER → 2019-04-04 | Outpatient (CLI) | payer MEDICARE, OTHER ==
[2019-04-04 15:53] LABS: ABSOLUTE EOSINOPHILS # (AUTO) 0.2 10^3/uL (0.0-0.6); ABSOLUTE LYMPHOCYTES (AUTO) 0.5 10^3/uL (0.5-4.7); ABSOLUTE MONOCYTES (AUTO) 0.2 10^3/uL (0.1-1.4); ABSOLUTE NEUT (AUTO) 2.4 10^3/uL (1.7-8.2); EOSINOPHILS % (AUTO) 7.1 % (0-6); HEMATOCRIT 31.9 % (37.9-51.0); HEMOGLOBIN 10.9 g/dL (13.5-17.0); MEAN CORPUSCULAR HGB CONC 34.2 g/dL (32.0-36.0); MEAN CORPUSCULAR VOLUME 99 fl (80-97); MONOCYTES % (AUTO) 6.7 % (3-13); RED BLOOD COUNT 3.22 10^6/uL (4.35-5.55); SEGMENTED NEUTROPHILS % (AUTO) 71.2 % (42-78); TOTAL CELLS COUNTED % (AUTO) 100 %; WHITE BLOOD COUNT 3.4 10^3/uL (4.0-10.5)
[2019-04-04 15:54] LABS: INTERNATIONAL RATION (INR) 1.24; PROTHROMBIN TIME 16.2 SEC (11.4-15.4)
[2019-04-04 15:55] LABS: APPEARANCE,URINE CLEAR; BILIRUBIN,URINE NEGATIVE (NEGATIVE); COLOR,URINE STRAW; GLUCOSE, URINE NEGATIVE (NEGATIVE); KETONES,URINE NEGATIVE (NEGATIVE); LEUKOCYTE ESTERASE,URINE NEGATIVE (NEGATIVE); NITRITE,URINE NEGATIVE (NEGATIVE); PROTEIN,URINE NEGATIVE (NEGATIVE); URINE SPECIFIC GRAVITY 1.009; UROBILINOGEN,URINE NEGATIVE mg/dL (<2.0)
[2019-04-04 16:13] LABS: PLATELET COUNT 50 10^3/uL (150-450)
[2019-04-04 16:15] LABS: HEMATOCRIT 31.9 % (37.9-51.0); HEMOGLOBIN 10.9 g/dL (13.5-17.0); MEAN CORPUSCULAR HGB CONC 34.2 g/dL (32.0-36.0); MEAN CORPUSCULAR VOLUME 99 fl (80-97); PLATELET COUNT 50 10^3/uL (150-450); RED BLOOD COUNT 3.22 10^6/uL (4.35-5.55); WHITE BLOOD COUNT 3.4 10^3/uL (4.0-10.5)
[2019-04-04 16:19] LABS: ALANINE AMINOTRANSFERASE 22 U/L (21-72); ALBUMIN 3.1 g/dL (3.5-5.0); ALKALINE PHOSPHATASE 133 U/L (38-126); ANION GAP 6 (5-19); ASPARTATE AMINO TRANSFERASE 28 U/L (17-59); BILIRUBIN,DIRECT 0.4 mg/dL (0.0-0.4); BILIRUBIN,TOTAL 1.1 mg/dL (0.2-1.3); BLOOD UREA NITROGEN 30 mg/dL (7-20); CALCIUM 8.7 mg/dL (8.4-10.2); CARBON DIOXIDE 27 mmol/L (22-30); CHLORIDE 108 mmol/L (98-107); GLUCOSE 86 mg/dL (75-110); POTASSIUM 4.8 mmol/L (3.6-5.0); SODIUM 141.3 mmol/L (137-145); TOTAL PROTEIN 6.3 g/dL (6.3-8.2)
[2019-04-04 16:22] LABS: UR PRO/CREAT RATIO RESULT 0.2 mg/mg (0.0-0.2); URINE CREATININE 40.8 mg/dL (22-328); URINE PROTEIN 9.9 mg/dL (<12)
[2019-04-04 16:43] LABS: ALANINE AMINOTRANSFERASE 22 U/L (21-72); ALBUMIN 3.1 g/dL (3.5-5.0); ALKALINE PHOSPHATASE 133 U/L (38-126); ANION GAP 6 (5-19); ASPARTATE AMINO TRANSFERASE 28 U/L (17-59); BILIRUBIN,DIRECT 0.4 mg/dL (0.0-0.4); BILIRUBIN,TOTAL 1.1 mg/dL (0.2-1.3); BLOOD UREA NITROGEN 30 mg/dL (7-20); CALCIUM 8.7 mg/dL (8.4-10.2); CARBON DIOXIDE 27 mmol/L (22-30); CHLORIDE 108 mmol/L (98-107); GLUCOSE 86 mg/dL (75-110); POTASSIUM 4.8 mmol/L (3.6-5.0); SODIUM 141.3 mmol/L (137-145); TOTAL PROTEIN 6.3 g/dL (6.3-8.2)
== END ==
LOC: OD 14:33
PROVIDERS: ATTEND Internal Medicine Nephrology
DX: N18.3 Chronic kidney disease, stage 3 (moderate) (principal); D64.9 Anemia, unspecified; R80.9 Proteinuria, unspecified; K74.69 Other cirrhosis of liver
CPT/HCPCS: 36415; 80048; 80053; 80076; 81001; 82105; 82570; 84156; 85025; 85027; 85610

== ENCOUNTER → 2019-08-07 | Outpatient (CLI) | payer MEDICARE, OTHER ==
[2019-08-07 08:24] LABS: ABSOLUTE EOSINOPHILS # (AUTO) 0.3 10^3/uL (0.0-0.6); ABSOLUTE LYMPHOCYTES (AUTO) 0.5 10^3/uL (0.5-4.7); ABSOLUTE MONOCYTES (AUTO) 0.3 10^3/uL (0.1-1.4); ABSOLUTE NEUT (AUTO) 2.3 10^3/uL (1.7-8.2); BASOPHILS % (AUTO) 0.9 % (0-2); EOSINOPHILS % (AUTO) 8.9 % (0-6); HEMATOCRIT 30.8 % (37.9-51.0); HEMOGLOBIN 10.8 g/dL (13.5-17.0); MEAN CORPUSCULAR HGB CONC 34.9 g/dL (32.0-36.0); MEAN CORPUSCULAR VOLUME 92 fl (80-97); MONOCYTES % (AUTO) 9.3 % (3-13); RED BLOOD COUNT 3.36 10^6/uL (4.35-5.55); RED CELL DISTRIBUTION WIDTH 17.7 % (11.5-14.0); SEGMENTED NEUTROPHILS % (AUTO) 67.9 % (42-78); TOTAL CELLS COUNTED % (AUTO) 100 %; WHITE BLOOD COUNT 3.5 10^3/uL (4.0-10.5)
[2019-08-07 08:33] LABS: APPEARANCE,URINE CLEAR; BILIRUBIN,URINE NEGATIVE (NEGATIVE); GLUCOSE, URINE NEGATIVE (NEGATIVE); KETONES,URINE NEGATIVE (NEGATIVE); LEUKOCYTE ESTERASE,URINE NEGATIVE (NEGATIVE); NITRITE,URINE NEGATIVE (NEGATIVE); PROTEIN,URINE 100 mg/dL (NEGATIVE); URINE SPECIFIC GRAVITY 1.017; UROBILINOGEN,URINE NEGATIVE mg/dL (<2.0)
[2019-08-07 08:34] LABS: COLOR,URINE DARK YELLOW
[2019-08-07 08:51] LABS: ALBUMIN 2.8 g/dL (3.5-5.0); ALKALINE PHOSPHATASE 126 U/L (38-126); ASPARTATE AMINO TRANSFERASE 28 U/L (17-59); BILIRUBIN,DIRECT 0.5 mg/dL (0.0-0.4); BILIRUBIN,TOTAL 1.6 mg/dL (0.2-1.3); BLOOD UREA NITROGEN 29 mg/dL (7-20); CALCIUM 8.7 mg/dL (8.4-10.2); GLUCOSE 97 mg/dL (75-110); POTASSIUM 4.6 mmol/L (3.6-5.0); TOTAL PROTEIN 6.1 g/dL (6.3-8.2)
[2019-08-07 08:55] LABS: PLATELET COUNT 41 10^3/uL (150-450)
[2019-08-07 08:57] LABS: ANION GAP 5 (5-19); CARBON DIOXIDE 30 mmol/L (22-30); CHLORIDE 108 mmol/L (98-107)
== END ==
LOC: OD 07:14
PROVIDERS: ATTEND Internal Medicine Nephrology
DX: E11.22 Type 2 diabetes mellitus with diabetic chronic kidney disease (principal); N18.3 Chronic kidney disease, stage 3 (moderate); E87.5 Hyperkalemia; D64.9 Anemia, unspecified
CPT/HCPCS: 36415; 80053; 81001; 85025

== ENCOUNTER → 2019-10-30 | Outpatient (CLI) | payer MEDICARE, OTHER ==
--- NOTE | 2019-10-30 10:57 | RADIOLOGY REPORT (SQ) ---
EXAM DESCRIPTION: U/S ABDOMEN LIMITED W/O DOP COMPLETED DATE/TIME: 10/30/2019 9:51 am REASON FOR STUDY: K74.69 OTHER CIRRHOSIS OF LIVER K74.69 OTHER CIRRHOSIS OF LIVER COMPARISON: 07/21/2017 TECHNIQUE: Dynamic and static grayscale images acquired of the abdomen and recorded on PACS. Additio nal selected color Doppler and spectral images recorded. LIMITATIONS: Some structures not well visualized. FINDINGS: PANCREAS: Not well visualized. LIVER: Cirrhotic hepatic morphology. No intrahepatic ductal dilation. No discrete lesions identifie d. LIVER VASCULATURE: Normal directional flow of the main portal vein with pulsatile waveform. Patent h epatic veins. GALLBLADDER: Surgically absent. ULTRASOUND-DETECTED GRAY'S SIGN: Not applicable. INTRAHEPATIC DUCTS AND COMMON DUCT: CBD and intrahepatic ducts normal caliber. No filling defects. INFERIOR VENA CAVA: Normal flow. AORTA: No aneurysm. RIGHT KIDNEY: Normal size measuring 10.8 cm. Normal echogenicity. No solid or suspicious masses. No hydronephrosis. No calcifications. PERITONEAL AND RIGHT PLEURAL SPACE: Moderate volume ascites. OTHER: No other significant findings. IMPRESSION: Cirrhotic hepatic morphology with moderate volume ascites. TECHNICAL DOCUMENTATION: JOB ID: [id number] [employer]- All Rights Reserved Reading location - IP/workstation name: [email or web address]
== END ==
LOC: RAD 08:56
PROVIDERS: ATTEND Internal Medicine Gastroenterology
DX: K74.69 Other cirrhosis of liver (principal)
CPT/HCPCS: 76705

== ENCOUNTER 2019-11-01 21:54 | Inpatient (IN) | payer MEDICARE, OTHER ==
[2019-11-01 22:22] LABS: INTERNATIONAL RATION (INR) 1.39; PROTHROMBIN TIME 17.2 SEC (11.4-15.4)
[2019-11-01 22:23] LABS: PARTIAL THROMBOPLASTIN TIME 37.4 SEC (23.5-35.8)
--- NOTE | 2019-11-01 22:25 | RADIOLOGY REPORT (SQ) ---
CT HEAD WITHOUT IV CONTRAST EXAM DATE: 11/01/2019 10:03 PM REAL ESTATE APPRAISER HISTORY: Stroke-like symptoms. COMPARISON: 12/15/2017 TECHNIQUE: CT scan of the brain without IV contrast. This exam was performed according to our departmental dose-optimization program, which includes automated exposure control, adjustment of the mA and/or kV according to patient size and/or use of iterative reconstruction technique. FINDINGS: There are old areas of encephalomalacia in the left frontal and parietal lobes. No evidence of acute infarction, intracranial hemorrhage, extra-axial fluid collection, or midline shift. No air-fluid levels are seen in the paranasal sinuses to suggest acute sinusitis. No depressed skull fracture. IMPRESSION: No acute intracranial findings are seen. Please note that MRI is more sensitive for the evaluation of early infarction, and may be performed if there is high clinical concern.
[2019-11-01 22:26] LABS: ABSOLUTE EOSINOPHILS # (AUTO) 0.1 10^3/uL (0.0-0.6); ABSOLUTE LYMPHOCYTES (AUTO) 0.5 10^3/uL (0.5-4.7); ABSOLUTE MONOCYTES (AUTO) 0.5 10^3/uL (0.1-1.4); BASOPHILS % (AUTO) 0.3 % (0-2); HEMOGLOBIN 12.3 g/dL (13.5-17.0); LYMPHOCYTES % (AUTO) 7.2 % (13-45); MEAN CORPUSCULAR HGB CONC 35.1 g/dL (32.0-36.0); MEAN CORPUSCULAR VOLUME 97 fl (80-97); MONOCYTES % (AUTO) 6.6 % (3-13); RED BLOOD COUNT 3.61 10^6/uL (4.35-5.55); RED CELL DISTRIBUTION WIDTH 16.3 % (11.5-14.0); SEGMENTED NEUTROPHILS % (AUTO) 83.9 % (42-78); TOTAL CELLS COUNTED % (AUTO) 100 %; WHITE BLOOD COUNT 7.2 10^3/uL (4.0-10.5)
[2019-11-01 22:33] LABS: ALBUMIN 2.8 g/dL (3.5-5.0); ALKALINE PHOSPHATASE 183 U/L (38-126); ANION GAP 6 (5-19); ASPARTATE AMINO TRANSFERASE 34 U/L (17-59); BILIRUBIN,DIRECT 0.6 mg/dL (0.0-0.4); BILIRUBIN,TOTAL 1.8 mg/dL (0.2-1.3); BLOOD UREA NITROGEN 33 mg/dL (7-20); CALCIUM 8.5 mg/dL (8.4-10.2); CARBON DIOXIDE 27 mmol/L (22-30); CHLORIDE 106 mmol/L (98-107); CREATINE KINASE 48 U/L (55-170); GLUCOSE 131 mg/dL (75-110); POTASSIUM 4.4 mmol/L (3.6-5.0); TOTAL PROTEIN 6.6 g/dL (6.3-8.2)
[2019-11-01 22:41] LABS: PLATELET COUNT 68 10^3/uL (150-450)
[2019-11-01 23:00] LABS: CREATINE KINASE MB 1.22 ng/mL (<4.55); TROPONIN I 0.018 ng/mL
[2019-11-01] MEDS ORDERED: LACTULOSE SYRUP 20 GM/30 ML UDCUP PO ONE (23:56)
--- NOTE | 2019-11-02 | RADIOLOGY REPORT (SQ) ---
XR CHEST 1 VIEW EXAM DATE: 11/01/2019 10:03 PM MACHINE SHOP WORKER HISTORY: Stroke. COMPARISON: 06/03/2017 FINDINGS: The cardiomediastinal silhouette is enlarged with prior median sternotomy noted. There is mild pulmonary vascular congestion. There is a small left pleural effusion with adjacent airspace disease. No pneumothorax is seen. No acute bony findings are seen. IMPRESSION: Small left pleural effusion with adjacent airspace disease. Mild pulmonary edema.
--- NOTE | 2019-11-02 00:05 | EKG REPORT ---
SEVERITY:- ABNORMAL ECG - SINUS RHYTHM VENTRICULAR BIGEMINY ABERRANT COMPLEX FIRST DEGREE AV BLOCK NONSPECIFIC T ABNORMALITIES, LATERAL LEADS BORDERLINE PROLONGED QT INTERVAL : Confirmed by: Faith Ramos MD 02-Nov-2019 00:05:11
--- NOTE | 2019-11-02 00:09 | ER Document Report ---
ED General - General Chief Complaint: S/S of Possible Stroke Stated Complaint: POSSIBLE STROKE Time Seen by Provider: 11/01/19 22:05 Primary Care Provider: KHLOE COLE MD [Primary Care Provider] - Follow up as needed Mode of Arrival: Medic Information source: Patient, Relative Cannot obtain history due to: Dementia TRAVEL OUTSIDE OF THE [place] IN LAST 30 DAYS: No - HPI Patient complains to provider of: altered mental status Onset: Other - Today Onset/Duration: Gradual Quality of pain: No pain Associated symptoms: Other - confused, trouble moving left side Exacerbated by: Denies Relieved by: Denies Similar symptoms previously: No Recently seen / treated by doctor: No - Related Data Allergies/Adverse Reactions: No Known Allergies Allergy (Verified 04/19/18 15:55) Home Medications: See medication list Past Medical History - Social History Smoking Status: Former Smoker Frequency of alcohol use: None Family History: DM, Hypertension Patient has suicidal ideation: No Patient has homicidal ideation: No - Past Medical History Cardiac Medical History: Reports: Hx Coronary Artery Disease, Hx Heart Attack, Hx Hypercholesterolemia, Hx Hypertension Pulmonary Medical History: Denies: Hx Asthma, Hx Bronchitis, Hx COPD, Hx Pneumonia, Hx Tuberculosis Neurological Medical History: Reports: Hx Cerebrovascular Accident. Denies: Hx Seizures Endocrine Medical History: Reports: Hx Diabetes Mellitus Type 2, Hx Hypothyroidism Renal/ Medical History: Denies: Hx Peritoneal Dialysis GI Medical History: Reports: Hx Cirrhosis Musculoskeletal Medical History: Denies Hx Arthritis Psychiatric Medical History: Reports: Hx Dementia, Hx Depression Past Surgical History: Reports: Hx Cardiac Catheterization, Hx Cardiac Surgery, Hx Cholecystectomy, Hx Gastric Bypass Surgery. Denies: Hx Pacemaker - Immunizations Hx Diphtheria, Pertussis, Tetanus Vaccination: No Review of Systems - Review of Systems Constitutional: Other - altered mental status EENT: No symptoms reported Cardiovascular: No symptoms reported Respiratory: No symptoms reported Gastrointestinal: Nausea, Vomiting Genitourinary: No symptoms reported Male Genitourinary: No symptoms reported Musculoskeletal: No symptoms reported Skin: No symptoms reported Hematologic/Lymphatic: No symptoms reported Neurological/Psychological: Confusion Physical Exam - Vital signs Vitals: Temp Pulse Resp BP Pulse Ox 98.0 F 69 24 H 153/59 H 96 11/01/19 22:05 11/01/19 22:05 11/01/19 22:05 11/01/19 22:05 11/01/19 22:05 - Notes Notes: GENERAL: Well-appearing, well-nourished and in no acute distress, not well groomed HEAD: Atraumatic, normocephalic. EYES: Pupils equal round and reactive to light, extraocular movements intact, sclera anicteric, conjunctiva are normal. ENT: TMs normal, nares patent, oropharynx clear without exudates. Moist mucous membranes. NECK: Normal range of motion, supple without lymphadenopathy or JVD. LUNGS: Breath sounds clear to auscultation bilaterally and equal. No wheezes rales or rhonchi. HEART: Regular rate and rhythm, audible mechanical valve, no rubs or gallops. ABDOMEN: Soft, nontender, normoactive bowel sounds. No guarding, no rebound. No masses appreciated. EXTREMITIES: Normal range of motion, no pitting or edema. No clubbing or cyanosis. NEUROLOGICAL: Patient is moving all extremities but he is not moving his left side as much. Patient is unable to follow complex commands. Difficult to assess patient's mental status. Patient is very hard of hearing. PSYCH: Normal mood, normal affect. SKIN: Warm, Dry, normal turgor, no rashes or lesions noted. Course - Re-evaluation Re-evalutation: 11/02/19 00:20 The patient arrived as a possible stroke code since he was not speaking and not moving his left side much. The patient was unable to provide a history in the ER but his came shortly after his arrival and she said he has been getting worse in the last 12 hours but he was much worse when she got back from Synagogue at 8pm. The patient arrived in the ER around 10pm which was according to the was right around the 3 hour chandler for last known normal. The patient started moving his left arm while in the ER during my examination. The patient's also said the patient has not been using his lactulose as normal and his ammonia level came back in the 140s. The patient also has XUAN. Patient admitted for further care. - Vital Signs Vital signs: Temp Pulse Resp BP Pulse Ox 98.0 F 69 24 H 153/59 H 96 11/01/19 22:07 11/01/19 22:05 11/01/19 22:07 11/01/19 22:07 11/01/19 22:07 - Laboratory Result Diagrams: 11/01/19 21:40 11/01/19 21:40 Laboratory results interpreted by me: 11/01/19 11/01/19 11/01/19 21:40 21:40 21:40 RBC 3.61 L Hgb 12.3 L Hct 35.0 L MCH 34.0 H RDW 16.3 H Plt Count 68 L Lymph % (Auto) 7.2 L Seg Neutrophils % 83.9 H PT 17.2 H APTT 37.4 H BUN 33 H Creatinine 2.20 H Est GFR ( Amer) 35 L Est GFR (MDRD) Non-Af 29 L Glucose 131 H Total Bilirubin 1.8 H Direct Bilirubin 0.6 H Alkaline Phosphatase 183 H Ammonia Creatine Kinase 48 L Albumin 2.8 L 11/01/19 23:06 RBC Hgb Hct MCH RDW Plt Count Lymph % (Auto) Seg Neutrophils % PT APTT BUN Creatinine Est GFR ( Amer) Est GFR (MDRD) Non-Af Glucose Total Bilirubin Direct Bilirubin Alkaline Phosphatase Ammonia 146.6 H Creatine Kinase Albumin Critical Care Note - Critical Care Note Total time excluding time spent on procedures (mins): 35 Discharge - Discharge Clinical Impression: Metabolic encephalopathy Acute kidney failure Qualifiers: Acute renal failure type: unspecified Qualified Code(s): N17.9 - Acute kidney failure, unspecified Condition: Fair Disposition: ADMITTED INPATIENT Admitting Provider: Pierre (Hospitalist) Unit Admitted: Telemetry Referrals: KHLOE COLE MD [Primary Care Provider] - Follow up as needed
[2019-11-02] MEDS ORDERED: MAG HYDROX/AL HYDROX/SIMETH SUSP 30 ML UDCUP PO PRN (00:19)
[2019-11-02] MEDS ORDERED: IPRATROPIUM/ALBUTEROL 0.5-2.5 MG/3 ML AMPUL NEB PRN (00:19)
[2019-11-02] MEDS: NORMAL SALINE 1000 ML 1,000 ML IV PRN ×2 (03:17→09:44)
--- NOTE | 2019-11-02 05:14 | PDOC H&P ---
History of Present Illness Admission Date/PCP: 11/02/19 00:31 KHLOE COLE MD Patient complains of: Altered mental status History of Present Illness: GABI GONG is a 78 year old male with past medical history of Ramirez, thrombocytopenia, dementia, CKD 3, coronary artery disease, hypertension and deafness. He presents with a gradual onset of confusion and difficulty moving brought to the emergency room for evaluation where he is found to have an ammonia level greater than 100. admits he has missed some lactulose dosing and a reduction in bowel movements. In the emergency room he has a nonfocal work-up, started on lactulose and referred to the hospitalist for admission. Past Medical History Cardiac Medical History: Reports: Coronary Artery Disease, Myocardial Infarction, Hyperlipidema, Hypertension Pulmonary Medical History: Denies: Asthma, Bronchitis, Chronic Obstructive Pulmonary Disease (COPD), Pneumonia, Tuberculosis Neurological Medical History: Denies: Seizures Endocrine Medical History: Reports: Diabetes Mellitus Type 2, Hypothyroidism GI Medical History: Reports: Cirrhosis Musculoskeltal Medical History: Denies: Arthritis Psychiatric Medical History: Reports: Dementia, Depression Hematology: Reports: Anemia Past Surgical History Past Surgical History: Reports: Cardiac Catheterization, Cholecystectomy, Gastric Bypass Surgery Denies: Pacemaker Social History Information Source: Relative, [facility] Records Lives with: Spouse/Significant other Smoking Status: Former Smoker Electronic Cigarette use?: No Frequency of Alcohol Use: None Hx Recreational Drug Use: No Hx Prescription Drug Abuse: No - Advance Directive Resuscitation Status: Full Code Family History Family History: DM, Hypertension Parental Family History Reviewed: Yes Children Family History Reviewed: Yes Sibling(s) Family History Reviewed.: Yes Medication/Allergy Home Medications: Cyanocobalamin (Vitamin B-12) [Vitamin B-12 1000 mcg Tablet] 1,000 mcg PO QHS 12/15/17 Epoetin Chris [Procrit] 10,000 unit IJ ASDIR PRN 12/15/17 Ferrous Sulfate [Iron] 325 mg PO QHS 12/15/17 Fluoxetine HCl [Prozac 20 mg Capsule] 20 mg PO QHS 12/15/17 Levothyroxine Sodium [Synthroid] 137 mcg PO QHS 12/15/17 Furosemide [Lasix 40 mg Tablet] 40 mg PO QAM 04/19/18 Pantoprazole Sodium [Protonix] 40 mg PO DAILY 04/19/18 Ciprofloxacin HCl [Cipro 500 mg Tablet] 500 mg PO Q12 #8 tablet 04/22/18 Lactulose [Cephulac Syrup 20 gm/30 ml Udcup] 20 gm PO TID #900 ml 04/22/18 Nadolol [Corgard] 10 mg PO QHS #30 tablet 04/22/18 Allergies/Adverse Reactions: No Known Allergies Allergy (Verified 04/19/18 15:55) Review of Systems ROS unobtainable: Due to mental status Physical Exam Vital Signs: Temp Pulse Resp BP Pulse Ox 97.7 F 69 17 132/56 H 98 11/02/19 02:00 11/01/19 22:05 11/02/19 02:00 11/02/19 02:00 11/02/19 02:00 Intake & Output 10/31/19 11/01/19 11/02/19 11:59 11:59 11:59 Weight 96.5 kg General appearance: PRESENT: no acute distress, cooperative, mild distress, well-developed Head exam: PRESENT: atraumatic, normocephalic Eye exam: PRESENT: conjunctiva pink, EOMI, PERRLA, scleral icterus Ear exam: PRESENT: normal external ear exam Mouth exam: PRESENT: moist, tongue midline Neck exam: ABSENT: carotid bruit, JVD, lymphadenopathy, thyromegaly Respiratory exam: PRESENT: clear to auscultation isabel, crackles, prolonged expiratory phas. ABSENT: rales, rhonchi, wheezes Cardiovascular exam: PRESENT: RRR. ABSENT: diastolic murmur, rubs, systolic murmur Pulses: PRESENT: normal dorsalis pedis pul Vascular exam: PRESENT: normal capillary refill GI/Abdominal exam: PRESENT: distended, hyperactive bowel sounds, normal bowel sounds, soft. ABSENT: guarding, mass, organolmegaly, rebound, tenderness Rectal exam: PRESENT: deferred Extremities exam: PRESENT: full ROM. ABSENT: calf tenderness, clubbing, pedal edema Neurological exam: PRESENT: altered, awake, CN II-XII grossly intact Psychiatric exam: PRESENT: appropriate affect, normal mood. ABSENT: homicidal ideation, suicidal ideation Skin exam: PRESENT: dry, intact, warm. ABSENT: cyanosis, rash Results Laboratory Results: 11/01/19 21:40 11/01/19 21:40 11/01/19 11/01/19 11/01/19 21:40 21:40 21:40 WBC 7.2 RBC 3.61 L Hgb 12.3 L Hct 35.0 L MCV 97 MCH 34.0 H MCHC 35.1 RDW 16.3 H Plt Count 68 L Seg Neutrophils % 83.9 H Sodium 139.2 Potassium 4.4 Chloride 106 Carbon Dioxide 27 Anion Gap 6 BUN 33 H Creatinine 2.20 H Est GFR ( Amer) 35 L Glucose 131 H Calcium 8.5 Total Bilirubin 1.8 H AST 34 Alkaline Phosphatase 183 H Ammonia Total Protein 6.6 Albumin 2.8 L TSH 9.06 H 11/01/19 23:06 WBC RBC Hgb Hct MCV MCH MCHC RDW Plt Count Seg Neutrophils % Sodium Potassium Chloride Carbon Dioxide Anion Gap BUN Creatinine Est GFR ( Amer) Glucose Calcium Total Bilirubin AST Alkaline Phosphatase Ammonia 146.6 H Total Protein Albumin TSH 11/01/19 11/01/19 21:40 21:40 Creatine Kinase 48 L CK-MB (CK-2) 1.22 Troponin I 0.018 Impressions: Chest X-Ray 11/01/19 22:03 IMPRESSION: Small left pleural effusion with adjacent airspace disease. Mild pulmonary edema. Head CT 11/01/19 22:03 IMPRESSION: No acute intracranial findings are seen. Please note that MRI is more sensitive for the evaluation of early infarction, and may be performed if there is high clinical concern. Assessment and Plan - Diagnosis (1) Hepatic encephalopathy Is this a current diagnosis for this admission?: Yes Plan: Lactulose and education, consider antibiotics (2) Anemia Qualifiers: Anemia type: other cause Other causes of anemia: acute posthemorrhagic Qualified Code(s): D62 - Acute posthemorrhagic anemia Is this a current diagnosis for this admission?: Yes Plan: Secondary to chronic disease, follow-up CBC (3) CKD (chronic kidney disease) Qualifiers: Chronic kidney disease stage: stage 3 (moderate) Qualified Code(s): N18.3 - Chronic kidney disease, stage 3 (moderate) Is this a current diagnosis for this admission?: Yes Plan: Avoid nephrotoxic meds and doses follow-up chemistry (4) Cirrhosis of liver Qualifiers: Hepatic cirrhosis type: unspecified hepatic cirrhosis Ascites presence: without ascites Qualified Code(s): K74.60 - Unspecified cirrhosis of liver Is this a current diagnosis for this admission?: Yes Plan: Ramirez, supportive care, follow-up LFTs (5) Thrombocytopenia Is this a current diagnosis for this admission?: Yes Plan: Secondary to hepatic cirrhosis, follow-up CBC - Time Time Spent with patient: 25-34 minutes - Inpatient Certification Medical Necessity: Need Close Monitoring Due to Risk of Patient Decompensation
[2019-11-02] MEDS: LACTULOSE SYRUP 20 GM/30 ML UDCUP PO SCH ×3 (09:41→17:21)
[2019-11-02 10:00] LABS: FREE T3 1.97 pg/mL (2.77-5.27); FREE T4 (FREE THYROXINE) 1.62 ng/dL (0.78-2.19)
[2019-11-02 15:03] LABS: URINE AMPHETAMINES SCREEN NEGATIVE; URINE BARBITURATES SCREEN NEGATIVE; URINE BENZODIAZEPINES SCREEN NEGATIVE; URINE COCAINE SCREEN NEGATIVE; URINE MARIJUANA (THC) SCREEN NEGATIVE; URINE METHADONE SCREEN NEGATIVE; URINE PHENCYCLIDINE SCREEN NEGATIVE
[2019-11-02 15:07] LABS: APPEARANCE,URINE CLEAR; BILIRUBIN,URINE NEGATIVE (NEGATIVE); COLOR,URINE YELLOW; GLUCOSE, URINE NEGATIVE (NEGATIVE); KETONES,URINE NEGATIVE (NEGATIVE); LEUKOCYTE ESTERASE,URINE NEGATIVE (NEGATIVE); NITRITE,URINE NEGATIVE (NEGATIVE); PROTEIN,URINE 100 mg/dL (NEGATIVE); URINE SPECIFIC GRAVITY 1.016
[2019-11-02] MEDS: HEPARIN SOD (PORCINE) 5,000 UNIT/ML 1 ML VIAL SUBCUT SCH (17:19)
[2019-11-02] MEDS ORDERED: (PENDING PHARMACY ID) (Bumetanide [Bumex 0.5 Mg Tablet] 0.5 MG) PO SCH (18:45)
[2019-11-02] MEDS: CEFTRIAXONE 1 GM/D5W RTU 1 GM/50 ML RTUPB IV SCH (21:16)
[2019-11-02] MEDS: BUMETANIDE 1 MG TABLET PO SCH (21:17)
[2019-11-02] MEDS: NADOLOL 40 MG TABLET PO SCH (21:25)
[2019-11-03] MEDS: LEVOTHYROXINE SODIUM 0.112 MG TABLET PO SCH (05:51)
[2019-11-03] MEDS: LEVOTHYROXINE SODIUM 0.025 MG TABLET PO SCH (05:51)
[2019-11-03] MEDS ORDERED: (PENDING PHARMACY ID) (Levothyroxine Sodium [Synthroid] 137 MCG) PO SCH (06:00)
[2019-11-03] MEDS: HEPARIN SOD (PORCINE) 5,000 UNIT/ML 1 ML VIAL SUBCUT SCH ×4 (06:36→21:30)
[2019-11-03 06:51] LABS: ABSOLUTE EOSINOPHILS # (AUTO) 0.1 10^3/uL (0.0-0.6); ABSOLUTE LYMPHOCYTES (AUTO) 0.3 10^3/uL (0.5-4.7); ABSOLUTE MONOCYTES (AUTO) 0.3 10^3/uL (0.1-1.4); BASOPHILS % (AUTO) 0.6 % (0-2); EOSINOPHILS % (AUTO) 3.3 % (0-6); HEMATOCRIT 29.9 % (37.9-51.0); HEMOGLOBIN 10.6 g/dL (13.5-17.0); LYMPHOCYTES % (AUTO) 8.8 % (13-45); MEAN CORPUSCULAR HEMOGLOBIN 33.9 pg (27.0-33.4); MEAN CORPUSCULAR HGB CONC 35.4 g/dL (32.0-36.0); MEAN CORPUSCULAR VOLUME 96 fl (80-97); MONOCYTES % (AUTO) 7.6 % (3-13); RED BLOOD COUNT 3.12 10^6/uL (4.35-5.55); RED CELL DISTRIBUTION WIDTH 15.5 % (11.5-14.0); SEGMENTED NEUTROPHILS % (AUTO) 79.7 % (42-78); TOTAL CELLS COUNTED % (AUTO) 100 %; WHITE BLOOD COUNT 3.8 10^3/uL (4.0-10.5)
[2019-11-03 07:13] LABS: PLATELET COUNT 37 10^3/uL (150-450)
[2019-11-03 07:14] LABS: ALBUMIN 2.4 g/dL (3.5-5.0); ALKALINE PHOSPHATASE 122 U/L (38-126); ASPARTATE AMINO TRANSFERASE 26 U/L (17-59); BILIRUBIN,DIRECT 0.6 mg/dL (0.0-0.4); BILIRUBIN,TOTAL 1.7 mg/dL (0.2-1.3); BLOOD UREA NITROGEN 34 mg/dL (7-20); CALCIUM 8.5 mg/dL (8.4-10.2); CARBON DIOXIDE 26 mmol/L (22-30); GLUCOSE 84 mg/dL (75-110); POTASSIUM 4.2 mmol/L (3.6-5.0); TOTAL PROTEIN 5.7 g/dL (6.3-8.2)
[2019-11-03 07:19] LABS: ANION GAP 5 (5-19); CHLORIDE 111 mmol/L (98-107)
[2019-11-03] MEDS ORDERED: NORMAL SALINE 250 ML IV PRN ×2 (08:10)
[2019-11-03] MEDS: LACTULOSE SYRUP 20 GM/30 ML UDCUP PO SCH ×3 (10:26→18:02)
[2019-11-03] MEDS: BUMETANIDE 1 MG TABLET PO SCH (10:26)
[2019-11-03] MEDS: FLUOXETINE HCL 20 MG CAPSULE PO SCH (10:26)
--- NOTE | 2019-11-03 14:49 | PDOC PROGRESS REPORT ---
Subjective Progress Note for:: 11/03/19 Subjective:: This is a 69-year-old male with a past medical history of AMBROSIO, hepatic cirrhosis, chronic thrombocytopenia, portal hypertension and gastropathy, history of GI bleed, dementia, CKD 3, coronary artery disease, hypertension and deafness who was brought in due to increasing confusion at home. He was admitted for likely hepatic encephalopathy. No acute event overnight. He had 2 bowel movements yesterday. This morning, he is more coherent and conversant. He was supposed to go for paracentesis today however his platelets drop from 68 to 37. He will be getting a platelet transfusion prior to paracentesis. Reason For Visit: AMS HEPATIC, ENCEPHALOPATHY Physical Exam Vital Signs: Temp Pulse Resp BP Pulse Ox 98.9 F 68 14 154/54 H 96 11/03/19 11:03 11/03/19 11:47 11/03/19 11:47 11/03/19 11:03 11/03/19 11:47 Intake & Output 11/02/19 11/03/19 11/04/19 06:59 06:59 06:59 Intake Total 2596 635 Output Total 100 Balance 2496 635 Weight 199 lb 1.239 oz 195 lb 1.745 oz General appearance: PRESENT: no acute distress, well-developed, well-nourished Head exam: PRESENT: atraumatic, normocephalic Eye exam: PRESENT: conjunctiva pink, EOMI, PERRLA. ABSENT: scleral icterus Ear exam: PRESENT: normal external ear exam Mouth exam: PRESENT: moist, tongue midline Neck exam: ABSENT: carotid bruit, JVD, lymphadenopathy, thyromegaly Respiratory exam: PRESENT: clear to auscultation isabel. ABSENT: rales, rhonchi, wheezes Cardiovascular exam: PRESENT: RRR. ABSENT: diastolic murmur, rubs, systolic murmur Pulses: PRESENT: normal dorsalis pedis pul GI/Abdominal exam: PRESENT: ascites. ABSENT: tenderness Rectal exam: PRESENT: deferred Neurological exam: PRESENT: alert, awake, oriented to person, CN II-XII grossly intact. ABSENT: motor sensory deficit Results Laboratory Results: 11/03/19 06:27 11/03/19 06:27 11/02/19 11/02/19 11/03/19 04:47 14:21 06:27 WBC 3.8 L RBC 3.12 L Hgb 10.6 L Hct 29.9 L MCV 96 MCH 33.9 H MCHC 35.4 RDW 15.5 H Plt Count 37 L Seg Neutrophils % 79.7 H Sodium Potassium Chloride Carbon Dioxide Anion Gap BUN Creatinine Est GFR ( Amer) Glucose Calcium Magnesium 2.2 Total Bilirubin AST Alkaline Phosphatase Ammonia Total Protein Albumin Urine Color YELLOW Urine Appearance CLEAR Urine pH 5.0 Ur Specific [place] 1.016 Urine Protein 100 H Urine Glucose (UA) NEGATIVE Urine Ketones NEGATIVE Urine Blood LARGE H Urine Nitrite NEGATIVE Ur Leukocyte Esterase NEGATIVE Urine WBC (Auto) 1 Urine RBC (Auto) 17 Blood Type 11/03/19 11/03/19 11/03/19 06:27 06:27 09:06 WBC RBC Hgb Hct MCV MCH MCHC RDW Plt Count Seg Neutrophils % Sodium 141.7 Potassium 4.2 Chloride 111 H Carbon Dioxide 26 Anion Gap 5 BUN 34 H Creatinine 2.06 H Est GFR ( Amer) 38 L Glucose 84 Calcium 8.5 Magnesium Total Bilirubin 1.7 H AST 26 Alkaline Phosphatase 122 Ammonia 43.2 H Total Protein 5.7 L Albumin 2.4 L Urine Color Urine Appearance Urine pH Ur Specific [place] Urine Protein Urine Glucose (UA) Urine Ketones Urine Blood Urine Nitrite Ur Leukocyte Esterase Urine WBC (Auto) Urine RBC (Auto) Blood Type O POSITIVE 11/01/19 11/01/19 21:40 21:40 Creatine Kinase 48 L CK-MB (CK-2) 1.22 Troponin I 0.018 Impressions: Chest X-Ray 11/01/19 22:03 IMPRESSION: Small left pleural effusion with adjacent airspace disease. Mild pulmonary edema. Head CT 11/01/19 22:03 IMPRESSION: No acute intracranial findings are seen. Please note that MRI is more sensitive for the evaluation of early infarction, and may be performed if there is high clinical concern. Assessment and Plan - Diagnosis (1) Hepatic encephalopathy Is this a current diagnosis for this admission?: Yes Plan: Improving. Continue lactulose. (2) Pulmonary edema Is this a current diagnosis for this admission?: Yes Plan: Likely related to fluid overload from end-stage liver disease and chronic renal failure. Bumex resumed yesterday. Revise diuretic regimen to lasix and spiroloctone. (3) Cirrhosis of liver Qualifiers: Hepatic cirrhosis type: unspecified hepatic cirrhosis Ascites presence: without ascites Qualified Code(s): K74.60 - Unspecified cirrhosis of liver Is this a current diagnosis for this admission?: Yes Plan: Likely from AMBROSIO. Child Ceja Class C (1-3 yr expectancy). MELD score of 19 (6% 3 month mortality). (4) Thrombocytopenia Is this a current diagnosis for this admission?: Yes Plan: He has chronic thrombocytopenia. Secondary to chronic liver disease. Will be given a platelet transfusion prior to paracentesis. (5) Hypertension Qualifiers: Hypertension type: unspecified Qualified Code(s): I10 - Essential (primary) hypertension Is this a current diagnosis for this admission?: Yes - Time Time Spent with patient: 25-34 minutes
[2019-11-03 16:25] LABS: FLUID APPEARANCE CLOUDY; FLUID COLOR STRAW; FLUID SOURCE ABDOMEN; FLUID TYPE PERITONEAL
[2019-11-03 16:26] LABS: FLUID VISCOSITY LIQUID
[2019-11-03 16:35] LABS: HEMATOCRIT 30.1 % (37.9-51.0); HEMOGLOBIN 10.6 g/dL (13.5-17.0); MEAN CORPUSCULAR HEMOGLOBIN 34.1 pg (27.0-33.4); MEAN CORPUSCULAR HGB CONC 35.2 g/dL (32.0-36.0); MEAN CORPUSCULAR VOLUME 97 fl (80-97); RED BLOOD COUNT 3.11 10^6/uL (4.35-5.55); RED CELL DISTRIBUTION WIDTH 15.6 % (11.5-14.0); WHITE BLOOD COUNT 5.3 10^3/uL (4.0-10.5)
--- NOTE | 2019-11-03 16:42 | RADIOLOGY REPORT (SQ) ---
EXAM DESCRIPTION: CHEST SINGLE VIEW COMPLETED DATE/TIME: 11/03/2019 3:31 pm REASON FOR STUDY: post paracentesis COMPARISON: 11/01/2019 EXAM PARAMETERS: NUMBER OF VIEWS: One view. TECHNIQUE: Single frontal radiographic view of the chest acquired. RADIATION DOSE: NA LIMITATIONS: None. FINDINGS: LUNGS AND PLEURA: Persistent interstitial opacities with more focal left basilar opacity a nd small left effusion. No pneumothorax. MEDIASTINUM AND HILAR STRUCTURES: No masses. Contour normal. HEART AND VASCULAR STRUCTURES: Enlarged, stable. Sternotomy wires. BONES: No acute findings. HARDWARE: None in the chest. OTHER: No other significant finding. IMPRESSION: Enlarged cardiac silhouette with likely interstitial edema. Stable small left effusion and basilar opacities likely atelectasis. TECHNICAL DOCUMENTATION: JOB ID: [id number] [employer]- All Rights Reserved Reading location - IP/workstation name: [email or web address]
--- NOTE | 2019-11-03 16:50 | RADIOLOGY REPORT (SQ) ---
EXAM DESCRIPTION: U/S ABD PARACENTESIS COMPLETED DATE/TIME: 11/03/2019 2:48 pm REASON FOR STUDY: ascites, distention COMPARISON None. LIMITATIONS: None. PROCEDURE: After obtaining informed consent, the patient was brought to the ultrasound suite. The p rocedure was performed with the patient on a gurney. Ultrasound was used to identify a prominent poc ket of ascites in the right lower quadrant. An appropriate access site was selected. The patient wa s prepped and draped in usual sterile fashion. The access site was anesthetized with 8 mL 1% lidoca ine. A [id number] needle was advanced into the fluid. After aspiration of fluid the needle, th e catheter was advanced off the needle into the fluid. A total of 2,400 mL of cloudy yellow fluid wa s removed. The patient tolerated the procedure well left the department in satisfactory condition. IMPRESSION: Successful ultrasound-guided paracentesis COMMENT: Patient medication list reviewed: Yes- Quality ID# [id number]:Eligible professional attests to doc umenting in the medical record they obtained, updated, or reviewed the patient's current medications. TECHNICAL DOCUMENTATION: JOB ID: [id number] [employer]- All Rights Reserved Reading location - IP/workstation name: [email or web address] [id number]
[2019-11-03 16:58] LABS: PLATELET COUNT 48 10^3/uL (150-450)
[2019-11-03] MEDS: CEFTRIAXONE 1 GM/D5W RTU 1 GM/50 ML RTUPB IV SCH (21:28)
[2019-11-03] MEDS: SPIRONOLACTONE 25 MG TABLET PO SCH (21:29)
[2019-11-03] MEDS: NADOLOL 40 MG TABLET PO SCH (21:30)
[2019-11-04] MEDS: HEPARIN SOD (PORCINE) 5,000 UNIT/ML 1 ML VIAL SUBCUT SCH (06:22)
[2019-11-04] MEDS: LEVOTHYROXINE SODIUM 0.025 MG TABLET PO SCH (06:23)
[2019-11-04] MEDS: LEVOTHYROXINE SODIUM 0.112 MG TABLET PO SCH (06:23)
[2019-11-04] MEDS ORDERED: INFLUENZA QUAD (6MOS+) 2019-20 VAC 0.5 ML SYR IM ONE (07:20)
[2019-11-04 07:37] LABS: HEPATITS B SURFACE ANTIGEN Negative (Negative)
[2019-11-04 09:06] LABS: ANION GAP 6 (5-19); BLOOD UREA NITROGEN 32 mg/dL (7-20); CALCIUM 8.1 mg/dL (8.4-10.2); CARBON DIOXIDE 27 mmol/L (22-30); CHLORIDE 109 mmol/L (98-107); GLUCOSE 100 mg/dL (75-110); POTASSIUM 4.1 mmol/L (3.6-5.0)
[2019-11-04] MEDS: LACTULOSE SYRUP 20 GM/30 ML UDCUP PO SCH (11:47)
[2019-11-04] MEDS: FUROSEMIDE 20 MG TABLET PO SCH ×2 (11:49→11:57)
[2019-11-04] MEDS: SPIRONOLACTONE 25 MG TABLET PO SCH (11:49)
[2019-11-04] MEDS: FLUOXETINE HCL 20 MG CAPSULE PO SCH (11:49)
[2019-11-04] MEDS ORDERED: BUMETANIDE 1 MG TABLET PO SCH (12:00)
[2019-11-04 12:57] VITALS: BP 159/49
--- NOTE | 2019-11-04 18:35 | PDOC DISCHARGE SUMMARY ---
Impression - Admit/DC Date/PCP Admission Date/Primary Care Provider: 11/02/19 00:31 KHLOE COLE MD Discharge Date: 11/04/19 - Discharge Diagnosis (1) Hepatic encephalopathy Is this a current diagnosis for this admission?: Yes (2) Pulmonary edema Is this a current diagnosis for this admission?: Yes (3) Cirrhosis of liver Is this a current diagnosis for this admission?: Yes (4) Thrombocytopenia Is this a current diagnosis for this admission?: Yes (5) Hypertension Is this a current diagnosis for this admission?: Yes - Additional Information Resuscitation Status: Do Not Resuscitate Discharge Diet: Regular Discharge Activity: Activity As Tolerated Referrals: KHLOE COLE MD [Primary Care Provider] - Follow up as needed Prescriptions: Lactulose [Constulose 10 gm/15 mL Oral Solution] 10 gm PO BIDP PRN #2 bottle PRN Reason: Propranolol HCl [Inderal 10 mg Tablet] 10 mg PO Q12 #60 tab Home Medications: Amlodipine Besylate [Norvasc 2.5 mg Tablet] 2.5 mg PO QHS 11/02/19 Bumetanide [Bumex 0.5 mg Tablet] 0.5 mg PO BID 11/02/19 Cholecalciferol (Vitamin D3) [Vitamin D3 400 Unit Tablet] 400 unit PO DAILY 11/02/19 Cyanocobalamin (Vitamin B-12) [Vitamin B-12 1000 mcg Tablet] 1,000 mcg PO DAILY 11/02/19 Epoetin Chris [Procrit] 0 - 20,000 unit IJ .[id number] 11/02/19 Ferrous Sulfate [Feosol 325 mg Tablet] 325 mg PO DAILY 11/02/19 Fluoxetine HCl [Prozac 20 mg Capsule] 20 mg PO DAILY 11/02/19 Isosorbide Mononitrate [Imdur 60 mg Tablet.er] 60 mg PO DAILY 11/02/19 Levothyroxine Sodium [Synthroid] 137 mcg PO Q6AM 11/02/19 Nitroglycerin [Nitrostat 0.4 mg (1/150 Gr) Tabs 25/Bottle] 1 tab SL Q5MP PRN 11/02/19 Lactulose [Constulose 10 gm/15 mL Oral Solution] 10 gm PO BIDP PRN #2 bottle 11/04/19 Propranolol HCl [Inderal 10 mg Tablet] 10 mg PO Q12 #60 tab 11/04/19 History of Present Illiness History of Present Illness: Admitting hospitalist's H&P: GABI GONG is a 78 year old male with past medical history of Ramirez, thrombocytopenia, dementia, CKD 3, coronary artery disease, hypertension and deafness. He presents with a gradual onset of confusion and difficulty moving brought to the emergency room for evaluation where he is found to have an ammonia level greater than 100. admits he has missed some lactulose dosing and a reduction in bowel movements. In the emergency room he has a nonfocal work-up, started on lactulose and referred to the hospitalist for admission. Hospital Course Hospital Course: This is a 69-year-old male with a past medical history of RAMIREZ, hepatic cirrhosis, chronic thrombocytopenia, portal hypertension and gastropathy, his tory of GI bleed, dementia, CKD 3, coronary artery disease, hypertension and deafness who was brought in due to increasing confusion at home. He was also found to an elevated ammonia level. He was admitted for likely hepatic encephalopathy. Was started on scheduled lactulose. He did have regular bowel movements and had significant improvement in his mentation overnight. His ammonia level also normalized. He had also increasing distention at home. He has moderate ascites and underwent paracentesis. He was given platelet transfusion prior to paracentesis due to his chronic thrombocytopenia. His Bumex was also resumed. Patient did return to his baseline. He has a known advanced directive and is a DNR/DNI. Family has also expressed that he was offered liver transplantation before but has refused surgery. He does not have a history of alcohol drinking. He has also expressed that he does not want dialysis in the future in case his CKD worsens to ESRD. Palliative consult was also placed. No hepatitis panel results on record. Hepatitis panel was sent but will be sent out and will be resulted next week and results will be forwarded to patient's PCP and GI (Dr. Barajas). He is on Bumex at home. Plan was to revise to Aldactone and Lasix however reports that patient had significant itching from Lasix before hence was switched to Bumex. Inderal will be added to his home regimen. Physical Exam Vital Signs: Temp Pulse Resp BP Pulse Ox 98.0 F 59 L 18 159/49 H 95 11/04/19 13:43 11/04/19 13:43 11/04/19 13:43 11/04/19 13:43 11/04/19 13:54 Intake & Output 11/03/19 11/04/19 11/05/19 06:59 06:59 06:59 Intake Total 2596 895 480 Output Total 100 Balance 2496 895 480 Weight 195 lb 1.745 oz 196 lb 3.382 oz General appearance: PRESENT: no acute distress, well-developed, well-nourished Head exam: PRESENT: atraumatic, normocephalic Eye exam: PRESENT: conjunctiva pink, EOMI, PERRLA. ABSENT: scleral icterus Ear exam: PRESENT: normal external ear exam Mouth exam: PRESENT: moist, tongue midline Neck exam: ABSENT: carotid bruit, JVD, lymphadenopathy, thyromegaly Respiratory exam: PRESENT: clear to auscultation isabel. ABSENT: rales, rhonchi, wheezes Cardiovascular exam: PRESENT: RRR. ABSENT: diastolic murmur, rubs, systolic murmur Pulses: PRESENT: normal dorsalis pedis pul GI/Abdominal exam: PRESENT: normal bowel sounds, soft. ABSENT: distended, guarding, mass, organolmegaly, rebound, tenderness Rectal exam: PRESENT: deferred Neurological exam: PRESENT: alert, awake, oriented to person, oriented to place, CN II-XII grossly intact. ABSENT: oriented to time, motor sensory deficit Results Laboratory Results: WBC 5.3 10^3/uL (4.0-10.5) 11/03/19 15:36 RBC 3.11 10^6/uL (4.35-5.55) L 11/03/19 15:36 Hgb 10.6 g/dL (13.5-17.0) L 11/03/19 15:36 Hct 30.1 % (37.9-51.0) L 11/03/19 15:36 MCV 97 fl (80-97) 11/03/19 15:36 MCH 34.1 pg (27.0-33.4) H 11/03/19 15:36 MCHC 35.2 g/dL (32.0-36.0) 11/03/19 15:36 RDW 15.6 % (11.5-14.0) H 11/03/19 15:36 Plt Count 48 10^3/uL (150-450) L 11/03/19 15:36 Lymph % (Auto) 8.8 % (13-45) L 11/03/19 06:27 [place] % (Auto) 7.6 % (3-13) 11/03/19 06:27 Eos % (Auto) 3.3 % (0-6) 11/03/19 06:27 Baso % (Auto) 0.6 % (0-2) 11/03/19 06:27 Absolute Neuts (auto) 3.0 10^3/uL (1.7-8.2) 11/03/19 06:27 Absolute Lymphs (auto) 0.3 10^3/uL (0.5-4.7) L 11/03/19 06:27 Absolute Monos (auto) 0.3 10^3/uL (0.1-1.4) 11/03/19 06:27 Absolute Eos (auto) 0.1 10^3/uL (0.0-0.6) 11/03/19 06:27 Absolute Basos (auto) 0.0 10^3/uL (0.0-0.2) 11/03/19 06:27 Seg Neutrophils % 79.7 % (42-78) H 11/03/19 06:27 PT 17.2 SEC (11.4-15.4) H 11/01/19 21:40 INR 1.39 11/01/19 21:40 APTT 37.4 SEC (23.5-35.8) H 11/01/19 21:40 Sodium 141.6 mmol/L (137-145) 11/04/19 08:28 Potassium 4.1 mmol/L (3.6-5.0) 11/04/19 08:28 Chloride 109 mmol/L (98-107) H 11/04/19 08:28 Carbon Dioxide 27 mmol/L (22-30) 11/04/19 08:28 Anion Gap 6 (5-19) 11/04/19 08:28 BUN 32 mg/dL (7-20) H 11/04/19 08:28 Creatinine 1.91 mg/dL (0.52-1.25) H 11/04/19 08:28 Est GFR ( Amer) 41 (>60) L 11/04/19 08:28 Est GFR (MDRD) Non-Af 34 (>60) L 11/04/19 08:28 Glucose 100 mg/dL (75-110) 11/04/19 08:28 Calcium 8.1 mg/dL (8.4-10.2) L 11/04/19 08:28 Magnesium 2.2 mg/dL (1.6-2.3) 11/02/19 04:47 Total Bilirubin 1.7 mg/dL (0.2-1.3) H 11/03/19 06:27 Direct Bilirubin 0.6 mg/dL (0.0-0.4) H 11/03/19 06:27 Neonat Total Bilirubin Not Reportable 11/03/19 06:27 Neonat Direct Bilirubin Not Reportable 11/03/19 06:27 Neonat Indirect Bili Not Reportable 11/03/19 06:27 AST 26 U/L (17-59) 11/03/19 06:27 ALT 18 U/L (<50) 11/03/19 06:27 Alkaline Phosphatase 122 U/L (38-126) 11/03/19 06:27 Ammonia 27.2 umol/L (9-33) 11/04/19 05:59 Creatine Kinase 48 U/L (55-170) L 11/01/19 21:40 CK-MB (CK-2) 1.22 ng/mL (<4.55) 11/01/19 21:40 Troponin I 0.018 ng/mL 11/01/19 21:40 Total Protein 5.7 g/dL (6.3-8.2) L 11/03/19 06:27 Albumin 2.4 g/dL (3.5-5.0) L 11/03/19 06:27 TSH 9.06 uIU/mL (0.47-4.68) H 11/01/19 21:40 Free T4 1.62 ng/dL (0.78-2.19) 11/01/19 21:40 Free T3 pg/mL 1.97 pg/mL (2.77-5.27) L 11/01/19 21:40 Urine Color YELLOW 11/02/19 14:21 Urine Appearance CLEAR 11/02/19 14:21 Urine pH 5.0 (5.0-9.0) 11/02/19 14:21 Ur Specific [place] 1.016 11/02/19 14:21 Urine Protein 100 mg/dL (NEGATIVE) H 11/02/19 14:21 Urine Glucose (UA) NEGATIVE mg/dL (NEGATIVE) 11/02/19 14:21 Urine Ketones NEGATIVE mg/dL (NEGATIVE) 11/02/19 14:21 Urine Blood LARGE (NEGATIVE) H 11/02/19 14:21 Urine Nitrite NEGATIVE (NEGATIVE) 11/02/19 14:21 Urine Bilirubin NEGATIVE (NEGATIVE) 11/02/19 14:21 Urine Urobilinogen 2.0 mg/dL (<2.0) H 11/02/19 14:21 Ur Leukocyte Esterase NEGATIVE (NEGATIVE) 11/02/19 14:21 Urine WBC (Auto) 1 /HPF 11/02/19 14:21 Urine RBC (Auto) 17 /HPF 11/02/19 14:21 U Hyaline Cast (Auto) 78 /LPF 11/02/19 14:21 Urine Bacteria (Auto) TRACE /HPF 11/02/19 14:21 Squamous Epi Cells Auto <1 /HPF 11/02/19 14:21 Urine Mucus (Auto) RARE /LPF 11/02/19 14:21 Urine Ascorbic Acid NEGATIVE (NEGATIVE) 11/02/19 14:21 Fluid Type PERITONEAL 11/03/19 14:05 Fluid Source ABDOMEN 11/03/19 14:05 Fluid Color STRAW 11/03/19 14:05 Fluid Appearance CLOUDY 11/03/19 14:05 Fluid Viscosity LIQUID 11/03/19 14:05 Fluid WBC 500 /uL 11/03/19 14:05 Fluid RBC 3233 /uL 11/03/19 14:05 Fluid Seg Neutrophils 65 % 11/03/19 14:05 Fluid Lymphocytes 27 % 11/03/19 14:05 Fluid Monocytes 8 % 11/03/19 14:05 Fluid Eosinophils 0 % 11/03/19 14:05 Fluid Basophils 0 % 11/03/19 14:05 Urine Opiates Screen NEGATIVE 11/02/19 14:21 Urine Methadone Screen NEGATIVE 11/02/19 14:21 Ur Barbiturates Screen NEGATIVE 11/02/19 14:21 Ur Phencyclidine Scrn NEGATIVE 11/02/19 14:21 Ur Amphetamines Screen NEGATIVE 11/02/19 14:21 U Benzodiazepines Scrn NEGATIVE 11/02/19 14:21 Urine Cocaine Screen NEGATIVE 11/02/19 14:21 U Marijuana (THC) Screen NEGATIVE 11/02/19 14:21 Blood Type O POSITIVE 11/03/19 09:06 11/01/19 21:40 CK-MB (CK-2) 1.22 Troponin I 0.018 Impressions: Chest X-Ray 11/01/19 22:03 IMPRESSION: Small left pleural effusion with adjacent airspace disease. Mild pulmonary edema. Head CT 11/01/19 22:03 IMPRESSION: No acute intracranial findings are seen. Please note that MRI is more sensitive for the evaluation of early infarction, and may be performed if there is high clinical concern. Paracentesis Ultrasound 11/03/19 00:00 IMPRESSION: Successful ultrasound-guided paracentesis Chest X-Ray 11/03/19 15:00 IMPRESSION: Enlarged cardiac silhouette with likely interstitial edema. Stable small left effusion and basilar opacities likely atelectasis. Stroke Is this a Stroke Patient?: No Acute Heart Failure - Is this a Heart Failure Patient?: No
[2019-11-06 07:12] LABS: HEPATITIS C VIRUS ANTIBODY <0.1 s/co ratio (0.0-0.9)
== END 2019-11-04 14:40 | disposition home or self-care (01) | DRG 442 ==
LOC: ER 21:54 → EH 11-02 00:31 → 5 11-02 02:35 → 4S 11-02 06:41
PROVIDERS: ADMIT Internal Medicine; ATTEND Internal Medicine
PROC: 0W9G3ZZ Drainage of Peritoneal Cavity, Percutaneous Approach (ICD-10-PCS; principal; 2019-11-03)
PROC: 30233R1 Transfusion of Nonautologous Platelets into Peripheral Vein, Percutaneous Approach (ICD-10-PCS; 2019-11-03)
DX: K72.90 Hepatic failure, unspecified without coma (principal); N17.9 Acute kidney failure, unspecified; D62 Acute posthemorrhagic anemia; K75.81 Nonalcoholic steatohepatitis (NASH); K74.60 Unspecified cirrhosis of liver; I12.9 Hypertensive chronic kidney disease with stage 1 through stage 4 chronic kidney disease, or unspecified chronic kidney disease; E11.22 Type 2 diabetes mellitus with diabetic chronic kidney disease; N18.3 Chronic kidney disease, stage 3 (moderate); I25.10 Atherosclerotic heart disease of native coronary artery without angina pectoris; E78.00 Pure hypercholesterolemia, unspecified; D69.6 Thrombocytopenia, unspecified; E03.9 Hypothyroidism, unspecified; I25.2 Old myocardial infarction; Z98.84 Bariatric surgery status; Z86.73 Personal history of transient ischemic attack (TIA), and cerebral infarction without residual deficits
CPT/HCPCS: 36415; 36430; 49083; 70450; 71045; 76705; 80048; 80053; 80074; 80307; 81001; 82140; 82550; 82553; 83735; 84439; 84443; 84481; 84484; 85025; 85610; 85730; 86900; 86901; 87070; 87075; 87205; 89050; 93005; 93010; 99291; J0696; J3490; J7030; P9035